=== PATIENT | female | born 1960 | race Caucasian/White ===

== ENCOUNTER 2024-01-04 14:04 | Emergency (ER) | payer OTHER, SELFPAY ==
[2024-01-04] VITALS (21 sets, daily range): BP systolic 137–177; BP diastolic 58–84; PULSE 57–90; RESP 10–20; TEMP 36.2; O2SAT 99–100
--- NOTE | ~2024-01-04 | CT_ITS ---
EXAMINATION: CT abdomen pelvis w con DATE: 01/04/2024 17:26 INDICATION: Abnormal liver function tests. TECHNIQUE: Computed tomography (CT) of the abdomen and pelvis was performed with 100 mL Omnipaque 350 intravenous contrast. Automated exposure control and iterative reconstruction technique were employe d. The dose-length product was 215.28 mGy-cm. COMPARISON: None. FINDINGS: The visualized portions of the lung bases demonstrate mild atelectasis. No pleural effusion . The heart size is normal. No pericardial effusion. The liver, gallbladder, spleen, pancreas, adrena l glands, and kidneys are normal. There is a calcified fibroid in the uterus. There are no dilated lo ops of bowel. There are no pathologically enlarged lymph nodes. There is no free intraperitoneal flui d. There is mild thoracic spondylosis and severe lumbar spondylosis. IMPRESSION: 1. No etiology for abnormal liver function tests. Reviewed, dictated and finalized at location E. THESIOLOGY MEDICAL DOCTOR
--- NOTE | ~2024-01-04 | CT_ITS ---
EXAMINATION: CT brain wo con DATE: 01/04/2024 15:05 INDICATION: Head injury. TECHNIQUE: Computed tomography (CT) of the head was performed without intravenous contrast. The mA wa s adjusted according to patient size. Iterative reconstruction technique was employed. The dose-lengt h product was 605.33 mGy-cm. COMPARISON: None FINDINGS: There is no acute ischemic infarct or acute intracranial hemorrhage. There is periventricul ar nodular brady matter heterotopia. There are scattered areas of low attenuation in the cerebral whit e matter, which is within normal limits for the patient's age. The ventricles are normal in size. The orbits are normal. The paranasal sinuses are clear. The mastoid air cells are normal. IMPRESSION: 1. Brady matter heterotopia. Reviewed, dictated and finalized at location E. TRONICS SUPERVISOR
[2024-01-04 14:25] LABS: Glucose Point of Care 120 mg/dl (65-105)
--- NOTE | 2024-01-04 14:51 | ED.HEATRA ---
HPI - Head Injury General Chief complaint: Head Injury Stated complaint: head injury Time Seen by Provider: 01/04/24 14:26 History of Present Illness HPI Narrative: Patient is a 63-year-old female who presents ER with headache and confusion. 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 She slipped and fell onto her buttock and has a bruise over low back. She then continued her fall and struck her head. She denies losing consciousness. She has had increased tiredness and nausea. She has been vomiting home. She went to an emergency room yesterday and did not receive a CT scan of her head, she only received fluids. Symptoms persist today so they came in for further evaluation. Patient is on no blood thinning agents. Related Data Allergies Allergy/AdvReac Type Severity Reaction Status Date / Time Penicillins Allergy Rash Verified 01/04/24 14:14 Sulfa (Sulfonamide Allergy Rash Verified 01/04/24 14:14 Antibiotics) Review of Systems Review of Systems: All systems reviewed & are unremarkable except as noted in HPI and below Constitutional: Constitutional: Denies chills, Reports fatigue and Denies fever(s) Eyes: Eyes: Denies change in vision Cardiovascular: Cardiovascular: Reports no additional cardiovascular complaints Respiratory: Respiratory: Reports no additional respiratory complaints Gastrointestinal: Gastrointestinal: Reports abdominal pain ( Suprapubic), Denies diarrhea, Reports nausea and Reports vomiting Musculoskeletal: Musculoskeletal: Reports no additional musculoskeletal complaints Integumentary/Breasts: Comments: bruising of blood back Neurologic: Denies syncope, Reports headache(s), Denies focal weakness and Denies numbness PMFSH Past Medical History Medical History (Updated 01/04/24 @ 18:02 by Slava Meraz MD) Healthy female adult Surgical History Surgical History (Updated 01/04/24 @ 17:06 by Slava Meraz MD) No history of previous surgery Exam Narrative: GENERAL: fatigued-appearing, well-nourished, and in no acute distress. HEAD: Normocephalic, atraumatic. EYES: PERRL and EOMI. ENT: Mucous membranes moist. NECK: Supple. CHEST: Clear to auscultation. No respiratory distress. HEART: Regular rate and rhythm. Normal peripheral pulses. ABDOMEN: Soft, mild prepubic discomfort without guarding, nondistended, normal active bowel sounds. Back: No midline tenderness the T/L-spine. No reproducible paraspinal muscle tenderness. EXTREMITIES: Normal range of motion. No edema. SKIN: Warm, dry, no rash. bruising over low back that is starting to yellow. NEURO: Alert and oriented x3. Course Course Emergency Course: patient resting comfortably. She is eating drinking for the 1st time in several days. Nausea improved with Zofran. She has been hydrated. lab results, no acute injury on head CT. Patient does have UTI which could be compounding some her symptoms. Transaminases elevated. Normal CT abd/pel. Vital Signs Vital signs: Vital Signs Temperature 97.2 F L 01/04/24 14:08 Pulse Rate 78 01/04/24 14:08 Respiratory Rate 20 01/04/24 14:08 Blood Pressure 137/58 L 01/04/24 14:08 Pulse Oximetry 99 01/04/24 14:08 Oxygen Delivery Room Air 01/04/24 14:08 Temperature 97.2 F L 01/04/24 14:08 Pulse Rate 78 01/04/24 17:01 Respiratory Rate 15 01/04/24 17:01 Blood Pressure 165/84 H 01/04/24 17:01 Pulse Oximetry 100 01/04/24 16:46 Oxygen Delivery Room Air 01/04/24 14:08 MDM - Head Injury Lab Data 01/04/24 15:12 01/04/24 15:12 Labs: Lab Results 01/04/24 01/04/24 01/04/24 Range/Units 14:21 15:12 15:23 WBC 5.9 (4.5-10.0) K/mm3 RBC 3.70 L (4.2-5.4) M/mm3 Hgb 11.8 L (12.0-15.0) g/dL Hct 34.1 L (37.0-47.0) % MCV 92.2 (80-100) fl MCH 31.9 (26-34) pg MCHC 34.6 (32-36) g/dl RDW 13.4 (11.5-14.5) % Plt Count 286 (150-375) k/
[2024-01-04 15:23] LABS: Basophils Absolute Auto 0.1 K/mm3 (0.0-0.1); Basophils Percent Auto 1.4 % (0.2-1.2); Eosinophils Absolute Auto 0.3 K/mm3 (0-0.3); Eosinophils Percent Auto 4.4 % (0-4.4); Hematocrit 34.1 % (37.0-47.0); Hemoglobin 11.8 g/dL (12.0-15.0); Immature Granulocyte Absolute 0.01 K/mm3 (0.00-0.031); Immature Granulocyte Percent A 0.2 % (0-0.5); Lymphocytes Absolute Auto 1.62 K/mm3 (0.9-3.2); Lymphocytes Percent Auto 27.6 % (18.3-44.2); Mean Corpuscular HGB Conc 34.6 g/dl (32-36); Mean Corpuscular Hemoglobin 31.9 pg (26-34); Mean Corpuscular Volume 92.2 fl (80-100); Mean Platelet Volume 9.3 fl (7.4-10.4); Monocytes Absolute Auto 0.5 K/mm3 (0.1-0.6); Monocytes Percent Auto 8.3 % (2.6-8.5); Neutrophils Absolute Auto 3.4 K/mm3 (1.3-6.7); Neutrophils Percent Auto 58.1 % (45.5-73.1); Platelet Count Result 286 k/mm3 (150-375); Red Cell Distribution Width 13.4 % (11.5-14.5); White Blood Count 5.9 K/mm3 (4.5-10.0)
[2024-01-04] MEDS: ONDANSETRON INJ 4 MG/2 ML VIAL IV PUSH (15:30)
[2024-01-04 15:45] LABS: Alanine Aminotransferase 276 U/L (6-35); Albumin Level 4.1 g/dL (3.5-5.1); Alkaline Phosphatase 72 U/L (38-126); Anion Gap 9 mmol/L (8-16); Aspartate Amino Transferase 258 U/L (14-36); Bilirubin,Total 0.5 mg/dL (0.2-1.3); Blood Urea Nitrogen 6 mg/dL (7-17); Calcium 8.6 mg/dL (8.4-10.2); Carbon Dioxide 25 mmol/L (22-30); Chloride 104 mmol/L (98-107); Estimated CRCL calculation 95 ml/min; Estimated Glomerular Filt Rate > 60; Glucose 112 mg/dL (65-110); Sodium 138 mmol/L (137-145)
[2024-01-04 15:59] LABS: Appearance Urine Turbid (Clear); Bacteria Urine 3+ /hpf; Bilirubin Urine Negative (Negative); Blood Urine Negative (Negative); Color Urine Yellow (Yellow); Glucose Urine UA Negative (Negative); Ketones Urine 1+ mg/dL (Negative); Leukocyte Esterase Ur 1+ LEU/UL (Negative); Need Manual Microscopic Reviewed; Nitrate Urine Negative (Negative); Protein Urine Trace mg/dL (Negative); Squamous Epithelial Cell Urine Many /hpf (Few); WBC Urine 21-50 /hpf; pH Urine 7.5 (5.0-9.0)
[2024-01-04 16:02] LABS: Add Urine Microscopic? YES
== END 2024-01-04 18:28 | disposition home or self-care (01) ==
PROVIDERS: Emergency Provider Emergency Medicine; PCP Internal Medicine Gastroenterology
DX: S06.0X0A Concussion without loss of consciousness, initial encounter (principal); N39.0 Urinary tract infection, site not specified; R74.01 Elevation of levels of liver transaminase levels; W01.0XXA Fall on same level from slipping, tripping and stumbling without subsequent striking against object, initial encounter
CPT/HCPCS: 36415; 70450; 74177; 80053; 81001; 82948; 85025; 87086; 96374; 99284; J2405; Q9967

== ENCOUNTER 2024-11-15 09:09 | Emergency (ER) | payer OTHER, SELFPAY ==
--- NOTE | ~2024-11-15 | CT_ITS ---
EXAMINATION: CT abdomen pelvis w con DATE: 11/15/2024 13:04 INDICATION: Nausea and vomiting TECHNIQUE: Computed tomography (CT) of the abdomen and pelvis was performed with 100 mL Omnipaque-350 intravenous contrast. Automated exposure control and iterative reconstruction technique were employe d. The dose-length product was 205.96 mGy-cm. COMPARISON: 01/04/2024 FINDINGS: Discoid atelectasis in the bilateral lower lobes. Heart size is normal. No pericardial or pleural eff usion. Liver, gallbladder, spleen, pancreas, bilateral adrenal glands and kidneys are normal. 3.4 sim ilar calcified uterine fibroid. No bowel obstruction. Suture line at the cecum likely for ileocolic a nastomosis. Matter is normal. No free intraperitoneal gas or fluid. No pathologically enlarged abdomi nal or pelvic lymphadenopathy. Mild upper lumbar levocurvature with moderate to severe lumbar spondyl osis. IMPRESSION: 1. No acute intra-abdominal/pelvic process. Reviewed, dictated and finalized at location B. ION BUYER
--- NOTE | ~2024-11-15 | CT_ITS ---
EXAMINATION: CT brain wo con DATE: 11/15/2024 13:04 INDICATION: Headache. TECHNIQUE: Computed tomography (CT) of the head was performed without intravenous contrast. The mA wa s adjusted according to patient size. Iterative reconstruction technique was employed. The dose-lengt h product was 605.33 mGy-cm. COMPARISON: Head CT 01/04/2024 FINDINGS: There is no acute ischemic infarct or intracranial hemorrhage. There is periventricular nod ular brady matter heterotopia. The ventricles are normal in size. The paranasal sinuses are clear. The orbits are normal. The mastoid air cells are normal. IMPRESSION: 1. Brady matter heterotopia. Reviewed, dictated and finalized at location A. PUSHER
[2024-11-15 09:13] VITALS: BP 148/67; PULSE 91; RESP 16; TEMP 36.6; O2SAT 98
[2024-11-15 11:41] VITALS: BP 168/74; PULSE 74; RESP 15; O2SAT 100
[2024-11-15 11:44] LABS: Basophils Percent Auto 0.7 % (0.2-1.2); Eosinophils Percent Auto 0.2 % (0-4.4); Hematocrit 36.5 % (37.0-47.0); Hemoglobin 13.1 g/dL (12.0-15.0); Immature Granulocyte Absolute 0.03 K/mm3 (0.00-0.031); Immature Granulocyte Percent A 0.5 % (0-0.5); Lymphocytes Absolute Auto 1.89 K/mm3 (0.9-3.2); Lymphocytes Percent Auto 30.8 % (18.3-44.2); Mean Corpuscular HGB Conc 35.9 g/dl (32-36); Mean Corpuscular Hemoglobin 32.6 pg (26-34); Mean Corpuscular Volume 90.8 fl (80-100); Mean Platelet Volume 9.5 fl (7.4-10.4); Monocytes Absolute Auto 0.4 K/mm3 (0.1-0.6); Monocytes Percent Auto 6.4 % (2.6-8.5); Neutrophils Absolute Auto 3.8 K/mm3 (1.3-6.7); Neutrophils Percent Auto 61.4 % (45.5-73.1); Platelet Count Result 234 k/mm3 (150-375); Red Blood Count 4.02 M/mm3 (4.2-5.4); Red Cell Distribution Width 13.5 % (11.5-14.5); White Blood Count 6.1 K/mm3 (4.5-10.0)
[2024-11-15 11:59] LABS: Alanine Aminotransferase 46 U/L (6-35); Albumin Level 4.4 g/dL (3.5-5.1); Alkaline Phosphatase 68 U/L (38-126); Anion Gap 4 mmol/L (4-12); Aspartate Amino Transferase 54 U/L (14-36); Bilirubin,Total 0.5 mg/dL (0.2-1.3); Blood Urea Nitrogen 10 mg/dL (7-17); Calcium 9.1 mg/dL (8.4-10.2); Carbon Dioxide 27 mmol/L (22-30); Chloride 103 mmol/L (98-107); Estimated CRCL calculation 94 ml/min; Estimated Glomerular Filt Rate > 60; Glucose 116 mg/dL (65-110); Lipase 161 U/L (23-300); Potassium 3.1 mmol/L (3.4-5.0); Sodium 134 mmol/L (137-145)
[2024-11-15 12:15] LABS: Add Urine Microscopic? YES; Appearance Urine Cloudy (Clear); Bacteria Urine None Seen /hpf; Bilirubin Urine Negative (Negative); Blood Urine Negative (Negative); Color Urine Yellow (Yellow); Glucose Urine UA Negative (Negative); Ketones Urine Trace mg/dL (Negative); Leukocyte Esterase Ur Negative LEU/UL (Negative); Need Manual Microscopic Reviewed; Nitrate Urine Negative (Negative); Non Pathogenic Casts 0-2; Protein Urine 1+ mg/dL (Negative); Specific Grav Ur 1.016 (1.001-1.035); Squamous Epithelial Cell Urine None Seen /hpf (Few); WBC Urine 0-5 /hpf (0-3); pH Urine 6.5 (5.0-9.0)
--- NOTE | 2024-11-15 12:49 | ED.ABDPAIN ---
HPI - Abdominal Pain General Chief Complaint: Abdominal Pain Stated Complaint: ROSARIO, abd pain, mult complaints Time Seen by Provider: 11/15/24 12:01 History of Present Illness HPI narrative: 64-year-old female presenting to the emergency department myriad complaints including vague headache, malaise, myalgias, nausea, vomiting, not tolerating p.o. intake for last week. Patient is accompanied by her who provides the majority of collateral formation. Patient is awake alert answers questions although she was uncooperative with triage staff and did not answer questions previously. Patient herself states that she has been feeling weak, myalgias, nauseous and having difficulty eating anything since November 07. Denies any fevers, chills, diarrhea. Patient herself is concerned that she has cancer but is not able to articulate what kind or why she thinks this. Patient has no history of cancer, nonsmoker, no history of breast cancer in the family. Patient's states that they went to [facility] about 4 days prior and she was diagnosed with urinary tract infection and urinary retention. A catheter was placed and she was given ciprofloxacin. they are requesting the catheter be removed as they were not sure with do with it after they were discharged. Related Data Allergies Allergy/AdvReac Type Severity Reaction Status Date / Time Penicillins Allergy Rash Verified 01/04/24 14:14 Sulfa (Sulfonamide Allergy Rash Verified 01/04/24 14:14 Antibiotics) Review of Systems Review of Systems: As reviewed above in HPI [facility] Past Medical History Medical History Healthy female adult Surgical History Surgical History No history of previous surgery Exam Narrative: GENERAL: [Well-appearing, well-nourished, and in no acute distress.] HEAD: [Normocephalic, atraumatic.] pink hair EYES: [PERRLA and EOMI.] ENT: Nares clear, no rhinorrhea or epistaxis. Mucous membranes dry. NECK: Supple. CHEST: [Clear to auscultation. No respiratory distress.] HEART: [Regular rate and rhythm]. No murmur heard. [Normal peripheral pulses.] ABDOMEN: [Soft, nondistended], [nontender], [No rigidity or guarding]. Marinelli catheter and collection system attached the right leg EXTREMITIES: Normal range of motion. [No edema.] SKIN: Warm, dry, no rash. NEURO: [No focal deficits]. Alert and oriented [x3.] PSYCH: sad mood and affect Course Vital Signs Vital signs: Vital Signs Temperature 36.6 C 11/15/24 09:13 Pulse Rate 91 11/15/24 09:13 Respiratory Rate 16 11/15/24 09:13 Blood Pressure 148/67 H 11/15/24 09:13 Pulse Oximetry 98 11/15/24 09:13 Temperature 36.6 C 11/15/24 09:13 Pulse Rate 69 11/15/24 15:58 Respiratory Rate 16 11/15/24 15:58 Blood Pressure 149/87 H 11/15/24 15:58 Pulse Oximetry 100 11/15/24 15:58 MDM - Abdominal Pain MDM Narrative Medical decision making narrative: 64-year-old female presenting with multiple complaints including not eating or drinking, nausea vomiting, headache, myalgias. Patient's states that she has also been confused and delirious intermittently. was treated for urinary tract infection about 4 days ago in an indwelling Marinelli catheter placed for urinary retention. Patient and family requesting this be removed today. Patient has no urinary complaints whatsoever. Patient does have some dry mucous membranes but otherwise not in any acute distress, not ill appearing, answering all questions appropriately. Normal mental status and normal neurological examination. She is slightly hypertensive but no tachycardia, fever, hypoxia. no sensitive or specific exam findings. patient got sick about 1 week ago with nausea and vomiting has been having difficulty tolerating p.o. intake since. Considerations for gastroenteritis, norovirus, flu-like illnesses, other intra-abdominal process also possible. Her urinary tract infection and supposed urinary retention without clear cause also does raise suspicion that something urological could be going on. workup was ordered including laboratory studies, urinalysis, CT of the abdomen CT head, she was given a fluid bolus for hydration. She is given Zofran for nausea vomiting. workup shows no leukocytosis or anemia, normal platelet level. Electrolytes show some mild hypokalemia although this is chronic for her previous levels. She was given oral hydration with potassium chloride supplementation year. Normal renal function, normal glucose, Hepatic function panel very mildly elevated above the upper limit of normal but normal bilirubin, down trending from her previous levels, negative lipase. Urinalysis with some ketones but no signs of infection. Negative COVID flu RSV. CT of the head and CT of the abdomen pelvis shows no acute process. Patient was re-evaluated and tolerating p.o. intake. She had normal reassuring vital signs. I discussed with the patient and the family members at bedside that we do not have a clear explanation for symptoms although she is well appearing, has no acute emergencies and can be safely discharged with PCP follow-up. They were comfortable with this plan of care and there were given return precautions. She was stable for discharge at this time. Medical Records Attestation: I reviewed the patient's medical records. Lab Data Attestation: I reviewed the patient's lab results. 11/15/24 11:37 11/15/24 11:37 Labs: Lab Results 11/15/24 11/15/24 Range/Units 11:37 13:11 WBC 6.1 (4.5-10.0) K/mm3 RBC 4.02 L (4.2-5.4) M/mm3 Hgb 13.1 (12.0-15.0) g/dL Hct 36.5 L (37.0-47.0) % MCV 90.8 (80-100) fl MCH 32.6 (26-34) pg MCHC 35.9 (32-36) g/dl RDW 13.5 (11.5-14.5) % Plt Count 234 (150-375) k/mm3 MPV 9.5 (7.4-10.4) fl Immature Gran % (Auto) 0.5 (0-0.5) % Neut % (Auto) 61.4 (45.5-73.1) % Lymph % (Auto) 30.8 (18.3-44.2) % Loup % (Auto) 6.4 (2.6-8.5) % Eos % (Auto) 0.2 (0-4.4) % Baso % (Auto) 0.7 (0.2-1.2) % Lymph # (Auto) 1.89 (0.9-3.2) K/mm3 Loup # (Auto) 0.4 (0.1-0.6) K/mm3 Eos # (Auto) 0.0 (0-0.3) K/mm3 Baso # (Auto) 0.0 (0.0-0.1) K/mm3 Abs Immat Gran (auto) 0.03 (0.00-0.031) K/mm3 Absolute Neuts (auto) 3.8 (1.3-6.7) K/mm3 Absolute Nucleated RBC 0.000 (0.0-0.012) K/mm3 Nucleated RBC % 0.0 (0.0-0.2) % Sodium 134 L (137-145) mmol/L Potassium 3.1 L (3.4-5.0) mmol/L Chloride 103 (98-107) mmol/L Carbon Dioxide 27 (22-30) mmol/L Anion Gap 4 (4-12) mmol/L BUN 10 (7-17) mg/dL Creatinine 0.40 L (0.7-1.0) mg/dL Estim Creat Clear Calc 94 ml/min Estimated GFR > 60 (59 - ) Glucose 116 H (65-110) mg/dL Calcium 9.1 (8.4-10.2) mg/dL Total Bilirubin 0.5 (0.2-1.3) mg/dL AST 54 H (14-36) U/L ALT 46 H (6-35) U/L Alkaline Phosphatase 68 (38-126) U/L Total Protein 7.0 (6.3-8.2) g/dL Albumin 4.4 (3.5-5.1) g/dL Lipase 161 (23-300) U/L Urine Color Yellow (Yellow) Urine Appearance Cloudy H (Clear) Urine pH 6.5 (5.0-9.0) Ur Specific Erlanger 1.016 (1.001-1.035) Urine Protein 1+ H (Negative) mg/dL Urine Glucose (UA) Negative (Negative) mg/dL Urine Ketones Trace H (Negative) mg/dL Ur Blood (Man) Negative (Negative) Urine Nitrate Negative (Negative) Urine Bilirubin Negative (Negative) Urine Urobilinogen 1.0 (<2.0) mg/dL Add Ur Microanalysis Reviewed Leukocyte Esterase Rfl Negative (Negative) BALAJI/UL Urine RBC 3-5 H (0-2) /hpf Urine WBC 0-5 (0-3) /hpf Ur Squamous Epith Cells None seen (Few) /hpf Urine Bacteria None seen /hpf Urine Casts 0-2 Influenza A (RT-PCR) Negative (Negative) Influenza B (RT-PCR) Negative (Negative) RSV (RT-PCR) Negative (Negative) SARS-CoV-2 RNA (RT-PCR) Negative (Negative) Imaging Data Attestation: I personally reviewed and interpreted this imaging study as follows: Radiologist's impression: ITS Impressions Abdomen/Pelvis CT 11/15/24 13:05 IMPRESSION: 1. No acute intra-abdominal/pelvic process. Head CT 11/15/24 13:06 IMPRESSION: 1. Brady matter heterotopia. Discharge Plan Discharge Clinical Impression: Malaise, Headache, Vomiting, Acute viral syndrome Patient Disposition: Home, Self-Care Condition: Stable Instructions: Antibiotic Form, Acute Nausea and Vomiting (DC), Viral Syndrome (ED) Additional Instructions: your workup and CT scans were very reassuring. No acute emergencies. Please continue taking your antibiotics until completion for your recent urinary tract infection otherwise there is no current signs of an active infection and you can be safely discharged and have your primary care provider follow-up with you in the next several days to weeks. return with any new or worsening concerns at any time. Patient Language: [place] Prescriptions: No Action cefuroxime axetil 500 mg tablet 500 mg PO BID Qty: 14 0RF ondansetron 4 mg tablet,disintegrating 4 mg PO Q6H PRN (Reason: nausea and vomiting) Qty: 10 0RF Follow-up/Referrals: Bryce,Allison Ferguson MD [Primary Care Provider] - Time of Disposition: 15:48
--- NOTE | 2024-11-15 12:53 | PC.NURSE ---
pt mckenzie catheter removed at this time per EDP
[2024-11-15] MEDS: LACTATED RINGERS 1,000 ML 999 ML IV CONT (12:56)
[2024-11-15 13:36] VITALS: BP 150/86; PULSE 86; RESP 14; O2SAT 98
[2024-11-15 14:05] LABS: Influenza A QL RT-PCR Negative (Negative); Influenza B QL RT-PCR Negative (Negative); RSV RNA, RT-PCR Negative (Negative); SARS-CoV-2 RNA PCR Negative (Negative)
[2024-11-15 15:58] VITALS: BP 149/87; PULSE 69; RESP 16; O2SAT 100
[2024-11-15] MEDS: POTASSIUM CHLORIDE 20 MEQ PACKET (FOR LIQUID) 40 MEQ PO (16:00)
--- OUTSIDE RECORDS SUMMARY | 2024-11-22 22:22 | XMS_ITS | Encounter Summary ---
Author Name [facility] [place] [facility] Address [address] [place] [address] Care Team Providers Care Supervisor Shuttle Preparation Name Role Phone JACKIE HAWKINS Primary Care Provider Unavailabl e Insurance Providers: All historical and current Section Date Range: From patient's date of to the date document was created. This section includes the names of all active insurance providers for the patient. Insurance Provider Type of Coverage Plan Name Start of Policy Coverage End of Policy Coverage Group Number Member ID Insurance Provider's Telephone Number Policy Noble's Name Patient's Relationship to Policy Noble [facility] Mar 12, 2010 Jun 18, 2027 [facility] [id number] [phone] ANNE JIMENEZ PATIENT [facility] [employer] [facility] Mar 12, 2010 Jun 18, 2027 [facility] [id number] ANNE JIMENEZ PATIENT Selected Encounter This section includes the information on record at [place] for the Encounter. Date/Time Encounter Type Encounter Description Reason Provider Source Jan 22, 2024 11:30 AM Outpatient Encounter TELEPHONE PRIMARY CARE KRZYSZTOF LE Encounter Template Text not used by [place] Plan of Treatment: Future Appointments (+ 6 months) and Future Tests (+/- 45 days) The Plan of Treatment section includes future care activities for the patient from all [facility] treatment[facility]ilities. This section includes future appointments and future orders which are active, pending or scheduled. Future Appointments This section includes appointments that were scheduled to occur 6 months from the date of the Encounter, up to a maximum of 20 appointments. The data comes from all [place] treatment facilities. Appointment Date/Time Appointment Type Appointme nt Facility Name Jan 23, 2024 10:30 AM AMBULATORY - MEDICINE [facility] Feb 12, 2024 08:30 AM AMBULATORY - PSYCHIATRY [facility] Mar 09, 2024 11:30 AM AMBULATORY - MEDICINE [facility] Apr 18, 2024 10:00 AM AMBULATORY - NONE [facility] May 06, 2024 08:30 AM AMBULATORY - PSYCHIATRY [facility] Jun 05, 2024 10:30 AM AMBULATORY - MEDICINE [facility] Jul 08, 2024 09:45 AM AMBULATORY - REHAB MEDICIN E [facility] Jul 08, 2024 10:00 AM AMBULATORY - SURGERY [facility] Social History: Smoking Status (Most current) and Tobacco Use (All prior to encounter date) This section includes the most current, and the historical, smoking and tobacco- related health factors from the [place] facility where the Encounter took place. Current Smoking Status This section includes the most current smoking, or tobacco-related health factor, from the [place] facility where the Encounter took place. Date/Time Current Smoking Status Comment Facil ity Jul 26, 2023 10:00 AM VA-TOBACCO USE [place] 30 MIN OF WAKEUP [facility] Tobacco Use History This section includes a history of the smoking, or tobacco-related health factors, that were collected on or before the date of the Encounter. The data comes from the [place] facility where the Encounter took place. 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 OPERATOR CONTROL ROOM OPERATOR NO [facility] Jul 26, 2023 10:00 AM VA-TOBACCO USE MED NO [facility] Jul 26, 2023 10:00 AM VA-TOBACCO USE [place] 30 MIN OF WAKEUP [facility] Jul 26, 2023 10:00 AM VA-TOBACCO USER EVERY DAY [facility] Jul 21, 2022 11:00 AM VA-TOBACCO USE 30 YEARS OR MORE [facility] Jul 21, 2022 11:00 AM VA-TOBACCO USE ADVICE [facility] Jul 21, 2022 11:00 AM VA-TOBACCO USE PLANT OPERATOR CONTROL ROOM OPERATOR NO [facility] Jul 21, 2022 11:00 AM VA-TOBACCO USE MED NOTIFY PROVIDER [facility] Jul 21, 2022 11:00 AM VA-TOBACCO USE MED YES [facility] Jul 21, 2022 11:00 AM VA-TOBACCO USE WI 30 MIN OF WAKEUP [facility] Jul 21, 2022 11:00 AM VA-TOBACCO USER EVERY DAY [facility] Jan 13, 2020 10:39 AM VA-TOBACCO USE 30 YEARS OR MORE [facility] Jan 13, 2020 10:39 AM VA-TOBACCO USE ADVICE [facility] Jan 13, 2020 10:39 AM VA-TOBACCO USE PLANT OPERATOR CONTROL ROOM OPERATOR NO [facility] Jan 13, 2020 10:39 AM VA-TOBACCO USE MED YES [facility] Jan 13, 2020 10:39 AM VA-TOBACCO USE WI 30 MIN OF WAKEUP [facility] Jan 13, 2020 10:39 AM VA-TOBACCO USER EVERY DAY [facility] Feb 05, 2019 10:32 AM TOBACCO OFFERED PT MEDS (PROVIDER) [facility] Dec 18, 2018 11:00 AM TOBACCO MEDS OFFER ED BUT DECLINED [facility] Dec 18, 2018 11:00 AM VA-TOBACCO USE > 1 5 LESS THAN 30 YEARS [facility] Dec 18, 2018 11:00 AM VA-TOBACCO USE ADVICE [facility] Dec 18, 2018 11:00 AM VA-TOBACCO USE PLANT OPERATOR CONTROL ROOM OPERATOR NO [facility] Dec 18, 2018 11:00 AM VA-TOBACCO USE MED NOTIFY PROVIDER [facility] Dec 18, 2018 11:00 AM VA-TOBACCO USE [place] 30 MIN OF WAKEUP [facility] Dec 18, 2018 11:00 AM VA-TOBACCO USER EVERY DAY [facility] Encounter Notes: All associated encounter notes This section contains the clinical notes associated to the Encounter. Date/Time Encounter Note(s) Provider Source Jan 22, 2024 11:31 AM NURSING NOTE: LOCAL TITLE: V15 PACT TELEPHONE CONTACT NOTE ST STANDARD TITLE: NURSING NOTE DATE OF NOTE: JAN 22, 2024@11:31 ENTRY DATE: JAN 22, 2024@11:32:15 AUTHOR: KRZYSZTOF LE EXP COSIGNER: URGENCY: STATUS: COMPLETED Patient/Other contacted: Patient Patient Identifiers : Full Name Telephone Number Appointment Reminder: Outbound call to patient to remind of upcoming: Provider in-person with DR HAWKINS Appointment is scheduled for: Jan@10:30 Appointment type: In-person, instructed to: Write down any questions you may have to discuss with your provider at your appointment. Bring any forms or non-VA records if needed. Arrive 15 mins early to check-in allowing time for traffic and parking. Take your medicine as you normally would that morning, and bring all your medicine with you to the appointment: this includes any purchased over the counter that you are using. Clinical reminders: No applicable nurse clinical reminders due at the time of this encounter. Encouraged to contact PC Team with questions/concerns or if need to reschedule/cancel appointment. Provided/reviewed the nurse advice line (ext [phone]) for medical needs after hours. Contact understanding verified by teach back: Yes Total time spent on phone: 5 MINUTES /anastacio/ KRZYSZTOF LE Licensed Practical Nurse Signed: 01/22/2024 11:34 KRZYSZTOF LE [facility]
--- OUTSIDE RECORDS SUMMARY | 2024-11-22 22:22 | XMS_ITS ---
Author Name [facility] [place] Organization [place] Address [address] [place] [address] Care Team Providers Care Senior Quality Technician Name Role Phone ALEX JACKIE Primary Care Provider Unavailabl e Insurance Providers: [...] Noble's Name Patient's Relationship to Policy Noble [facility] Mar 12, 2010 Jun 18, 2027 [facility] [id number] [phone] ANNE JIMENEZ PATIENT [facility] Mar 12, 2010 Jun 18, 2027 [facility] [id number] [phone] ANNE JIMENEZ PATIENT Selected Encounter This section includes the information on record at [place] for the Encounter. Date/Time Encounter Type Encounter Description Reason Pro vider Source Feb 05, 2024 01:53 PM Outpatient Encounter ADMIN PAT ACTIVTIES (ARNELNONCT) IHE Encounter Template Text not used by [place] Plan of Treatment: Future Appointments (+ 6 [...] 20 appointments. The data comes from all [place] treatment facilities. Appointment Date/Time Appointment Type Appointme nt Facility Name Feb 12, 2024 08:30 AM AMBULATORY - PSYCHIATRY [facility] Mar 09, 2024 11:30 AM AMBULATORY - MEDICINE [facility] Apr 18, 2024 10:00 AM [facility] May 06, 2024 08:30 AM AMBULATORY - PSYCHIATRY [facility] Jun 05, 2024 10:30 AM AMBULATORY - MEDICINE [facility] Jul 08, 2024 09:45 AM AMBULATORY - REHAB MEDICIN E [facility] Jul 08, 2024 10:00 AM [facility] Jul 25, 2024 10:30 AM AMBULATORY - MEDICINE [facility] Social History: Smoking Status (Most current) and Tobacco Use (All prior to encounter date) This section includes the most current, and the historical, smoking and tobacco- related health factors from the [place] facility where the Encounter took place. Current Smoking Status This section includes the most current smoking, or tobacco-related health factor, from the [place] facility where the Encounter took place. Date/Time Current Smoking Status Comment Facil ity Jul 26, 2023 10:00 AM VA-TOBACCO USE [place] 30 MIN OF WAKEUP [facility] Tobacco Use History This section includes a history of the smoking, or tobacco-related health factors, that were collected on or before the date of the Encounter. The data comes from the [place] facility where the Encounter took place. Date/Time Smoking Status/Tobacco Use Comment F acility Jul 26, 2023 10:00 AM VA-TOBACCO USE ADVICE [facility] Jul 26, 2023 10:00 AM VA-TOBACCO USE WASTE REMOVALIST NO [facility] Jul 26, 2023 10:00 AM VA-TOBACCO USE MED NO [facility] Jul 26, 2023 10:00 AM VA-TOBACCO USE WI 30 MIN OF WAKEUP [facility] Jul 26, 2023 10:00 AM VA-TOBACCO USER EVERY DAY [facility] Jul 21, 2022 11:00 AM VA-TOBACCO USE 30 YEARS OR MORE [facility] Jul 21, 2022 11:00 AM VA-TOBACCO USE ADVICE [facility] Jul 21, 2022 11:00 AM VA-TOBACCO USE WASTE REMOVALIST NO [facility] Jul 21, 2022 11:00 AM VA-TOBACCO USE MED NOTIFY PROVIDER [facility] Jul 21, 2022 11:00 AM VA-TOBACCO USE MED YES [facility] Jul 21, 2022 11:00 AM VA-TOBACCO USE WI 30 MIN OF WAKEUP [facility] Jul 21, 2022 11:00 AM VA-TOBACCO USER EVERY DAY [facility] Jan 13, 2020 10:39 AM VA-TOBACCO USE 30 YEARS OR MORE [facility] Jan 13, 2020 10:39 AM VA-TOBACCO USE ADVICE [facility] Jan 13, 2020 10:39 AM VA-TOBACCO USE WASTE REMOVALIST NO [facility] Jan 13, 2020 10:39 AM VA-TOBACCO USE MED YES [facility] Jan 13, 2020 10:39 AM VA-TOBACCO USE WI 30 MIN OF WAKEUP [facility] Jan 13, 2020 10:39 AM VA-TOBACCO USER EVERY DAY [facility] Feb 05, 2019 10:32 AM TOBACCO OFFERED PT MEDS (PROVIDER) [facility] Dec 18, 2018 11:00 AM TOBACCO MEDS OFFER ED BUT DECLINED [facility] Dec 18, 2018 11:00 AM VA-TOBACCO USE > 1 5 LESS THAN 30 YEARS [facility] Dec 18, 2018 11:00 AM VA-TOBACCO USE ADVICE [facility] Dec 18, 2018 11:00 AM VA-TOBACCO USE WASTE REMOVALIST NO [facility] Dec 18, 2018 11:00 AM VA-TOBACCO USE MED NOTIFY PROVIDER [facility] Dec 18, 2018 11:00 AM VA-TOBACCO USE [place] 30 MIN OF WAKEUP [facility] Dec 18, 2018 11:00 AM VA-TOBACCO USER EVERY DAY [facility] Encounter Notes: All associated encounter notes This section contains the clinical notes associated to the Encounter. Date/Time Encounter Note(s) Provider Source Feb 05, 2024 01:53 PM ADMINISTRATIVE NOT E: LOCAL TITLE: CONTACT NOTE ST[facility] STANDARD TITLE: ADMINISTRATIVE NOTE DATE OF NOTE: FEB 05, 2024@13:53 ENTRY DATE: FEB 05, 2024@13:54:10 AUTHOR: AURA SHARPE EXP COSIGNER: URGENCY: STATUS: COMPLETED CONTACT NOTE ST[facility] Has ADDENDA Veterans name and last 4 were used to verify identity Verified Veterans telephone #/Updated telephone number in the system REASON FOR CALL: Medications: (please add RNCM/Provider as an additional signer to the note) Medication question: Provider: Alex Question: pricilla would like a phone call regarind simvastatin /anastacio/ AURA FRANCO BL[employer] RAKER Signed: 02/05/2024 13:56 Receipt Acknowledged By: 02/06/2024 10:39 /anastacio/ ADITI GONSALVES REGISTERED NURSE 02/06/2024 ADDENDUM STATUS: COMPLETED I spoke with pt and she was f/u on her 01/2024 visit related to ordering a possible simvastatin or rosuvastain' based on her Jul 2023 igms=[id number] Pt welcomes and anti-chol med the physician deemed needed. Please mail /anastacio/ ADITI GONSALVES REGISTERED NURSE Signed: 02/06/2024 10:39 Receipt Acknowledged By: * AWAITING SIGNATURE * SALLY COLORADO GEVONNA S [facility]
--- OUTSIDE RECORDS SUMMARY | 2024-11-22 22:22 | XMS_ITS | Encounter Summary ---
Author Name [facility] [place] Organization [facility] [place] Address [address] [place] [address] Care Team Providers Care Assistant Operator Name Role Phone ROSS JACKIE Primary Care Provider Unavailabl e Insurance [...] Noble's Name Patient's Relationship to Policy Noble [facility] Mar 12, 2010 Jun 18, 2027 [facility] [id number] [phone] ANNE JIMENEZ PATIENT [facility] Mar 12, 2010 Jun 18, 2027 [facility] [id number] [phone] ANNE JIMENEZ PATIENT Selected Encounter This section includes the information on record at [place] for the Encounter. Date/Time Encounter Type Encounter Description Reason Provider Source Nov 20, 2023 08:30 AM OFFICE O/P EST MOD 30 [facility] - IND ICD-10-CM G47.00 Insomnia, unspecified PEGGY NUNN IHBing Encounter Template Text not used by [place] Assessments - Encounter Diagnoses This section includes the primary and secondary diagnoses documented for the Encounter. Date/Time Primary/Secondary Diagnosis Diagnosis Name Provider Source Nov 20, 2023 06:25 PM PRIMARY Insomnia, unspecified STEPHANIE NUNNBing Crouch [facility] Plan of Treatment: Future Appointments (+ 6 months) and Future Tests (+/- 45 days) The Plan of Treatment section includes future care activities for the patient [facility] [place] [facility] This section includes future appointments and future orders which are active, pending or scheduled. Future Appointments This section includes appointments that were scheduled to occur 6 months from the date of the Encounter, up to a maximum of 20 appointments. The data comes from all [place] treatment facilities. Appointment Date/Time Appointment Type Appointme nt Facility Name Jan 23, 2024 10:30 AM AMBULATORY - MEDICINE [facility] Feb 12, 2024 08:30 AM AMBULATORY - PSYCHIATRY [facility] Mar 09, 2024 11:30 AM AMBULATORY - MEDICINE [facility] Apr 18, 2024 10:00 AM AMBULATORY - NONE [facility] May 06, 2024 08:30 AM AMBULATORY - PSYCHIATRY [facility] Social History: Smoking Status (Most current) and Tobacco Use (All prior to encounter date) This section includes the most current, and the historical, smoking and tobacco- related health factors from the [place] facility where the Encounter took place. Current Smoking Status This section includes the most current smoking, or tobacco-related health factor, from the [place] facility where the Encounter took place. Date/Time Current Smoking Status Comment Alexandra ity Jul 26, 2023 10:00 AM [place]-TOBACCO USER EVERY DAY [facility] Tobacco Use History This section includes a history of the smoking, or tobacco-related health factors, that were collected on or before the date of the Encounter. The data comes from the [place] facility where the Encounter took place. Date/Time Smoking Status/Tobacco Use Comment F acility Jul 26, 2023 10:00 AM [place]-TOBACCO USE ADVICE [facility] Jul 26, 2023 10:00 AM VA-TOBACCO USE FRENCH DRAWER NO [facility] Jul 26, 2023 10:00 AM VA-TOBACCO USE MED NO [facility] Jul 26, 2023 10:00 AM VA-TOBACCO USE WI 30 MIN OF WAKEUP [facility] Jul 26, 2023 10:00 AM VA-TOBACCO USER EVERY DAY [facility] Jul 21, 2022 11:00 AM VA-TOBACCO USE 30 YEARS OR MORE [facility] Jul 21, 2022 11:00 AM VA-TOBACCO USE ADVICE [facility] Jul 21, 2022 11:00 AM VA-TOBACCO USE FRENCH DRAWER NO [facility] Jul 21, 2022 11:00 AM VA-TOBACCO USE MED NOTIFY PROVIDER [facility] Jul 21, 2022 11:00 AM VA-TOBACCO USE MED YES [facility] Jul 21, 2022 11:00 AM VA-TOBACCO USE WI 30 MIN OF WAKEUP [facility] Jul 21, 2022 11:00 AM VA-TOBACCO USER EVERY DAY [facility] Jan 13, 2020 10:39 AM VA-TOBACCO USE 30 YEARS OR MORE [facility] Jan 13, 2020 10:39 AM VA-TOBACCO USE ADVICE [facility] Jan 13, 2020 10:39 AM VA-TOBACCO USE FRENCH DRAWER NO [facility] Jan 13, 2020 10:39 AM VA-TOBACCO USE MED YES [facility] Jan 13, 2020 10:39 AM VA-TOBACCO USE WI 30 MIN OF WAKEUP [facility] Jan 13, 2020 10:39 AM VA-TOBACCO USER EVERY DAY [facility] Feb 05, 2019 10:32 AM TOBACCO OFFERED PT MEDS (PROVIDER) [facility] Dec 18, 2018 11:00 AM TOBACCO MEDS OFFER ED BUT DECLINED [facility] Dec 18, 2018 11:00 AM VA-TOBACCO USE > 1 5 LESS THAN 30 YEARS [facility] Dec 18, 2018 11:00 AM VA-TOBACCO USE ADVICE [facility] Dec 18, 2018 11:00 AM VA-TOBACCO USE FRENCH DRAWER NO [facility] Dec 18, 2018 11:00 AM VA-TOBACCO USE MED NOTIFY PROVIDER [facility] Dec 18, 2018 11:00 AM VA-TOBACCO USE [place] 30 MIN OF WAKEUP [facility] Dec 18, 2018 11:00 AM VA-TOBACCO USER EVERY DAY [facility] Encounter Notes: All associated encounter notes This section contains the clinical notes associated to the Encounter. Date/Time Encounter Note(s) Provider Source Nov 20, 2023 07:08 AM PSYCHIATRY NOTE: LOCAL TITLE: PSYCHIATRY ST STANDARD TITLE: PSYCHIATRY NOTE DATE OF NOTE: NOV 20, 2023@07:08 ENTRY DATE: NOV 20, 2023@07:08:12 AUTHOR: FLOR NUNN COSIGNER: URGENCY: STATUS: COMPLETED PSYCHIATRY ST Has ADDENDA PSYCHIATRIC FOLLOW-UP NOTE [facility] Name: ADRI JIMENEZ Age: 63 Gender: FEMALE Visit Date: NOV 20, 2023 Time: Approximately 830 THIS WAS A [facility] APPOINTMENT and the below were completed prior to our exam: * Consent*: Obtained/confirmed verbal consent for telehealth * Address: Confirmed the location and address of the patient to ensure they are in a safe place and for use in case of an emergency. * Phone Numbers:* Confirmed patient's current phone number - for use if disconnected. Emergency contact's phone number was confirmed. * Surveyed the environment and identified all participants * Locked the virtual conference room once all participants have joined. INTERVAL HISTORY: Dx: 1. Insomnia - found hydroxyzine somewhat helpful, only takes when needed. goes through periods where sleep is more difficult for several days. notes difficulty with sleep maintenance. 2. ADHD per hx 3. anxiety d/o per hx - notes occasional racing thoughts when waking up. exercises regularly 4. recent fall - slipped on wet stairs and hit eye/nose, not feeling sedated at the time. no other recent falls Reports hx of some occasional sad mood during winter months Mood: fairly good , notes occasional periods of low mood but getting outside helps SI: denies SI HI: denies HI Sleep: 6.5 hrs when sleeping well Appetite: trying to lose weight after gaining some weight over the holidays Med compliant: takes as needed Side effects: no side effects PSYCHIATRIC, MEDICAL, FAMILY, SOCIAL HISTORY: ==== see note 09/04/23 for additional hx Medical Hx: chronic knee pain History of TBI: no, does have hx of concussion Seizures: no Thyroid Disease: no Liver disease: no Kidney disease: no Narrow-angle Glaucoma: no Chronic Pain: + chronic pain OUTPATIENT MEDICATIONS: Active Outpatient Medications (including Supplies): No Medications Found No medications found. ACTIVE OUTPATIENT INJECTIONS AND INPATIENT MEDICATIONS No medications found. PSYCHIATRIC SPECIALTY EXAMINATION: ========= VITALS Pulse: 79 (08/28/2023 09:56) Temperature: 97.5 F [36.4 C] (08/28/2023 09:56) Blood Pressure: 120/63 (08/28/2023 09:56) Pain: 0 (08/28/2023 09:56) Weight: 131.9 lb [59.83 kg] (08/28/2023 09:56) Mental Status Exam: *Appearance: appears approximately stated age, bruising around eye *Behavior: cooperative and engaged *Gait: not assessed *Speech: normal rate, volume, and prosody. Normal latency. *Language: no deficits noted *Eye contact: Appropriate *Movements: no abnormal movements appreciated *Mood: fairly good *Affect: full range *Associations: intact *Thought Process: linear, logical *Thought Content: Denies SI/HI. does not endorse AVH. No evidence of delusional thinking. *Insight: Fair *Judgment: Fair *Cognition: Orientation: oriented to situation Memory: no deficits noted Attention: no deficits noted Fund of knowledge: no deficits noted PERTINENT LAB FINDINGS: CBC: WBC 7.4 10*3/uL 08/03/2023 10:10 RBC 4.01 10*6/uL 08/03/2023 10:10 HGB 12.7 g/dL 08/03/2023 10:10 HCT 38.6 % 08/03/2023 10:10 MCV 96.3 fL 08/03/2023 10:10 MCH 31.7 pg 08/03/2023 10:10 MCHC 32.9 L g/dL 08/03/2023 10:10 RDW 13.0 % 08/03/2023 10:10 PLT 284 10*3/uL 08/03/2023 10:10 MPV 10.4 fL 08/03/2023 10:10 NEUTROPHILS 54.8 % 08/03/2023 10:10 LYMPHOCYTES 35.6 % 08/03/2023 10:10 MONOCYTES 7.0 % 08/03/2023 10:10 ATYPICAL LYMPHOCYTES 2.6 % 08/03/2023 10:10 CHEM 7: SODIUM 138 mEq/L 08/03/2023 10:10 POTASSIUM 4.1 mEq/L 08/03/2023 10:10 CHLORIDE 106 mEq/L 08/03/2023 10:10 UREA NITROGEN 9.5 mg/dL 08/03/2023 10:10 CREATININE 0.73 mg/dL 08/03/2023 10:10 CALCIUM 9.6 mg/dL 08/03/2023 10:10 CARBON DIOXIDE 24 mEq/L 08/03/2023 10:10 GLUCOSE 88 mg/dL 08/03/2023 10:10 EGFR (CKD-EPI 2020) 93.5 08/03/2023 10:10 HEPATIC PANEL: No data available SGPT: 19 U/L (08/03/23 10:10) SGOT:20 U/L (08/03/23 10:10) TRIGLYCERIDES:57 mg/dL (08/03/23 10:10) CHOLESTEROL: CHOLESTEROL 216 H mg/dL 08/03/2023 10:10 HEMOGLOBIN AL2:HGA1C 5.3 % 08/03/2023 10:10 TSH:TSH 0.725 uIU/mL 08/03/2023 10:10 ASSESSMENT: some improvement to sleep with hydroxyzine. mood remains fairly stable. Risk Assessment: Based on evaluation, not thought to be at imminent risk of self-harm, harm to others, or self-neglect warranting inpatient hospitalization. Will continue to follow in outpatient setting. Diagnoses (DSM 5 Criteria): Insomnia ADHD, anxiety d/o per hx e/f seasonal affective disorder PLAN: ===== Interventions: Medications: - will continue hydroxyzine 50mg qhs PRN for sleep - may take after mid-night awakening to get back to sleep - if not helpful, will consider reinitiation of low-dose seroquel for insomnia Benefits, alternatives, risks/potential side effects of medication regimen have been discussed w/ pt, who consents to treatment. FOLLOW-UP: Return to clinic in 3 months TIME: Approximately 15 mins /anastacio/ FLOR NUNN Staff Psychiatrist [facility] [id number] Signed: 11/20/2023 18:25 01/23/2024 ADDENDUM STATUS: COMPLETED Dr Nunn, Ms Meyer is seen in primary care today. She reports that hydroxyzine is not helping her sleep She will be following with you on 02/12/24 /anastacio/ JACKIE HAWKINS MD Signed: 01/23/2024 10:42 FLOR NUNN [facility]
--- OUTSIDE RECORDS SUMMARY | 2024-11-22 22:22 | XMS_ITS | Encounter Summary ---
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 Date/Time Encounter Type Encounter Description Reason Provider Source Feb 12, 2024 08:30 AM OFFICE O/P EST MOD 30 MIN [facility] - IND ICD-10-CM G47.00 Insomnia, unspecified PEGGY NUNN IHBing Encounter Template Text not used by [place] Assessments - Encounter Diagnoses This section includes the primary and secondary diagnoses documented for the Encounter. Date/Time Primary/Secondary Diagnosis Diagnosis Name Provider Source Feb 12, 2024 09:12 AM PRIMARY Insomnia, unspecified EDOUARDARTHURRORY Crouch [facility] Plan of Treatment: Future Appointments (+ 6 months) and Future Tests (+/- 45 days) The Plan of Treatment section includes future care activities for the patient from all [place] treatmentfamercy health. This section includes future appointments and future orders which are active, pending or scheduled. Future Appointments This section includes appointments that were scheduled to occur 6 months from the date of the Encounter, up to a maximum of 20 appointments. The data comes from all [place] treatment facilities. Appointment Date/Time Appointment Type Appointme nt Facility Name Mar 09, 2024 11:30 AM AMBULATORY - MEDICINE [facility] Apr 18, 2024 10:00 AM AMBULATORY - NONE [facility] May 06, 2024 08:30 AM AM[facility]ULATORY - PS[facility]CHIATRY [facility] Jun 05, 2024 10:30 AM AMBULATORY - MEDICINE [facility] Jul 08, 2024 09:45 AM AMBULATORY - REHAB MEDICIN E [facility] Jul 08, 2024 10:00 AM AMBULATORY - SURGERY [facility] Jul 25, 2024 10:30 AM AMBULATORY - MEDICINE [facility] Social History: Smoking Status (Most current) and Tobacco Use (All prior to encounter date) This section includes the most current, and the historical, smoking and tobacco- related health factors from the [place] facility where the Encounter took place. Current Smoking Status This section includes the most current smoking, or tobacco-related health factor, from the [place] facility where the Encounter took place. Date/Time Current Smoking Status Comment Facil ity Jul 26, 2023 10:00 AM [place]-TOBACCO USER EVERY DAY [facility] Tobacco Use History This section includes a history of the smoking, or tobacco-related health factors, that were collected on or before the date of the Encounter. The data comes from the [place] facility where the Encounter took place. Date/Time Smoking Status/Tobacco Use Comment F acility Jul 26, 2023 10:00 AM [place]-TOBACCO USE ADVICE [facility] Jul 26, 2023 10:00 AM VA-TOBACCO USE TRIMMER SAWYER NO [facility] Jul 26, 2023 10:00 AM VA-TOBACCO USE MED NO [facility] Jul 26, 2023 10:00 AM VA-TOBACCO USE WI 30 MIN OF WAKEUP [facility] Jul 26, 2023 10:00 AM VA-TOBACCO USER EVERY DAY [facility] Jul 21, 2022 11:00 AM VA-TOBACCO USE 30 YEARS OR MORE [facility] Jul 21, 2022 11:00 AM VA-TOBACCO USE ADVICE [facility] Jul 21, 2022 11:00 AM VA-TOBACCO USE TRIMMER SAWYER NO [facility] Jul 21, 2022 11:00 AM VA-TOBACCO USE MED NOTIFY PROVIDER [facility] Jul 21, 2022 11:00 AM VA-TOBACCO USE MED YES [facility] Jul 21, 2022 11:00 AM VA-TOBACCO USE WI 30 MIN OF WAKEUP [facility] Jul 21, 2022 11:00 AM VA-TOBACCO USER EVERY DAY [facility] Jan 13, 2020 10:39 AM VA-TOBACCO USE 30 YEARS OR MORE [facility] Jan 13, 2020 10:39 AM VA-TOBACCO USE ADVICE [facility] Jan 13, 2020 10:39 AM VA-TOBACCO USE TRIMMER SAWYER NO [facility] Jan 13, 2020 10:39 AM VA-TOBACCO USE MED YES [facility] Jan 13, 2020 10:39 AM VA-TOBACCO USE WI 30 MIN OF WAKEUP [facility] Jan 13, 2020 10:39 AM VA-TOBACCO USER EVERY DAY [facility] Feb 05, 2019 10:32 AM TOBACCO OFFERED PT MEDS (PROVIDER) [facility] Dec 18, 2018 11:00 AM TOBACCO MEDS OFFER ED BUT DECLINED [facility] Dec 18, 2018 11:00 AM VA-TOBACCO USE > 1 5 LESS THAN 30 YEARS [facility] Dec 18, 2018 11:00 AM VA-TOBACCO USE ADVICE [facility] Dec 18, 2018 11:00 AM VA-TOBACCO USE TRIMMER SAWYER NO [facility] Dec 18, 2018 11:00 AM VA-TOBACCO USE MED NOTIFY PROVIDER [facility] Dec 18, 2018 11:00 AM VA-TOBACCO USE WI 30 MIN OF WAKEUP [facility] Dec 18, 2018 11:00 AM VA-TOBACCO USER EVERY DAY [facility] Radiology Reports: +/- 30 days of the encounter Radiology Reports For cases when an order for radiology services may have been completed prior to the date of the Encounter, the report list includes the Radiology Reports that were completed up to 30 days before dateof the Encounter. For cases when an order for radiology services may have been completed after the date of the Encounter, the report list also includes the Radiology Reports that were completed up to30 days after date of the Encounter. The data comes from all [place] treatment facilities. Date/Time Radiology Report Provider Source Mar 09, 2024 10:39 AM US THYROID (NECK SOFT-TISSUE): ADRI JIMENEZ [id number] -[id number] F Exm Date: MAR 09, 2024@10:39 Req Phys: JACKIE HAWKINS Pat Loc: [facility]-PACT C9 PCP (Req'g Loc) Img Loc: [facility]-ULTRASOUND [facility] Service: [address] [address] (Case [id number] COMPLETE) US THYROID (NECK SOFT-TISSUE) (US Detailed) CPT:60399 Reason for Study: lymph node ? :Left behind angle of mandible Clinical History: Report Status: Verified Date Reported: MAR 11, 2024 Date Verified: MAR 11, 2024 Business Objects Report Developer E-[email or web address] CARMONA Report: CASE #: [id number] DATE:03/11/2024 7:56 AM CLINICAL HISTORY:lymph node ? :Left behind angle of mandible TECHNIQUE: US THYROID (NECK SOFT-TISSUE) COMPARISON: None currently available. TECHNIQUE: Real-time ultrasound examination of the soft tissues of the neck was obtained in transverse and longitudinal projections. Limited color Doppler exam was also performed. Prior thyroid ultrasound: N/A FINDINGS: There is a 1.4 x 1.3 x 1.3 cm solid, hypoechoic lesion within the superior/lateral aspect left neck that demonstrates internal vascularity. There is suggestion of adjacent glandular tissue on several of the images. Impression: A 1.4 x 1.3 x 1.3 cm hypoechoic mass is seen within the superior/lateral aspect of the left neck. It is uncertain if this is located within glandular tissue such as the parotid gland. Differential diagnosis includes salivary gland mass versus pathologic lymph node. CT neck with contrast is advised. Additionally, biopsy may be considered. Dictated by Kim Mcdonnell M.D. (Diagnostic Supervisor Final). I, Zhang Carmona, have reviewed the images and report and concur with these findings. Primary Interpreting Staff: ZHANG CARMONA MD (Business Objects Report Developer) Primary Interpreting Resident: Kim Mcdonnell MD, Resident Physician /ZHANG [facility] Encounter Notes: All associated encounter notes This section contains the clinical notes associated to the Encounter. Date/Time Encounter Note(s) Provider Source Feb 12, 2024 07:29 AM PSYCHIATRY NOTE: LOCAL TITLE: PSYCHIATRY ST STANDARD TITLE: PSYCHIATRY NOTE DATE OF NOTE: FEB 12, 2024@07:29 ENTRY DATE: FEB 12, 2024@07:29:32 AUTHOR: FLOR NUNN COSIGNER: URGENCY: STATUS: COMPLETED PSYCHIATRIC FOLLOW-UP NOTE [facility] Name: ADRI JIMENEZ Age: 63 Gender: FEMALE Visit Date: FEB 12, 2024 Time: Approximately 832 THIS WAS A [facility] APPOINTMENT and the below were completed prior [...] joined. INTERVAL HISTORY: Dx: 1. Insomnia - continues to have good streaks of sleep but once a month for a few days will have insomnia. 5-7 hours a night normally. 2. ADHD per hx 3. anxiety d/o per hx - denies significant anxiety presently 4. recent fall - 28 of december had a fall in context of UTI, hit tailbone, did not hit head. no other falls. UTI resolved with medication. 5. hx of cannabis use - pt notes she has cut back a lot , used some yesterday but first time in 2 weeks. no other drug use. no alcohol use since Mood: pretty good , getting to gym pretty regularly, enjoys going to the gym SI: denies HI: denies Appetite: good Med compliant: might take a few nights a month Side effects: denies PSYCHIATRIC, MEDICAL, FAMILY, SOCIAL HISTORY: ==== see note 09/04/23 for additional hx Medical Hx: chronic knee pain History of TBI: no, does have hx of concussion Seizures: no Thyroid Disease: no Liver disease: no Kidney disease: no Narrow-angle Glaucoma: no Chronic Pain: + chronic pain OUTPATIENT MEDICATIONS: Active Outpatient Medications (including Supplies): Active Outpatient Medications Status 1) HYDROXYZINE HCL 50MG TAB TAKE ONE TABLET BY MOUTH AT ACTIVE BEDTIME NEEDED FOR ANXIETY *MAY CAUSE DROWSINESS* No medications found. ACTIVE OUTPATIENT INJECTIONS AND INPATIENT MEDICATIONS No medications found. PSYCHIATRIC SPECIALTY EXAMINATION: ========= VITALS Pulse: 62 (01/23/2024 10:26) Temperature: 97.5 F [36.4 C] (01/23/2024 10:26) Blood Pressure: 130/76 (01/23/2024 10:26) Pain: 0 (01/23/2024 10:26) Weight: 120.1 lb [54.48 kg] (01/23/2024 10:26) Mental Status Exam: *Appearance: appears approximately stated age *Behavior: cooperative and engaged *Gait: not assessed *Speech: normal rate, volume, and prosody. Normal latency. *Language: no deficits noted *Eye contact: Appropriate *Movements: mild and infrequent raising eyebrows/unprompted change in facial expression; denies prior trial of antipsychotic before recent seroquel use in the past. no other abnormal movements appreciated *Mood: pretty good *Affect: full range *Associations: intact *Thought Process: linear, logical *Thought Content: Denies SI/HI. Does not endorse AVH. No evidence of delusional [...] 10:10 TSH:TSH 0.725 uIU/mL 08/03/2023 10:10 ASSESSMENT: ongoing difficulty with insomnia, no benefit from hydroxyzine. infrequent and very mild facial movements do not prompt concern for TD presently in absence of prior antipsychotic use. Risk Assessment: Based on evaluation, not thought to be at imminent risk of self-harm, harm to others, or self-neglect warranting inpatient hospitalization. Will continue to follow in outpatient setting. Diagnoses (DSM 5 Criteria): Insomnia ADHD, anxiety d/o per hx e/f depression w/ seasonal component PLAN: ===== Interventions: Psychiatric Medications: - discontinue hydroxyzine 50mg qhs PRN as not helpful - retrial quetiapine 25-50mg qhs PRN -given benefit from quetiapine in the past, infrequent use, and failed trials of alternative agents, will restart low dose PRN quetiapine for sleep. pt reports anxiety/stress can influence sleep at prior interview; PRN quetiapine may also provide benefit for anxiety. -encouraged pt to trial 25mg dose initially, may increase to 50mg if well-tolerated -Discussed benefits, alternatives, risks/potential side effects including but not limited to black box warning regarding increased risk of in the elderly and increased risk of SI; Risk of EPS and in particular tardive dyskinesia, including that TD may be permanent. -discussed fall risk; encouraged pt to notify provider if she experiences fall -AIMS: may perform at future appt particularly if pt taking more regularly, but overall minimal risk of TD/EPS given infrequent use -Metabolic labs: 07/2023 HA1C 5.3, LDL 162, total chol 216 -Benefits, alternatives, risks/potential side effects of medication regimen have been discussed w/ pt, who consents to treatment. FOLLOW-UP: Return to clinic in 3 months TIME: Approximately 20 mins /es/ FLOR NUNN Staff Psychiatrist [facility] [id number] Signed: 02/12/2024 09:12 FLOR NUNN [facility]
--- OUTSIDE RECORDS SUMMARY | 2024-11-22 22:22 | XMS_ITS | Encounter Summary ---
Author Name [facility] [place] Organization [facility] [place] Address [address] [place] [address] Care Team Providers Care Energy Conservation Engineer Name Role Phone PATRICK JOHNSON Primary Care Provider Unavailabl e Insurance Providers: [...] P[place] Mar 12, 2010 Jun 18, 2027 [facility] [id number] [phone] ANNE HUNT PATIENT [facility] [facility] Mar 12, 2010 Jun 18, 2027 [facility] [id number] ANNE HUNT PATIENT Selected Encounter This section includes the information on record at [place] for the Encounter. Date/Time Encounter Type Encounter Description Reason Provider Source Jan 23, 2024 10:30 AM OFFICE O/P EST MOD 30 MIN PRIMARY CARE/MEDICINE ICD-10-CM R22.1 Localized swelling, mass and lump, neck PATRICK JOHNSON IHBing Encounter Template Text not used by [place] Assessments - Encounter Diagnoses This section includes the primary and secondary diagnoses documented for the Encounter. Date/Time Primary/Secondary Diagnosis Diagnosis Name Provider Source Jan 23, 2024 11:19 AM PRIMARY Localized swelling, mass and lump, neck ALESHAPATRICK TOM [facility] Jan 23, 2024 11:19 AM SECONDARY Encounter for immunization RINA PAREKH [facility] Jan 23, 2024 11:19 AM SECONDARY Insomnia, unspecified PATRICK JOHNSON [facility] Jan 23, 2024 11:19 AM SECONDARY Nicotine dependence, unspecified, uncomplicated [facility] Plan of Treatment: Future Appointments (+ 6 months) and Future Tests (+/- 45 days) The Plan of Treatment section includes future care activities for the patient from all [facility]. This section includes future appointments and future orders which are active, pending or scheduled. Future Appointments This section includes appointments that were scheduled to occur 6 months from the date of the Encounter, up to a maximum of 20 appointments. The data comes from all [facility]. Appointment Date/Time Appointment Type Appointme nt Facility Name Feb 12, 2024 08:30 AM AMBULATORY - PSYCHIATRY [facility] Mar 09, 2024 11:30 AM AMBULATORY - MEDICINE [facility] Apr 18, 2024 10:00 AM AMBULATORY - NONE [facility] May 06, 2024 08:30 AM AMBULATORY - PSYCHIATRY [facility] Jun 05, 2024 10:30 AM AMBULATORY - MEDICINE [facility] Jul 08, 2024 09:45 AM AMBULATORY - REHAB MEDICIN E [facility] Jul 08, 2024 10:00 AM AMBULATORY - SURGERY [facility] Jul 25, 2024 10:30 AM AMBULATORY - MEDICINE [facility] Vital Signs: All taken on the encounter date This section contains inpatient and outpatient Vital Signs collected on the date of the Encounter. Date/Time Temperature Pulse Blood Pressure Respiratory Rate SP02 Pain Height Weight Body Mass Index Source Jan 23, 2024 10:26 AM 130/76 [facility] Jan 23, 2024 10:26 AM 97.5 62 145/77 18 100 0 120.1 22 [facility] Immunizations: All administered on the encounter date This section contains immunizations associated to the Encounter. Immunization Series Date Issued Reaction Comments RSV, BIVALENT, PROTEIN SUBUN IT RSVPREF, DILUENT RECONSTITUTED, 0.5 ML, PF Jan 23, 2024 Social History: Smoking Status (Most current) and Tobacco Use (All prior to encounter date) This section includes the most current, and the historical, smoking and tobacco- related health factors from the [place] facility where the Encounter took place. Current Smoking Status This section includes the most current smoking, or tobacco-related health factor, from the [place] facility where the Encounter took place. Date/Time Current Smoking Status Comment Facil ity Jul 26, 2023 10:00 AM VA-TOBACCO USER EVERY DAY [facility] Tobacco Use History This section includes a history of the smoking, or tobacco-related health factors, that were collected on or before the date of the Encounter. The data comes from the [place] facility where the Encounter took place. Date/Time Smoking Status/Tobacco Use Comment F acility Jul 26, 2023 10:00 AM VA-TOBACCO USE ADVICE [facility] Jul 26, 2023 10:00 AM VA-TOBACCO USE BARREL POLISHER NO [facility] Jul 26, 2023 10:00 AM VA-TOBACCO USE MED NO [facility] Jul 26, 2023 10:00 AM VA-TOBACCO USE [place] [address] [facility] Jul 26, 2023 10:00 AM VA-TOBACCO USER EVERY DAY [facility] Jul 21, 2022 11:00 AM VA-TOBACCO USE [address] [facility] Jul 21, 2022 11:00 AM VA-TOBACCO USE ADVICE [facility] Jul 21, 2022 11:00 AM VA-TOBACCO USE BARREL POLISHER NO [facility] Jul 21, 2022 11:00 AM VA-TOBACCO USE MED NOTIFY PROVIDER [facility] Jul 21, 2022 11:00 AM VA-TOBACCO USE MED YES [facility] Jul 21, 2022 11:00 AM VA-TOBACCO USE [place] [address] [facility] Jul 21, 2022 11:00 AM VA-TOBACCO USER EVERY DAY [facility] Jan 13, 2020 10:39 AM VA-TOBACCO USE [address] [facility] Jan 13, 2020 10:39 AM VA-TOBACCO USE ADVICE [facility] Jan 13, 2020 10:39 AM VA-TOBACCO USE BARREL POLISHER NO [facility] Jan 13, 2020 10:39 AM VA-TOBACCO USE MED YES [facility] Jan 13, 2020 10:39 AM VA-TOBACCO [place] [address] [facility] Jan 13, 2020 10:39 AM VA-TOBACCO USER EVERY DAY [facility] Feb 05, 2019 10:32 AM TOBACCO OFFERED PT MEDS (PROVIDER) [facility] Dec 18, 2018 11:00 AM TOBACCO MEDS OFFER ED BUT DECLINED [facility] Dec 18, 2018 11:00 AM VA-TOBACCO USE > 1 [address]ESS THAN [address] [facility] Dec 18, 2018 11:00 AM VA-TOBACCO USE ADVICE [facility] Dec 18, 2018 11:00 AM VA-TOBACCO USE BARREL POLISHER NO [facility] Dec 18, 2018 11:00 AM VA-TOBACCO USE MED NOTIFY PROVIDER [facility] Dec 18, 2018 11:00 AM VA-TOBACCO USE [place] [address] [facility] Dec 18, 2018 11:00 AM VA-TOBACCO USER EVERY DAY [facility] Encounter Notes: All associated encounter notes This section contains the clinical notes associated to the Encounter. Date/Time Encounter Note(s) Provider Source Jun 11, 2024 08:16 AM ADDENDUM: LOCAL TITLE: Addendum STANDARD TITLE: ADDENDUM DATE OF NOTE: JUN 11, 2024@08:16:42 ENTRY DATE: JUN 11, 2024@08:16:43 AUTHOR: PATRICK JOHNSON COSIGNER: URGENCY: STATUS: COMPLETED The letter written to this patient on: DATE OF NOTE: JUN 11, 2024@08:11 ENTRY DATE: JUN 11, 2024@08:11:13 is kindly to be mailed to her by CERTIFIED MAIL CC: JAIME Norris /anastacio/ PATRICK JOHNSON MD Signed: 06/11/2024 08:17 Receipt Acknowledged By: 06/11/2024 11:19 /anastacio/ AKILAH RIOS ADVANCED YARN CARRIER --- Original Document --- 01/23/24 PRIMARY CARE PROVIDER ESTABLISHED VISIT STL: this is a 59 old WHITE FEMALE Service Connected: NO, NOT A . PMH/PSH: Pneumonia wrist, knee pains (had tendonitis one side and CTS on the other wrist) She says L knee is reported to be bone on bone She reports having a concussion earlier in01/2022 appendectomy R TKR nurse note from today reviewed. C/C: -here for check up of her medical problems -is still not able to sleep, even with hydroxyzine -Lump L neck remains unchanged, has had for a long time SINCE PREVIOUS VISIT OF 07/26/2023: -per psychiatry 11/20/22: Insomnia,ADHD, anxiety d/o per hx e/f seasonal affective disorder. Contd hydroxyzine, considering quetiapine if symptoms persist -saw urologist 08/2023: Uterine Fibroid and Bilateral Hydroureteroneprhosis found on 12/2022 [facility] CT. However 08/24/23 CT demonstrating a 3 mm Right renal vacular calcification w/calcified uterine fibroid but failing to demonstrate any hydro. Advised return to clinic PRN -FIT negative on 07/26/23 [place]: as above ROS: comprehensive ROS negative except as stated above ALLERGIES: PCN: hives sulfas: unknown [place]: FHx: as of 02/05/19 (wa adopted and not sure of FHx) CAD: de HTN: de stroke: de DM: de malignancy: half B (lung) mother is alive and may have some dementia (mother, f =father, s =sister, b= Brother, gf=grandfather, gm=grand mother, u=uncle, d=daughter a=aunt, De=denied, U=unsure) SoHx: as of 02/05/19 tobacco: smoker since 21 yoa, about 3/4 ppd alcohol: about once a month, 4-5 drinks over 2 days in a month drugs: marijuana every other day (quarter oz a month) 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 01/23/24: lump palpable approximately 1 cm in max dimension ----> LABS [ x ] reviewed and pertinent labs noted in A/P A/P: patient last seen by this provider in full scheduled OV: 07/26/23 She gives the name of her non va PCP: Dr Harry Wu, works out of [employer] [facility] #) insomnia / anxiety and was taking an unknown dose of quetiapine about 3 days a month -per psychiatry 11/20/22: Insomnia,ADHD, anxiety d/o per hx e/f seasonal affective disorder. Contd hydroxyzine, considering quetiapine if symptoms persist. She reports that hydroxyzine is not helpful for sleep, is willing to wait for evaluation by psychiatrist scheduled for 02/12/24 ([facility] appt) #) Lipids: -LDL 162, 10-year risk ASCVD 8.1% % per labs 08/03/23 LDL increased from 103 to 162 from 01/2029 to 07/2023 Dscussed w patient and she is not interested in anti lipid meds at this time She says she has been eating healthy for past 2 weeks, will maintain that diet and recheck lipids at next visit and consider statins if necessary #) Previously palpated lump left neck, just anterior to upper limit of sternomastoid muscle, was inadvertently not examined today -CT soft tissues neck 09/04/19: -The skin marker indicating the patient's finding of concern directly overlies the inferior margin of the parotid gland. -Prominent cervical spondylarthritis. -Centrilobular pulmonary emphysema. -Referred to ENT 09/07/19 -> faled mandated scheduling effort. Will get US soft tissues neck and refer to ENT if necessary #) L knee pain: -she initially agreed to getting XR and referral to PT, later decided to hold off as pain not that bad . Did not have this complaint today #) R knee pain (S/P R TKR pain manageable, does not want an intervention NOt a concern today #) mild neck pain off and on, does not feel a need for any intervention at this time NOt a concern today # centrilobular emphysema seen on CT 09/04/19 #) nicotine dependence: ill effects discussed. She acknowledges understanding. She has been prescribed nicotine patches and gum in the past, She continues to smoke and is not ready to quit at this time #) Health maintenance: -Pap negative and HPV mRNA E6/E7: Not detected on the same date -FIT negative on 06/12/19 -she says had a colonoscopy in last few years, will get future f/u w non va provider and will f/u with non [facility] for follow up pap smears and mammogram she will send us reports of her pap co test which she says she got done last year. She says she will get mammogram done by a non va provider RTC: ~ 07/25/24 Plan of care has been discussed with including expected therapeutic benefits and potential side effects of prescribed medication and treatments. verbalizes understanding and is in agreement with the plan of care. Patient was instructed to keep all scheduled appointments and contact direct selling counselor for any additional problems. Some of this encounter was/ may have created using MYFXation system speech recognition software without human yeast tender. This documentation may or may not have been adjusted for typographical, grammatical or syntax imperfections /anastacio/ PATRICK JOHNSON MD Signed: 01/24/2024 15:31 05/04/2024 ADDENDUM STATUS: COMPLETED US thyroid neck 03/09/24: Impression: A 1.4 x 1.3 x 1.3 cm hypoechoic mass is seen within the superior/lateral aspect of the left neck. It is uncertain if this is located within glandular tissue such as the parotid gland. Differential diagnosis includes salivary gland mass versus pathologic lymph node. CT neck with contrast is advised. Additionally, biopsy may be considered. CT neck soft tissue neck 04/18/24: Questionable hypodensity in the inferior aspect of the left parotid gland as discussed above may represent a true lesion or a pseudolesion. Consultation with interventional radiology and ultrasound guided tissue sampling is recommended. Discussed above with the patient over the phone, she notes that the lump has not become any larger in past 3 years, but prefers referral toIR for possible biopsy rather that watchful waiting. /anastacio/ PATRICK JOHNSON MD Signed: 05/04/2024 16:10 PATRICK JOHNSON [facility] Jun 11, 2024 08:11 AM PHYSICIAN LETTERS: LOCAL TITLE: PHYSICIAN LETTERS STANDARD TITLE: PHYSICIAN LETTERS DATE OF NOTE: JUN 11, 2024@08:11 ENTRY DATE: JUN 11, 2024@08:11:13 AUTHOR: PATRICK JOHNSON EXP COSIGNER: URGENCY: STATUS: COMPLETED [facility] [address] [place] [address] SUMMER HUNT [address] [place], [place] [address] Dear Summer Hunt: THIS LETTER IS SENT BY CERTIFIED MAIL. I attempted to contact you by phone this morning, but kept reaching your voice mail. 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 I have referred you to the ENT clinic for further evaluation, discussion and management. Hopefully, the ENT clinic will contact you for an appointment. Should the ENT clinic not be able to contect you, and if they leave a message on your voice mail, then please do return their call to schedule an appointment with their clinic. Please contact our clinic at [phone] if you have any questions. Sincerely, PATRICK HUNT,PATRICK GARAY [facility] Apr 19, 2024 08:09 AM ADDENDUM: LOCAL TITLE: Addendum STANDARD TITLE: ADDENDUM DATE OF NOTE: APR 19, 2024@08:09:28 ENTRY DATE: APR 19, 2024@08:09:29 AUTHOR: MARGUERITE KIM EXP COSIGNER: URGENCY: STATUS: COMPLETED CT came back with some abnormalities. I will include Dr. Johnson on this note as he is now back in clinic. /anastacio/ MARGUERITE KIM MD PhD STAFF PHYSICIAN Signed: 04/19/2024 08:10 Receipt Acknowledged By: 05/04/2024 16:11 /anastacio/ PATRICK JOHNSON MD --- Original Document --- 03/11/24 ADMINISTRATIVE STL: Needs followup neck CT Spoke with by telephone at 10:00 AM on 03/13/24. Will proceed with CT neck. /anastacio/ MARGUERITE KIM MD PhD STAFF PHYSICIAN Signed: 03/13/2024 10:01 MARGUERITE KIM [facility] Mar 11, 2024 04:13 PM ADMINISTRATIVE NOTE: LOCAL TITLE: ADMINISTRATIVE STL STANDARD TITLE: ADMINISTRATIVE NOTE DATE OF NOTE: MAR 11, 2024@16:13 ENTRY DATE: MAR 11, 2024@16:13:20 AUTHOR: MARGUERITE KIM EXP COSIGNER: URGENCY: STATUS: COMPLETED ADMINISTRATIVE STL Has ADDENDA Needs followup neck CT Spoke with by telephone at 10:00 AM on 03/13/24. Will proceed with CT neck. /anastacio/ MARGUERITE KIM MD PhD STAFF PHYSICIAN Signed: 03/13/2024 10:01 04/19/2024 ADDENDUM STATUS: COMPLETED CT came back with some abnormalities. I will include Dr. Johnson on this note as he is now back in clinic. /anastacio/ MARGUERITE KIM MD PhD STAFF PHYSICIAN Signed: 04/19/2024 08:10 Receipt Acknowledged By: * AWAITING SIGNATURE * PATRICK JOHNSON ROGER B [facility] Jan 23, 2024 11:25 AM NURSING IMMUNIZATION NOTE: LOCAL TITLE: CLINIC ADMINISTERED IMMUNIZATION/MEDICATION(S) STANDARD TITLE: NURSING IMMUNIZATION NOTE DATE OF NOTE: JAN 23, 2024@11:25:49 ENTRY DATE: JAN 23, 2024@11:25:49 AUTHOR: CJ PAREKH EXP COSIGNER: URGENCY: STATUS: COMPLETED Administered: RSV, BIVALENT, PROTEIN SUBUNIT RSVPREF, DILUENT RECONSTITUTED, 0.5 ML, PF Date Administered: Jan 23, 2024 10:30 Asbestos Surveyor: [employer] Lot: [id number] Exp Date: Jan 10, 2025 Admin Route/Site: INTRAMUSCULAR/LEFT DELTOID Dosage: 0.5mL Vaccine Information Statement(s): RSV (RESPIRATORY SYNCYTIAL VIRUS) VACCINE VIS Aug 31, 2023 ([facility]) Order By: Patrick Johnson Administered By: Cj Parekh /marianna PAREKH Licensed Practical Nurse Signed: 01/23/2024 11:26 CJ PAREKH [facility] Jan 23, 2024 10:30 AM PRIMARY CARE NOTE: LOCAL TITLE: PRIMARY CARE PROVIDER ESTABLISHED VISIT [facility] STANDARD TITLE: PRIMARY CARE NOTE DATE OF NOTE: JAN 23, 2024@10:30 ENTRY DATE: JAN 18, 2024@06:54:48 AUTHOR: PATRICK JOHNSON EXP COSIGNER: URGENCY: STATUS: COMPLETED PRIMARY CARE PROVIDER ESTABLISHED VISIT ST Has ADDENDA this is a 59 old WHITE FEMALE Service Connected: NO, NOT A . PMH/PSH: Pneumonia wrist, knee pains (had tendonitis one side and CTS on the other wrist) She says L knee is reported to be bone on bone She reports having a concussion earlier in01/2022 appendectomy R TKR nurse note from today reviewed. C/C: -here for check up of her medical problems -is still not able to sleep, even with hydroxyzine -Lump L neck remains unchanged, has had for a long time SINCE PREVIOUS VISIT OF 07/26/2023: -per psychiatry 11/20/22: Insomnia,ADHD, anxiety d/o per hx e/f seasonal affective disorder. Contd hydroxyzine, considering quetiapine if symptoms persist -saw urologist 08/2023: Uterine Fibroid and Bilateral Hydroureteroneprhosis found on 12/[address]22 [facility] [address]. However 08/24/23 CT demonstrating a 3 mm Right renal vacular calcification w/calcified uterine fibroid but failing to demonstrate any hydro. Advised return to clinic PRN -FIT negative on 07/26/23 [place]: as above ROS: comprehensive ROS negative except as stated above ALLERGIES: PCN: hives sulfas: unknown [place]: FHx: as of 02/05/19 (wa adopted and not sure of FHx) CAD: de HTN: de stroke: de DM: de malignancy: half B (lung) mother is alive and may have some dementia (mother, f =father, s =sister, b= Brother, gf=grandfather, gm=grand mother, u=uncle, d=daughter a=aunt, De=denied, U=unsure) SoHx: as of 02/05/19 tobacco: smoker since 21 yoa, about 3/4 ppd alcohol: about once a month, 4-5 drinks over 2 days in a month drugs: marijuana every other day (quarter oz a month) 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 01/23/24: lump palpable approximately 1 cm in max dimension ----> LABS [ x ] reviewed and pertinent labs noted in A/P A/P: patient last seen by this provider in full scheduled OV: 07/26/23 She gives the name of her non va PCP: Dr Harry Wu, works out of [facility] #) insomnia / anxiety and was taking an unknown dose of quetiapine about 3 days a month -per psychiatry 11/20/22: Insomnia,ADHD, anxiety d/o per hx e/f seasonal affective disorder. Contd hydroxyzine, considering quetiapine if symptoms persist. She reports that hydroxyzine is not helpful for sleep, is willing to wait for evaluation by psychiatrist scheduled for 02/12/24 ([facility] appt) #) Lipids: -LDL 162, 10-year risk ASCVD 8.1% % per labs 08/03/23 LDL increased from 103 to 162 from 01/2029 to 07/2023 Dscussed w patient and she is not interested in anti lipid meds at this time She says she has been eating healthy for past 2 weeks, will maintain that diet and recheck lipids at next visit and consider statins if necessary #) Previously palpated lump left neck, just anterior to upper limit of sternomastoid muscle, was inadvertently not examined today -CT soft tissues neck 09/04/19: -The skin marker indicating the patient's finding of concern directly overlies the inferior margin of the parotid gland. -Prominent cervical spondylarthritis. -Centrilobular pulmonary emphysema. -Referred to ENT 09/07/19 -> faled mandated scheduling effort. Will get US soft tissues neck and refer to ENT if necessary #) L knee pain: -she initially agreed to getting XR and referral to PT, later decided to hold off as pain not that bad . Did not have this complaint today #) R knee pain (S/P R TKR pain manageable, does not want an intervention NOt a concern today #) mild neck pain off and on, does not feel a need for any intervention at this time NOt a concern today # centrilobular emphysema seen on CT 09/04/19 #) nicotine dependence: ill effects discussed. She acknowledges understanding. She has been prescribed nicotine patches and gum in the past, She continues to smoke and is not ready to quit at this time #) Health maintenance: -Pap negative and HPV mRNA E6/E7: Not detected on the same date -FIT negative on 06/12/19 -she says had a colonoscopy in last few years, will get future f/u w non va provider and will f/u with non va [facility] for follow up pap smears and mammogram she will send us reports of her pap co test which she says she got done last year. She says she will get mammogram done by a non va provider RTC: ~ 07/25/24 Plan of care has been discussed with including expected therapeutic benefits and potential side effects of prescribed medication and treatments. verbalizes understanding and is in agreement with the plan of care. Patient was instructed to keep all scheduled appointments and contact direct selling counselor for any additional problems. Some of this encounter was/ may have created using MYFXation system speech recognition software without human yeast tender. This documentation may or may not have been adjusted for typographical, grammatical or syntax imperfections /es/ PATRICK JOHNSON MD Signed: 01/24/2024 15:31 05/04/2024 ADDENDUM STATUS: COMPLETED US thyroid neck 03/09/24: Impression: A 1.4 x 1.3 x 1.3 cm hypoechoic mass is seen within the superior/lateral aspect of the left neck. It is uncertain if this is located within glandular tissue such as the parotid gland. Differential diagnosis includes salivary gland mass versus pathologic lymph node. CT neck with contrast is advised. Additionally, biopsy may be considered. CT neck soft tissue neck 04/18/24: Questionable hypodensity in the inferior aspect of the left parotid gland as discussed above may represent a true lesion or a pseudolesion. Consultation with interventional radiology and ultrasound guided tissue sampling is recommended. Discussed above with the patient over the phone, she notes that the lump has not become any larger in past 3 years, but prefers referral toIR for possible biopsy rather that watchful waiting. /marianna JOHNSON MD Signed: 05/04/2024 16:10 06/11/2024 ADDENDUM STATUS: COMPLETED The letter written to this patient on: DATE OF NOTE: JUN 11, 2024@08:11 ENTRY DATE: JUN 11, 2024@08:11:13 is kindly to be mailed to her by CERTIFIED MAIL CC: JAIME Norris /marianna JOHNSON MD Signed: 06/11/2024 08:17 Receipt Acknowledged By: 06/11/2024 11:19 /marianna RIOS ADVANCED YARN CARRIER 06/12/2024 ADDENDUM STATUS: COMPLETED this account underwriter was able to successfully contact the patient today. Discussed report of FNA biopsy of neck lump. Informed her of referral to ENT. She acknowledged understanding and agreed to the referral /marianna JOHNSON MD Signed: 06/12/2024 16:25 PATRICK JOHNSON [facility] Jan 23, 2024 10:28 AM NURSING NOTE: LOCAL TITLE: V15 PACT FACE TO FACE NOTE ST STANDARD TITLE: NURSING NOTE DATE OF NOTE: JAN 23, 2024@10:28 ENTRY DATE: JAN 23, 2024@10:28:23 AUTHOR: CJ PAREKH EXP COSIGNER: URGENCY: STATUS: COMPLETED Provider Visit: Patient Identifiers : Full Name Reason for visit: Established Follow-Up Mode of Arrival: Ambulatory Allergy Review: PENICILLIN, SULFA DRUGS Allergy list reviewed and remains current. Recent Vital Signs: Temperature: 97.5 F [36.4 C] (01/23/2024 10:26) Pulse: 62 (01/23/2024 10:26) Respiration: 18 (01/23/2024 10:26) B/P: 130/76 (01/23/2024 10:26) Pain: 0 (01/23/2024 10:26) Wt: 120.1 lb [54.48 kg] (01/23/2024 10:26) Ht: 62 in [157.5 cm] (08/28/2023 09:56) BMI: 22.0 POX: 100% (01/23/2024 10:26) Would you like to discuss any personal problem, family problem, alcohol use, drug use, or a mental or emotional illness? No Contact provided Primary Care phone number and encouraged to call if any questions or concerns. Review that after hours nurse line [phone] and emergency room are available 05/06 for patient use. Contact verbalized good understanding. /[email or web address]/ CJ PAREKH Licensed Practical Nurse Signed: 01/23/2024 10:29 CJ PAREKH [facility]
--- OUTSIDE RECORDS SUMMARY | 2024-11-22 22:22 | XMS_ITS | Continuity of Care Document ---
Author Name [facility] Organization [facility] Care Team Providers Care Lion Hunter Name Role Phone [facility] Unavailable Unavailable Problems Combined list of problems from Department of Defense and [facility] Affairs facilities. It does not include entries that were removed or entered in error. Problem Status Onset Date Problem Type Date of Resolution Comments Source Abnormal weight loss Active Condition [facility] Cervicalgia Active Condition [facility] Gynecological examination normal Active Condition [facility] Insomnia Active Condition [facility] Knee pain (SNOMED CT [id number]) Active Condition [facility] Lump on neck Active Condition [facility] Nicotine dependence Active Condition [facility] Diagnosis: ICD-10-CM R11.2 Nausea with vomiting, unspecified Active Diagnosis [facility] Diagnosis: ICD-10-CM B96.81 Helicobacter pylori as the cause of diseases classd elswhr Active Diagnosis [facility] Admit Reason: FAILURE TO THRIVE Active Diagnosis 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 [facility] Diagnosis: ICD-10-CM R49.0 Dysphonia Active Diagnosis [facility] Diagnosis: ICD-10-CM R89.9 Unsp abnormal finding in specimens from oth org/tiss Active Diagnosis [facility] Diagnosis: ICD-10-CM R22.1 Localized swelling, mass and lump, neck Active Diagnosis [facility] Diagnosis: ICD-10-CM G47.00 Insomnia, unspecified Active Diagnosis [facility] Diagnosis: ICD-10-CM I70.1 Atherosclerosis of renal artery Active Diagnosis [facility] Diagnosis: ICD-10-CM F43.23 Adjustment disorder with mixed anxiety and depressed mood Active Diagnosis [facility] Medications Combined list of outpatient medications from Department of Defense and Veterans Affairs facilities.Medications provided include 1) outpatient medications from the last 15 months, and 2) patient-reported medications. Medication Details Route Status Patient Instructions Prescription Expires Prescription Number Last Dispense Date Ordering Provider Order Date Order Qty Source HYDROXYZINE HCL 25MG TAB TAKE ONE TABLET BY MOUTH AT BEDTIME NEEDED FOR 3 DAYS, THEN TAKE TWO TABLETS AT BEDTIME NEEDED FOR 27 DAYS FOR ANXIETY *MAY CAUSE DROWSINE SS* ORAL 11/08/2023 [id number] 3 Onur NUNN 2022 57 [facility] HYDROXYZINE HCL 50MG TAB TAKE ONE TABLET BY MOUTH AT BEDTIME NEEDED FOR ANXIETY *MAY CAUSE DROWSINE SS* ORAL DISCONT INUED BY PROVIDE R 11/20/2024 [id number] 4 Onur NUNN 2023 30 [facility] MIRTAZAPINE 15MG TAB TAKE ONE-HALF TABLET BY MOUTH AT BEDTIME NEEDED FOR SLEEP ORAL DISCONT INUED 09/04/2024 [id number] 3 Onur NUNN 2022 15 [facility] QUETIAPINE FUMARATE 50MG TAB TAKE ONE-HALF TO ONE TABLET BY MOUTH AT BEDTIME NEEDED FOR SLEEP ORAL ACTIVE 02/12/2025 [id number] 4 nOur NUNN 2023 30 [facility] Allergies, Adverse Reactions, Alerts Combined list of allergies from Department of [facility] and Veterans Affairs facilities. It does not include entries that were removed or entered in error. Substance Category Reaction Severity Reaction type Status Date Reported Comments Source PENICILLIN Propensity to adverse reactions to drug (finding) active 9 [facility] SULFA DRUGS Propensity to adverse reactions to drug (finding) active 9 [facility] Immunizations Combined list of available immunizations from the Department of [facility] and Veterans Affairs facilities. Immunization Series Date Given Administered By Site Reaction Lot Number CVX Code Drug Hot Roll Laminator Status Comments Source COVID-19 ([employer]), MRNA, LNP-S, PF, HIEN-SUCROSE, 30 MCG/0.3 ML (AGES 12+ YEARS) 2023 JJ OLIVO RIGHT DELTO ID [id number] 309 complet [facility] INFLUENZA, SPLIT VIRUS, TRIVALENT, PF 2023 JITENDRA LE RIGHT DELTO ID [id number] 140 complet [facility] RSV, BIVALENT, PROTEIN SUBUNIT RSVPREF, DILUENT RECONSTITUTED , 0.5 ML, PF 2023 JITENDRA LE LEFT DELTO ID [id number] 305 complet [facility] COVID-19 ([employer]), MRNA, LNP-S, PF, HIEN-SUCROSE, 30 MCG/0.3 ML (AGES 12+ YEARS) 1 2022 JITENDRA LE LEFT DELTO ID [id number] 309 complet [facility] INFLUENZA, INJECTABLE, QUADRIVALENT, PRESERVATIVE FREE 2022 CURTIS EDDY RIGHT DELTO ID [id number] 150 complet [facility] N PNEUMOCOCCAL CONJUGATE PCV20, POLYSACCHARID E [id number] CONJUGATE, ADJUVANT, PF 2022 JITENDRA LE LEFT DELTO ID [id number] 216 complet [facility] INFLUENZA, INJECTABLE, QUADRIVALENT, PRESERVATIVE FREE 2021 150 complet [facility] INFLUENZA, INJECTABLE, QUADRIVALENT, PRESERVATIVE FREE 2020 150 complet ed [facility] INFLUENZA, INJECTABLE, QUADRIVALENT, PRESERVATIVE FREE 2019 150 complet ed [facility] TDAP 2018 115 complet ed Right Deltoid [facility] ZOSTER RECOMBINANT 1 2018 187 complet ed [facility] Results Combined list of recent chemistry, hematology and other laboratory results from Department of Defense and Veterans Affairs, ranging from 15 months to all on record, depending upon the facility. Order Name Results Value Reference Range Date Interpretation Specimen Comments Source MAGNESIUM MAGNESIUM [MASS/VOLU ME] IN SERUM OR PLASMA 1.9 mg/dL 1.6 - 2.6 11/22 Specimen Type: PLASMA Comment: No hemolysis noted. Ordering Provider: Leonardo RUBALCAVA Report Released Date/Time: Nov 22, 2024 04:59 PM Reporting Lab: [address] [address] Performing Lab: [address] [address] [facility] BASIC METABOLIC PANEL CREATININE [MASS/VOLU ME] IN SERUM OR PLASMA 0.32 mg/dL 0.6 - 1.1 11/22 L Specimen Type: PLASMA Comment: No hemolysis noted. Ordering Provider: Leonardo RUBALCAVA Report Released Date/Time: Nov 22, 2024 04:59 PM Reporting Lab: [facility] [address] [place] [phone] Performing Lab: [facility] [address] [place] [phone] [facility] BASIC METABOLIC PANEL UREA NITROGEN [MASS/VOLU ME] IN SERUM OR PLASMA 4.7 mg/dL 9.0 - 25.0 11/22 L Specimen Type: PLASMA Comment: No hemolysis noted. Ordering Provider: Leonardo RUBALCAVA Report Released Date/Time: Nov 22, 2024 04:59 PM Reporting Lab: [address] [address] Performing Lab: [facility] [address] [facility] [address] [facility] BASIC METABOLIC PANEL GLUCOSE [MASS/VOLU ME] IN SERUM OR PLASMA 110 mg/dL 72 - 99 11/22 H Specimen Type: PLASMA Comment: No hemolysis noted. Ordering Provider: Leonardo RUBALCAVA Report Released Date/Time: Nov 22, 2024 04:59 PM Reporting Lab: [address] [address] Performing Lab: [address] [address] [facility] BASIC METABOLIC PANEL SODIUM [MOLES/VOL UME] IN SERUM OR PLASMA 134 meq/L 136 - 145 11/22 L Specimen Type: PLASMA Comment: No hemolysis noted. Ordering Provider: Leonardo RUBALCAVA Report Released Date/Time: Nov 22, 2024 04:59 PM Reporting Lab: [facility] [address] [facility] [address] Performing Lab: [address] [address] [facility] BASIC METABOLIC PANEL POTASSIUM [MOLES/VOL UME] IN SERUM OR PLASMA 3.8 meq/L 3.5 - 5 11/22 Specimen Type: PLASMA Comment: No hemolysis noted. Ordering Provider: Leonardo RUBALCAVA Report Released Date/Time: Nov 22, 2024 04:59 PM Reporting Lab: [facility] [address] [place] [phone] Performing Lab: [address] [address] [facility] BASIC METABOLIC PANEL CHLORIDE [MOLES/VOL UME] IN SERUM OR PLASMA 103 meq/L 98 - 107 11/22 Specimen Type: PLASMA Comment: No hemolysis noted. Ordering Provider: Leonardo RUBALCAVA Report Released Date/Time: Nov 22, 2024 04:59 PM Reporting Lab: [facility] [address] [facility] [address] Performing Lab: [place] [address] [facility] [address] [facility] BASIC METABOLIC PANEL CARBON DIOXIDE, TOTAL [MOLES/VOL UME] IN SERUM OR PLASMA 22 meq/L 22 - 31 11/22 Specimen Type: PLASMA Comment: No hemolysis noted. Ordering Provider: Leonardo RUBALCAVA Report Released Date/Time: Nov 22, 2024 04:59 PM Reporting Lab: [place] [address] [facility] [address] Performing Lab: [address] [address] [facility] BASIC METABOLIC PANEL CALCIUM [MASS/VOLU ME] IN SERUM OR PLASMA 8.7 mg/dL 8.4 - 10.4 11/22 Specimen Type: PLASMA Comment: No hemolysis noted. Ordering Provider: Leonardo RUBALCAVA Report Released Date/Time: Nov 22, 2024 04:59 PM Reporting Lab: [place] [address] [facility] [address] Performing Lab: [place] [address] [facility] [address] [facility] BASIC METABOLIC PANEL GLOMERULAR FILTRATION RATE/1.73 SQ M.PREDICTE D [VOLUME RATE/AREA] IN SERUM, PLASMA OR BLOOD BY CREATININE -BASED FORMULA (CKD-EPI 2020) 118.0 60 11/22 Specimen Type: PLASMA Comment: No hemolysis noted. Ordering Provider: Leonardo RUBALCAVA Report Released Date/Time: Nov 22, 2024 04:59 PM Reporting Lab: [address] [address] Performing Lab: [place] [address] [facility] [address] [facility] PT/INR NEW (STL-MA) PROTHROMBI N TIME (PT) 11.6 s 9.4 - 12.5 11/22 Specimen Type: PLASMA No comment entered. Ordering Provider: Leonardo RUBALCAVA Report Released Date/Time: Nov 22, 2024 11:54 AM Reporting Lab: [address] [address] Performing Lab: [facility] [address] [place] [phone] [facility] PT/INR NEW ([facility]) INR IN PLATELET POOR PLASMA BY COAGULATIO N ASSAY 1.0 {INR} 11/22 Specimen Type: PLASMA No comment entered. Ordering Provider: Leonardo RUBALCAVA Report Released Date/Time: Nov 22, 2024 11:54 AM Reporting Lab: [address] [address] Performing Lab: [address] [address] [facility] HEP B CORE AB TOTAL. (STL) HEPATITIS B VIRUS CORE AB [PRESENCE] IN SERUM OR PLASMA BY IMMUNOASSA Y Nonreact marcos 11/22 Specimen Type: SERUM No comment entered. Ordering Provider: Leonardo RUBALCAVA Report Released Date/Time: Nov 22, 2024 11:54 AM Reporting Lab: [address] [address] Performing Lab: [address] [address] [facility] HEP B CORE IgM AB. (L-MA-P BQUEST) HEPATITIS B VIRUS CORE IGM AB [PRESENCE] IN SERUM OR PLASMA BY IMMUNOASSA Y Nonreact marcos 11/22 Specimen Type: SERUM No comment entered. Ordering Provider: Leonardo RUBALCAVA Report Released Date/Time: Nov 22, 2024 11:54 AM Reporting Lab: [address] [address] Performing Lab: [address] [address] [facility] HEP HB S Ag (A[place]RI[place]) (STL) HEPATITIS B VIRUS SURFACE AG [PRESENCE] IN SERUM OR PLASMA BY IMMUNOASSA Y Nonreact marcos 11/22 Specimen Type: SERUM No comment entered. Ordering Provider: Leonardo RUBALCAVA Report Released Date/Time: Nov 22, 2024 11:54 AM Reporting Lab: [place] [address] [facility] [address] Performing Lab: [address] [address] [facility] HEPATITIS B SURFACE AB PNL HEPATITIS B VIRUS SURFACE AB [PRESENCE] IN SERUM BY IMMUNOASSA Y Nonreact ivem[IU] /mL 11/22 Specimen Type: SERUM No comment entered. Ordering Provider: Leonardo RUBALCAVA Report Released Date/Time: Nov 22, 2024 11:54 AM Reporting Lab: [address] [address] Performing Lab: [address] [address] [facility] HEP C Ab HCV Ab (STL) HEPATITIS C VIRUS AB [PRESENCE] IN SERUM Nonreact marcos 11/22 Specimen Type: SERUM No comment entered. Ordering Provider: Leonardo RUBALCAVA Report Released Date/Time: Nov 22, 2024 11:54 AM Reporting Lab: [address] [address] Performing Lab: [address] [address] [facility] HEPATITIS A IGG AB (STL) HEPATITIS A VIRUS IGG AB [PRESENCE] IN SERUM BY IMMUNOASSA Y REACTIVE 11/22 Specimen Type: SERUM No comment entered. Ordering Provider: Leonardo RUBALCAVA Report Released Date/Time: Nov 22, 2024 11:54 AM Reporting Lab: [place] [address] [facility] [address] Performing Lab: [address] [address] [facility] ROSARIO Ab(IgM) (STL) HEPATITIS A VIRUS IGM AB [PRESENCE] IN SERUM Nonreact marcos 11/22 Specimen Type: SERUM No comment entered. Ordering Provider: Leonardo RUBALCAVA Report Released Date/Time: Nov 22, 2024 11:54 AM Reporting Lab: [facility] [address] [facility] [address] Performing Lab: [facility] [address] [facility] [address] [facility] Vital Signs Combined list of inpatient and outpatient Vital Signs from Department of Defense and Veterans Affairs, ranging from 12 months to all on record, depending upon the facility. Vital Sign Value Date Comments Source SYSTOLIC BLOOD PRESSURE 144 11/22/2024 05:24:32 [facility] DIASTOLIC BLOOD PRESSURE 74 11/22/2024 05:24:32 [facility] PULSE OXIMETRY 95 11/22/2024 05:24:32 [facility] WEIGHT 120.15 11/22/2024 05:24:32 [facility] BMI 22kg/m2 11/22/2024 05:24:32 [facility] PAIN 8 11/22/2024 05:24:32 [facility] TEMPERATURE 98.2 11/22/2024 05:24:32 [facility] PULSE 72 11/22/2024 05:24:32 [facility] RESPIRATION 18 11/22/2024 05:24:32 [facility] SYSTOLIC BLOOD PRESSURE 133 11/21/2024 10:17:01 [facility] DIASTOLIC BLOOD PRESSURE 70 11/21/2024 10:17:01 [facility] PULSE OXIMETRY 100 11/21/2024 10:17:01 [facility] WEIGHT 115 11/21/2024 10:17:01 [facility] BMI 21kg/m2 11/21/2024 10:17:01 [facility] PAIN 5 11/21/2024 10:17:01 [facility] TEMPERATURE 98.2 11/21/2024 10:17:01 [facility] PULSE 84 11/21/2024 10:17:01 [facility] RESPIRATION 20 11/21/2024 10:17:01 [facility] SYSTOLIC BLOOD PRESSURE 123 09/13/2024 11:06:35 [facility] DIASTOLIC BLOOD PRESSURE 65 09/13/2024 11:06:35 [facility] PULSE OXIMETRY 98 09/13/2024 11:06:35 [facility] WEIGHT 127.1 09/13/2024 11:06:35 [facility] BMI 23kg/m2 09/13/2024 11:06:35 [facility] PAIN 0 09/13/2024 11:06:35 [facility] TEMPERATURE 97.4 09/13/2024 11:06:35 [facility] PULSE 66 09/13/2024 11:06:35 [facility] RESPIRATION 16 09/13/2024 11:06:35 [facility] SYSTOLIC BLOOD PRESSURE 132 07/25/2024 10:43:47 [facility] DIASTOLIC BLOOD PRESSURE 66 07/25/2024 10:43:47 [facility] PULSE OXIMETRY 99 07/25/2024 10:43:47 [facility] WEIGHT 124.5 07/25/2024 10:43:47 [facility] BMI 23kg/m2 07/25/2024 10:43:47 [facility] PAIN 0 07/25/2024 10:43:47 [facility] TEMPERATURE 97.5 07/25/2024 10:43:47 [facility] PULSE 54 07/25/2024 10:43:47 [facility] RESPIRATION 18 07/25/2024 10:43:47 [facility] SYSTOLIC BLOOD PRESSURE 114 07/08/2024 09:39:34 [facility] DIASTOLIC BLOOD PRESSURE 69 07/08/2024 09:39:34 [facility] PULSE OXIMETRY 98 07/08/2024 09:39:34 [facility] PAIN 0 07/08/2024 09:39:34 [facility] TEMPERATURE 97.3 07/08/2024 09:39:34 [facility] PULSE 63 07/08/2024 09:39:34 [facility] RESPIRATION 16 07/08/2024 09:39:34 [facility] Encounters Combined list of: 1) Encounters from Department of [facility] Affairs facilities going back up to thelast 18 months. 2) Encounters from the Department of Defense facilities going back up to 280 months. Location Location Details Encounter Type Encounter Number Reason For Visit Attending Provider ADM Date DC Date Status Disposition Source [facility] Outpatient Encounter [id number] 07/26 [facility] OFFICE O/P EST MOD 30-39 MIN [id number] Diagnos is: ICD-10- CM G47.00 Insomni a, unspeci fied
SADANAJEMAL IV 07/26 [facility] N [facility] PSYTX W PT 30 MINUTES [id number] Diagnos is: ICD-10- CM G47.00 Insomni a, unspeci fied
GARCIA NASH C 07/26 [facility] OFF[facility] O/P EST MOD 30-39 MIN [id number] Diagnos is: ICD-10- CM F43.23 Adjustm ent disorde r with mixed anxiety and depress ed mood
HALIMA TORRES S 07/26 [facility] HC PRO PHONE CALL 5-10 MIN [id number] Diagnos is: ICD-10- CM G47.00 Insomni a, unspeci fied
EDI GONSALVES E 07/[address] [facility] Outpatient Encounter [id number] 08/[address] [facility] Outpatient Encounter [id number] JEMAL HAWKINS IV 08/[address] [facility] PSYTX W PT 30 MINUTES [id number] Diagnos is: ICD-10- CM G47.00 Insomni a, unspeci fied
GARCIA NASH C 08/07 [facility] Outpatient Encounter [id number] 08/08 [facility] Outpatient Encounter [id number] 08/09 [facility] [place]UNIZAT[place] ADMIN [id number] Diagnos is: ICD-10- CM Z23 Encount er for immuniz ation<b r/> JIM EDDY 08/10 [facility] ADMN SARSCOV2 VACC 1 DOSE [id number] Diagnos is: ICD-10- CM Z23 Encount er for immuniz ation<b r/> REYNichole EUGENE 08/22 [facility] OFF/OP CNSLTJ NEW/EST MOD 40 [id number] Diagnos is: ICD-10- CM I70.1 Atheros clerosi s of renal artery< br/> HUEY,R ALPH J 08/28 [facility] Outpatient Encounter [id number] 09/01 [facility] PSYCH DIAG EVAL W/MED SRVCS [id number] Diagnos is: ICD-10- CM G47.00 Insomni a, unspeci fied
TEJA NUNN 09/04 [facility] OFFICE O/P EST LOW 20-29 MIN [id number] Diagnos is: ICD-10- CM G47.00 Insomni a, unspeci fied
TEJA NUNN 10/09 [facility] OFFICE O/P EST MOD 30 MIN [id number] Diagnos is: ICD-10- CM G47.00 Insomni a, unspeci fied
TEJA NUNN 11/20 [facility] Outpatient Encounter [id number] Nichole LE 01/21 [facility] OFFICE O/P EST MOD 30 MIN [id number] Diagnos is: ICD-10- CM R22.1 Localiz ed swellin g, mass and lump, neck
SADANA,JEMAL IV 01/22 [facility] Outpatient Encounter [id number] 02/04 [facility] OFFICE O/P EST MOD 30 MIN [id number] Diagnos is: ICD-10- CM G47.00 Insomni a, unspeci fied
TEJA NUNN 02/11 [facility] Outpatient Encounter [id number] 02/12 [facility] Outpatient Encounter [id number] 03/13 [facility] Outpatient Encounter [id number] TEJA NUNN 05/06 [facility] Outpatient Encounter [id number] 05/06 [facility] Outpatient Encounter [id number] Diagnos is: ICD-10- CM R22.1 Localiz ed swellin g, mass and lump, neck
SERBAN,RAD U 05/06 [facility] Outpatient Encounter [id number] 05/07 [facility] HC PRO PHONE CALL 5-10 MIN [id number] Diagnos is: ICD-10- CM R89.9 Unsp abnorma l finding in specime ns from oth org/tis s
Phyllis MADERA NTASHLI Apodaca 06/03 [facility] Outpatient Encounter [id number] 06/05 [facility] Outpatient Encounter [id number] FANI PINEDO C 06/06 [facility] Outpatient Encounter [id number] 06/12 [facility] Outpatient Encounter [id number] 06/14 [facility] [place] [id number] Diagnos is: ICD-10- CM R49.0 Dysphon ia
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 Outpatient Encounter [id number] 07/25 [facility] Outpatient Encounter [id number] 07/25 [facility] O/P EST MOD 30 MIN 33480-6.65 [id number] 6 Diagnos is: ICD-10- CM F17.200 Nicotin e depende nce, unspeci fied, uncompl icated< br/> SADJEMAL TOM IV 07/25 [facility] Outpatient Encounter [id number] 07/25 [facility] Outpatient Encounter [id number] 4 07/30 [facility] ADMN SARSCOV2 VACC 1 DOSE [id number] 3 Diagnos is: ICD-10- CM Z23 Encount er for immuniz ation<b r/> DELIA OLIVO RA 08/29 [facility] O/P EST MOD 30 MIN 12020-1.65 [id number] 1 Diagnos is: ICD-10- CM Z12.4 Encount er for screeni ng for maligna nt neoplas m of cervix< br/> DAYAN DREW 09/13 [facility] Outpatient Encounter [id number] NESSA FRANK 09/20 [facility] Outpatient Encounter [id number] 10/07 [facility] O/P EST MOD 30 MIN 31087-3.65 [id number] 2 Diagnos is: ICD-10- CM R63.4 Abnorma l weight loss
JEMAL HAWKINS IV 11/21 [facility] Inpatient Encounter [id number] 2 GIULIANA PATRICIA Bing 11/21 [facility] EMERGENCY DEPT VISIT [facility] [id number] [id number] 0 Diagnos is: ICD-10- CM R63.4 Abnorma l weight loss
DAVIAN FERMIN ED 11/21 [facility] Inpatient Encounter [id number] [id number] 2 Admit Reason: FAILURE TO THRIVE< br/> ONEA,MED 11/21 [facility] Inpatient Encounter [id number] CINDY HELMS 11/21 [facility] Inpatient Encounter [id number] MEHUL ARIAS 11/21 [facility] Inpatient Encounter [id number] O'JULIO CÉSAR GODINEZ BEATRICE R 11/21 [facility] Inpatient Encounter [id number] O'GRETCHENTEN BEATRICE R 11/21 [facility] Inpatient Encounter [id number] O'GRETCHENTEN BEATRICE R 11/21 [facility] Inpatient Encounter [id number] O'GRETCHENJULIO CÉSAR WOOD BEATRICE R 11/22 [facility] Inpatient Encounter [id number] MEHUL ARIAS 11/22 [facility] Inpatient Encounter [id number] JULIO CÉSAR MADSEN 11/22 [facility] Inpatient Encounter [id number] MEHUL ARIAS 11/22 [facility] 1ST HOSP IP/OBS HIGH 75 [id number] Diagnos is: ICD-10- CM B96.81 Helicob acter pylori as the cause of disease s classd elswhr< br/> TRISTON NEWBERRY 11/22 [facility] Inpatient Encounter [id number] LM GOLDBERG 11/[address] [facility] Inpatient Encounter [id number] RIVERA SANCHEZ 11/22 [facility] Inpatient Encounter [id number] RIVERA SNACHEZ 11/22 [facility] IP/OBS CNSLTJ NEW/EST MOD 60 [id number] Diagnos is: ICD-10- CM R11.2 Nausea with vomitin g, unspeci fied
TRISTON RUIZ E 11/22 [facility] Inpatient Encounter [id number] 3 JESUJULIO CÉSAR WOOD BEATRICE Mihaela 11/22 [facility] Social History Combined list of available smoking, tobacco, and other social history from Department of Defense and Veterans Affairs facilities. Social History Type Response Date Comment Sourc e Tobacco smoking status NHIS ORYX ADMIT TOBACCO SCREEN YES 11/21/2024 [facility] History of tobacco use ORYX DAILY TOBACC O ANIMAL CARE GIVER RECEIVED 11/21/2024 [facility] History of tobacco use FL-TOBACCO USE WI 30 MIN OF WAKEUP 07/25/2024 [facility] History of tobacco use VA-TOBACCO USER E VERY DAY 07/26/2023 [facility] History of tobacco use VA-TOBACCO USER E VERY DAY 07/21/2022 [facility] History of tobacco use VA-TOBACCO USE CO UNSEL NO 01/13/2020 [facility] History of tobacco use TOBACCO OFFERED P T MEDS (PROVIDER) 02/05/2019 [facility] History of tobacco use VA-TOBACCO USER E VERY DAY 12/18/2018 [facility] Plan of Care List of future care activities from Department [facility] facilities. Additional future care activities may be listed in the Assessment and Plan section. Date/Time Care Activity Care Activity Detail Facili ty 11/21/2024 Procedure Order CP EKG STL CP EK G - STL Proc Office Correspondent's Choice [facility] 11/21/2024 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 MRSA SURVL NARES DNA NARES [facility] 11/21/2024 Consult Order Physical Therapy PT INPT DEEPTI Cons Bedside [facility] 11/22/2024 Procedure Order CP EKG STL CP EK G - STL Proc Bedside [facility] 11/22/2024 Laboratory - Microbi ology Order CRYPTOSPORIDIUM (STL) STOOL FECES [facility] 11/22/2024 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 GI-CALPROTECTIN, STOOL STOOL FECES [facility] 11/22/2024 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 GIARDIA LAMBLIA ANTIGEN STOOL FECES [facility] 11/22/2024 Laboratory - Microbi ology Order C&S STOOL STOOL FECES [facility] 11/22/2024 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 ACETAMINOPHEN (STL-MA ) GOLD/RED SST SERUM [facility] 11/22/2024 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 SALICYLATE (STL) GREEN LI/HEP BLD/PLAS PLASMA [facility] 11/22/2024 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 CARNITINE GOLD/RED SST SERUM [facility] 11/22/2024 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 VITAMIN B1 LAV-LIGHT PROTECT BLOOD [facility] 11/22/2024 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 ZINC BLOOD [facility] 11/22/2024 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 TTG-IGG (STL-MA) RED/NO-GEL SERUM [facility] 11/22/2024 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 PHOSPHOROUS GREEN LI/HEP BLD/PLAS PLASMA [facility] 11/23/2024 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 CBC BLOOD [facility] 11/23/2024 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 COMPREHENSIVE METABOLIC PANEL GREEN LI/HEP BLD/PLAS PLASMA [facility] 11/23/2024 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
--- OUTSIDE RECORDS SUMMARY | 2024-11-22 22:22 | XMS_ITS | Encounter Summary ---
Author Name [facility] [place] Organization [facility] [place] Address [address] [place] [address] Care Team Providers Care State Game Warden Name Role Phone JACKIE HAWKINS Primary Care [...] Noble's Name Patient's Relationship to Policy Noble [facility] Mar 12, 2010 Jun 18, 2027 [facility] [id number] [phone] ANNE HUNT PATIENT [facility] Mar 12, 2010 Jun 18, 2027 [facility] [phone] ANNE HUNT PATIENT Selected Encounter This section includes the information on record at [place] for the Encounter. Date/Time Encounter Type Encounter Description Reason Pro vider Source Feb 13, 2024 10:45 AM Out[facility] En[facility] Template Text not used by [place] Plan of Treatment: Future Appointments (+ 6 [...] 20 appointments. The data comes from all [place] treatment facilities. Appointment Date/Time Appointment Type Appointme nt Facility Name Mar 09, 2024 11:30 AM AMBULATORY - MEDICINE [facility] Apr 18, 2024 10:00 AM AMBULATORY - NONE . [facility] May 06, 2024 08:30 AM AMBULATORY - PSYCHIATRY [facility] Jun 05, 2024 10:30 AM AMBULATORY - MEDICINE [facility] Jul 08, 2024 09:45 AM AMBULATORY - REHAB MEDICIN E [facility] Jul 08, 2024 10:00 AM AMBULATORY - SURGERY [facility] Nichole REDDY [facility] Jul 25, 2024 10:30 AM AMBULATORY - MEDICINE [facility] Social History: Smoking Status (Most current) and Tobacco Use (All prior to encounter date) This section includes the most current, and the historical, smoking and tobacco- related health factors from the [place] facility where the Encounter took place. Current Smoking Status This section includes the most current smoking, or tobacco-related health factor, from the [place] facility where the Encounter took place. Date/Time Current Smoking Status Comment Alexandra ity Jul 26, 2023 10:00 AM VA-TOBACCO USER EVERY DAY [facility] Tobacco Use History This section includes a history of the smoking, or tobacco-related health factors, that were collected on or before the date of the Encounter. The data comes from the [place] facility where the Encounter took place. 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 [facility] Jul 26, 2023 10:00 AM VA-TOBACCO USE MED NO [facility] Jul 26, 2023 10:00 AM VA-TOBACCO USE WI 30 MIN OF WAKEUP [facility] Jul 26, 2023 10:00 AM VA-TOBACCO USER EVERY DAY [facility] Jul 21, 2022 11:00 AM VA-TOBACCO USE 30 YEARS OR MORE [facility] Jul 21, 2022 11:00 AM VA-TOBACCO USE ADVICE [facility] Jul 21, 2022 11:00 AM VA-TOBACCO 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 [facility] Jul 21, 2022 11:00 AM VA-TOBACCO USE MED NOTIFY PROVIDER [facility] Jul 21, 2022 11:00 AM VA-TOBACCO USE MED YES [facility] Jul 21, 2022 11:00 AM VA-TOBACCO USE WI 30 MIN OF WAKEUP [facility] Jul 21, 2022 11:00 AM VA-TOBACCO USER EVERY DAY [facility] Jan 13, 2020 10:39 AM VA-TOBACCO USE 30 YEARS OR MORE [facility] Jan 13, 2020 10:39 AM VA-TOBACCO USE ADVICE [facility] Jan 13, 2020 10:39 AM VA-TOBACCO USE 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 AUTHOR NO [facility] Jan 13, 2020 10:39 AM VA-TOBACCO USE MED YES [facility] Jan 13, 2020 10:39 AM VA-TOBACCO USE WI 30 MIN OF WAKEUP [facility] Jan 13, 2020 10:39 AM VA-TOBACCO USER EVERY DAY [facility] Feb 05, 2019 10:32 AM TOBACCO OFFERED PT MEDS (PROVIDER) [facility] Dec 18, 2018 11:00 AM TOBACCO MEDS OFFER ED BUT DECLINED [facility] Dec 18, 2018 11:00 AM VA-TOBACCO USE > 1 5 LESS THAN 30 YEARS [facility] Dec 18, 2018 11:00 AM VA-TOBACCO USE ADVICE [facility] Dec 18, 2018 11:00 AM VA-TOBACCO USE GAME AUTHOR NO [facility] Dec 18, 2018 11:00 AM VA-TOBACCO USE MED NOTIFY PROVIDER [facility] Dec 18, 2018 11:00 AM VA-TOBACCO USE WI 30 MIN OF WAKEUP [facility] Dec 18, 2018 11:00 AM VA-TOBACCO USER EVERY DAY [facility] Radiology Reports: +/- 30 days of [...] the Encounter. The data comes from all [place] treatment facilities. Date/Time Radiology Report Provider Source Mar 09, 2024 10:39 AM US THYROID (NECK SOFT-TISSUE): HUNT,SUMMER ABBY [id number] -[id number] F Exm Date: MAR 09, 2024@10:39 Req Phys: JACKIE HAWKINS Loc: [facility]-PACT C9 PCP (Req'g Loc) Img Loc: [facility]-ULTRASOUND [facility] Service: [address] [address] (Case [id number] COMPLETE) US THYROID (NECK SOFT-TISSUE) (US Detailed) CPT:74625 Reason for Study: lymph node ? :Left behind angle of mandible Clinical History: Report Status: Verified Date Reported: MAR 11, 2024 Date Verified: MAR 11, 2024 Nursing Program Coordinator E-Sig:/ES/ZHANG CARMONA Report: CASE #: [id number] DATE:03/11/2024 7:56 AM CLINICAL HISTORY:lymph node ? [...] considered. Dictated by Kim Mcdonnell M.D. (Diagnostic Aed Trainer). I, Zhang Carmoan, have reviewed the images and report and concur with these findings. Primary Interpreting Staff: ZHANG CARMONA MD (Nursing Program Coordinator) Primary Interpreting Resident: Kim Mcdonnell MD, Resident Physician /ZHANG JOHNSTON [facility] Encounter Notes: All associated encounter notes This section contains the clinical notes associated to the Encounter. Date/Time Encounter Note(s) Provider Source Feb 13, 2024 10:46 AM ADMINISTRATIVE NOT E: LOCAL TITLE: SCHEDULING NOTE STL STANDARD TITLE: ADMINISTRATIVE NOTE DATE OF NOTE: FEB 13, 2024@10:46 ENTRY DATE: FEB 13, 2024@10:46:48 AUTHOR: STEPHON RODRIGUEZ EXP COSIGNER: URGENCY: STATUS: COMPLETED Minimum Scheduling attempts to contact the have been made. RTC/Appt/Consult request will be discontinued after 14 days. Clinic: -[facility] KAYLA NUNN [facility] BR[facility]ON: 05/06/24 First Call to [facility] - unsuccessful schedulin02/13/24 Unable to contact [place], letter sent: 02/13/24 ADDITIONAL RESULTS FROM SCHEDULING ATTEMPTS: /anastacio/ STEPHON RODRIGUEZ Advance History Faculty Member Signed: 02/13/2024 10:47 STEPHON RODRIGUEZ [facility] Feb 13, 2024 10:45 AM PHYSICIAN LETTERS: LOCAL TITLE: NO CONTACT LETTER STL STANDARD TITLE: PHYSICIAN LETTERS DATE OF NOTE: FEB 13, 2024@10:45 ENTRY DATE: FEB 13, 2024@10:46:16 AUTHOR: STEPHON RODRIGUEZ EXP COSIGNER: URGENCY: STATUS: COMPLETED [facility] [address] [place] [address] FEB 13, 2024 SUMMER HUNT [address], [place] [address] Dear Summer Hunt, Thank you for choosing the [facility] as your primary choice for health care. As a partner in your health care, we are attempting to contact you because we have been unsuccessful in reaching you by phone to schedule your clinic appointment. Please call us at [phone], extension [phone] to speak to us regarding making an appointment in the Mental Health clinic. Your good health is important to us. Please contact us within 2 weeks from the date of this letter. If we do not hear from you, we will notify your referring provider and a new referral will be required to schedule an appointment. IMPORTANT: Due to COVID-19 we have greatly expanded our telehealth options, please contact the clinic to inquire about scheduling. Sincerely, STEPHON RODRIGUEZ Advance History Faculty Member SUMMER HUNT MARIE LEOLA G [facility]
--- OUTSIDE RECORDS SUMMARY | 2024-11-22 22:23 | XMS_ITS | Encounter Summary ---
Author Name [facility] [place] Organization [facility] [place] Address [address] [place] [address] Care Team Providers Care Shotweld Operator Name Role Phone ROSS PATRICK Primary Care Provider Unavailabl e Insurance Providers: [...] Name Patient's Relationship to Policy Noble [facility] Mar 12, 2010 Jun 18, 2027 [facility] [id number] ANNE HUNT PATIENT [facility] Mar 12, 2010 Jun 18, 2027 [facility] [id number] ANNE HUNT PATIENT Selected Encounter This section includes the information on record at [place] for the Encounter. Date/Time Encounter Type Encounter Description Reason Pro vider Source Jun 12, 2024 08:13 AM Outpatient Encounter OTOLARYNGOLOGY/ENT IHE Encounter Template Text not used by [place] Plan of Treatment: Future Appointments (+ 6 [...] 20 appointments. The data comes from all [facility]. Appointment Date/Time Appointment Type Appointme nt Facility Name Jul 08, 2024 09:45 AM AMBULATORY - REHAB MEDICIN E [facility] Jul 08, 2024 10:00 AM AMBULATORY - SURGERY [facility] Jul 25, 2024 10:30 AM AMBULATORY - MEDICINE [facility] Aug 29, 2024 10:32 AM AMBULATORY - NONE . [facility] Sep 13, 2024 11:00 AM AMBULATORY - MEDICINE [facility] Nov 21, 2024 10:00 AM AMBULATORY - MEDICINE [facility] Nov 21, 2024 10:30 AM AMBULATORY - MEDICINE [facility] Active, Pending, and Scheduled Orders This section includes a listing of several types of active, pending, and scheduled orders, including clinic medications orders, diagnostic test orders, procedure orders and consult orders; where the start date of the order is 45 days before the date of the Encounter or 45 days after the date of theEncounter. The data comes from all [facility]. Test Date/Time Test Type Test Details Facility Name Jul 25, 2024 12:00 AM Laboratory - Chemistry Order LIPID PANEL (STL) GREEN LI/HEP BLD/PLAS [facility] Jul 25, 2024 12:00 AM Laboratory - Chemistry Order HGA1C BLOOD SP [facility] Jul 25, 2024 12:00 AM Laboratory - Chemistry Order TSH (MA-PB) GOLD/RED SST SERUM SP [facility] Jul 25, 2024 12:00 AM Laboratory - Chemistry Order COMPREHENSIVE METABOLIC PANEL GREEN LI/HEP BLD/PLAS [facility] Social History: Smoking Status (Most current) and Tobacco Use (All prior to encounter date) This section includes the most current, and the historical, smoking and tobacco- related health factors from the [place] facility where the Encounter took place. Current Smoking Status This section includes the most current smoking, or tobacco-related health factor, from the [place] facility where the Encounter took place. Date/Time Current Smoking Status Comment Facil ity Jul 26, 2023 10:00 AM VA-TOBACCO USER EVERY DAY [facility] Tobacco Use History This section includes a history of the smoking, or tobacco-related health factors, that were collected on or before the date of the Encounter. The data comes from the [place] facility where the Encounter took place. Date/Time Smoking Status/Tobacco Use Comment F acility Jul 26, 2023 10:00 AM VA-TOBACCO USE ADVICE [facility] Jul 26, 2023 10:00 AM VA-TOBACCO USE ACTUARIAL ASSOCIATE NO [facility] Jul 26, 2023 10:00 AM VA-TOBACCO USE MED NO [facility] Jul 26, 2023 10:00 AM VA-TOBACCO USE WI 30 MIN OF WAKEUP [facility] Jul 26, 2023 10:00 AM VA-TOBACCO USER EVERY DAY [facility] Jul 21, 2022 11:00 AM VA-TOBACCO USE 30 YEARS OR MORE [facility] Jul 21, 2022 11:00 AM VA-TOBACCO USE ADVICE [facility] Jul 21, 2022 11:00 AM VA-TOBACCO USE ACTUARIAL ASSOCIATE NO [facility] Jul 21, 2022 11:00 AM VA-TOBACCO USE MED NOTIFY PROVIDER [facility] Jul 21, 2022 11:00 AM VA-TOBACCO USE MED YES [facility] Jul 21, 2022 11:00 AM VA-TOBACCO USE WI 30 MIN OF WAKEUP [facility] Jul 21, 2022 11:00 AM VA-TOBACCO USER EVERY DAY [facility] Jan 13, 2020 10:39 AM VA-TOBACCO USE 30 YEARS OR MORE [facility] Jan 13, 2020 10:39 AM VA-TOBACCO USE ADVICE [facility] Jan 13, 2020 10:39 AM VA-TOBACCO USE ACTUARIAL ASSOCIATE NO [facility] Jan 13, 2020 10:39 AM VA-TOBACCO USE MED YES [facility] Jan 13, 2020 10:39 AM VA-TOBACCO USE WI 30 MIN OF WAKEUP [facility] Jan 13, 2020 10:39 AM VA-TOBACCO USER EVERY DAY [facility] Feb 05, 2019 10:32 AM TOBACCO OFFERED PT MEDS (PROVIDER) [facility] Dec 18, 2018 11:00 AM TOBACCO MEDS OFFER ED BUT DECLINED [facility] Dec 18, 2018 11:00 AM VA-TOBACCO USE > 1 5 LESS THAN 30 YEARS [facility] Dec 18, 2018 11:00 AM VA-TOBACCO USE ADVICE [facility] Dec 18, 2018 11:00 AM VA-TOBACCO USE ACTUARIAL ASSOCIATE NO [facility] Dec 18, 2018 11:00 AM VA-TOBACCO USE MED NOTIFY PROVIDER [facility] Dec 18, 2018 11:00 AM VA-TOBACCO USE WI 30 MIN OF WAKEUP [facility] Dec 18, 2018 11:00 AM VA-TOBACCO USER EVERY DAY [facility] Radiology Reports: +/- 30 days of the [...] the Encounter. The data comes from all [place] treatment facilities. Date/Time Radiology Report Provider Source Jun 05, 2024 10:14 AM FNA BIOPSY INCLUDI NG US GUIDANCE, FIRST LESION: SUMMER HUNT ABBY [id number] -1960 F Exm Date: JUN 05, 2024@10:14 Req Phys: PATRICK JOHNSON Loc: DEEPTI-IR E-CONSULT (Req'g Loc) Img Loc: DEEPTI-ANGIO/INTERVENTIONAL Service: Unknown [facility] [address] [facility] [place] [address] (Case [id number] COMPLETE) FNA BIOPSY INCLUDING US GUIDANCE,(ANI Detailed) CPT:93902 Reason for Study: FNA left neck mass Clinical History: Report Status: Verified Date Reported: JUN 05, 2024 Date Verified: JUN 05, 2024 Cotton Picker E-Sig:/ANASTACIO/HILARIO DALTON M.D. Report: \H\History: \N\Indeterminate left neck nodule within or just adjacent to inferior aspect of parotid gland\H\ \N\ \H\Operators: \N\1. Attending - Hilario Dalton MD 2. Resident - None \H\Anesthesia:\N\ 1. Local - 10 mL of 1% Lidocaine \H\Procedure:\N\ 1. Ultrasound-guided fine needle aspiration (FNA) of a left parotid nodule \H\Procedure in detail: \N\The procedure, risks, and possible complications were explained to the patient in detail, and informed consent was obtained. The patient was placed in a supine position on the procedure table. A limited multiplanar ultrasound examination of the left neck was performed which demonstrated an irregular hypoechoic nodule in the inferior aspect of the left parotid gland. The region of interest was prepped and draped in sterile fashion. Pre-procedure timeout was performed. Local anesthesia was provided with 1% Lidocaine. Fine needle aspiration was performed using 25-gauge needles under ultrasound guidance. 2 total passes were made and the needle entries were documented. The samples were reviewed by the on-site cytopathologist and deemed adequate. The patient tolerated the procedure well and was discharged in stable condition. There were no immediate complications associated with the procedure. The pathology report is pending at the time of this dictation. Impression: \H\N\H\Impression:\N\ Ultrasound-guided fine needle aspiration of an inferior left parotid nodule.? I, Dr. Dalton, was present and performed/supervised the entire procedure. Primary Interpreting Staff: HILARIO DALTON M.D., Physician, Vascular & Interventional Rad ([place]) /HILARIO RENTERIA [facility] Pathology Reports: +/- 30 days of the encounter Pathology Reports For cases when an order for pathology services may have been completed prior to the date of the Encounter, the report list includes the Pathology Reports that were completed up to 30 days before dateof the Encounter. For cases when an order for pathology services may have been completed after the date of the Encounter, the report list also includes the Pathology Reports that were completed up to30 days after date of the Encounter. The data comes from all [place] treatment facilities. Date/Time Pathology Report Provider Source Jun 06, 2024 01:03 PM LR CYTOPATHOLOGY R EPORT: LOCAL TITLE: LR CYTOPATHOLOGY REPORT STANDARD TITLE: PATHOLOGY PROCEDURE NOTE DATE OF NOTE: JUN 06, 2024@13:03:10 ENTRY DATE: JUN 06, 2024@13:03:10 AUTHOR: ARNOL PINEDO EXP COSIGNER: URGENCY: STATUS: COMPLETED $APHDR - - - - - - - - - - - - - - - - - - - - - - - - - - - - - - - - - - - - - - - - MEDICAL RECORD CYTOPATHOLOGY - - - - - - - - - - - - - - - - - - - - - - - - - - - - - - - - - - - - - - - - PATHOLOGY REPORT Accession No. CY [id number] - - - - - - - - - - - - - - - - - - - - - - - - - - - - - - - - - - - - - - - - $TEXT Submitted by: Mihaela JOHNSON Date obtained: Jun 05, 2024 - - - - - - - - - - - - - - - - - - - - - - - - - - - - - - - - - - - - - - - - Specimen (Received Jun 05, 2024): LEFT INFERIOR PAROTID FNA - - - - - - - - - - - - - - - - - - - - - - - - - - - - - - - - - - - - - - - - BRIEF CLINICAL HISTORY: 63 Y/O WITH LEFT INFERIOR PAROTID MASS, ABNORMAL FINDINGS ON IMAGING. - - - - - - - - - - - - - - - - - - - - - - - - - - - - - - - - - - - - - - - - PREOPERATIVE DIAGNOSIS: - - - - - - - - - - - - - - - - - - - - - - - - - - - - - - - - - - - - - - - - OPERATIVE FINDINGS: - - - - - - - - - - - - - - - - - - - - - - - - - - - - - - - - - - - - - - - - POSTOPERATIVE DIAGNOSIS: Surgeon/physician: HILARIO DALTON MD =-=-=-=-=-=-=-=-=-=-=-=-=- =-=-=-=-=-=-=-=-=-=-=-=-=- =-=-=-=-=-=-=-=-=-=-=-=-=- = - - - - - - - - - - - - - - - - - - - - - - - - - - - - - - - - - - - - - - - - PATHOLOGY REPORT Accession No. CY [id number] - - - - - - - - - - - - - - - - - - - - - - - - - - - - - - - - - - - - - - - - DESCRIPTION LEFT INFERIOR PAROTID MASS FINE NEEDLE ASPIRATION ON SUMMER HUNT ABBY [id number]. 2 PASSES PERFORMED WITH 2 PAP STAINED AND 2 DIFF QUIK DIRECT SMEARS. 2 PAP STAINED CYTOSPINS PREPARED. PAROTID, LEFT INFERIOR, US-GUIDED FINE NEEDLE ASPIRATION RAPID ONSITE EVALUATION: Evaluation Episode 1: Pass 1: Adequate for Evaluation Pass 2: Adequate for Evaluation DIAGNOSIS Review of the direct smears shows a background of peripheral blood with scattered epithelial, myoepithelial, and stromal cells in a chondromyxoid matrix. The cytospin slide shows scant material with similar features. 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 Clinical and radiologic correlation is required. DIAGNOSIS: PAROTID GLAND, LEFT INFERIOR, CYTOLOGY, ULTRASOUND-GUIDED FINE NEEDLE ASPIRATION: - CONSISTENT WITH PLEOMORPHIC ADENOMA - SEE DESCRIPTION /es/ ARNOL PINEDO PATHOLOGIST Signed Jun 06, 2024@13:03 Performing Laboratory: Cytology Report Performed By: [address]# [id number] [address] [address] $FTR - - - - - - - - - - - - - - - - - - - - - - - - - - - - - - - - - - - - - - - - (End of report) ARNOL PINEDO MD nw Date Jun 06, 2024 - - - - - - - - - - - - - - - - - - - - - - - - - - - - - - - - - - - - - - - - SUMMER HUNT STANDARD FORM 515 ID:[id number] SEX:F :1960 AGE: 63 LOC:APFEE PCP: Patrick Johnson MD /anastacio/ ARNOL PINEDO PATHOLOGIST Signed: 06/06/2024 13:03 ARNOL PINEDO [facility] Encounter Notes: All associated encounter notes This section contains the clinical notes associated to the Encounter. Date/Time Encounter Note(s) Provider Source Jun 12, 2024 08:13 AM ADMINISTRATIVE NOT E: LOCAL TITLE: ADMINISTRATIVE STL STANDARD TITLE: ADMINISTRATIVE NOTE DATE OF NOTE: JUN 12, 2024@08:13 ENTRY DATE: JUN 12, 2024@08:17:55 AUTHOR: ELOINA VALENZUELA EXP COSIGNER: URGENCY: STATUS: COMPLETED SUBJECT: no contact letter Jun 12, 2024 Summer Hunt [address] [place] [address] Dear Summer Hunt, You have been referred for a consultation to the ENT LESION/MASS OUTPT [facility] at the [facility] system. We would like to schedule a consult appointment with you. If we do not hear from you by Jun 26, 2024, we will assume that you are not interested in having the consultation and the referral will be discontinued. Please call our office at [phone] between 8 am and 4 pm Monday through Monday. If you received this letter after you have spoken to us, please disregard this letter. Sincerely yours, /anastacio/ ELOINA VALENZUELA [employer]PER[employer] Signed: 06/12/2024 08:18 ELOINA VALENZUELA [facility]
--- OUTSIDE RECORDS SUMMARY | 2024-11-22 22:23 | XMS_ITS | Encounter Summary ---
Author Name [facility] [place] Address [address] [place] [address] Care Team Providers Care Dock Supervisor Name Role Phone JACKIE JOHNSON Primary Care Provider Unavailabl e Insurance [...] Noble's Name Patient's Relationship to Policy Noble [facility] Mar 12, 2010 Jun 18, 2027 [facility] [id number] [phone] ANNE JIMENEZ PATIENT OPTUM RX [facility] Mar 12, 2010 Jun 18, 2027 [facility] [id number] [phone] ANNE JIMENEZ PATIENT Selected Encounter This section includes the information on record at [place] for the Encounter. Date/Time Encounter Type Encounter Description Reason Provider Source Aug 29, 2024 10:32 AM ADMN SARSCOV2 VACC 1 DOSE PRIMARY CARE/MEDICINE ICD-10-CM Z23 Encounter for immunization JJ REDMAN Encounter Template Text not used by [place] Assessments - Encounter Diagnoses This section includes the primary and secondary diagnoses documented for the Encounter. Date/Time Primary/Secondary Diagnosis Diagnosis Name Provider Source Aug 29, 2024 11:25 AM PRIMARY Encounter for immunization JJ REDMAN [facility] Plan of Treatment: Future Appointments (+ 6 months) and Future Tests (+/- 45 days) The Plan of Treatment section includes future care activities for the [facility] [place] [facility] This section includes future appointments and future orders which are active, pending or scheduled. Future Appointments This section includes appointments that were scheduled to occur 6 months from the date of the Encounter, up to a maximum of 20 appointments. The data comes from all [facility]. Appointment Date/Time Appointment Type Appointme nt Facility Name Sep 13, 2024 11:00 AM AMBULATORY - MEDICINE [facility] Nov 21, 2024 10:00 AM AMBULATORY MEDICINE [facility] Nov 21, 2024 10:30 AM [facility] Active, Pending, and Scheduled Orders This section includes a listing of several types of active, pending, and scheduled orders, including clinic medications orders, diagnostic test orders, procedure orders and consult orders; where the start date of the order is 45 days before the date of the Encounter or 45 days after the date of theEncounter. The data comes from all [facility]. Test Date/Time Test Type Test Details Facility Name Jul 25, 2024 12:00 AM Laboratory - Chemistry Order LIPID PANEL (STL) GREEN LI/HEP BLD/PLAS PLASMA [facility] Jul 25, 2024 12:00 AM Laboratory - Chemistry Order TSH (MA-PB) GOLD/RED SST SERUM SP [facility] Jul 25, 2024 12:00 AM Laboratory - Chemistry Order HGA1C BLOOD [facility] Jul 25, 2024 12:00 AM Laboratory - Chemistry Order COMPREHENSIVE METABOLIC PANEL GREEN LI/HEP BLD/PLAS PLASMA [facility] Lab Results: +/- 30 days of the encounter This section includes the Chemistry and Hematology Lab Results on record with [place] for the patient. Radiology Reports and Pathology Reports are provided separately, in subsequent sections. Lab Results This section contains the Chemistry/Hematology Results that were resulted 30 days before or 30 daysafter the date of the Encounter. Date/Time Source Result Type Result - Unit Interpretation Reference Range Comment Aug 27, 2024 12:00 PM [facility] OCCULT BLOOD FIT X1 SCREEN Specimen Type: FECES No comment entered. Ordering Provider: JACKIE JOHNSON Report Released Date/Time: Jul 25, 2024 11:20 AM Reporting Lab: [facility] [address] [address] Performing Lab: [facility] [address] [address] OCCULT BLOOD (FIT) #1 OF 1 Negative Negative Immunizations: All administered on the encounter date This section contains immunizations associated to the Encounter. Immunization Series Date Issued Reaction Comments COVID-19 (PFIZER), MRNA, LNP -S, PF, HIEN-SUCROSE, 30 MCG/0.3 ML (AGES 12+ YEARS) Aug 29, 2024 Social History: Smoking Status (Most current) and Tobacco Use (All prior to encounter date) This section includes the most current, and the historical, smoking and tobacco- related health factors from the [place] facility where the Encounter took place. Current Smoking Status This section includes the most current smoking, or tobacco-related health factor, from the [place] facility where the Encounter took place. Date/Time Current Smoking Status Comment Alexandra ity Jul 25, 2024 10:30 AM VA-TOBACCO USER EVERY DAY [facility] Tobacco Use History This section includes a history of the smoking, or tobacco-related health factors, that were collected on or before the date of the Encounter. The data comes from the [place] facility where the Encounter took place. Date/Time Smoking Status/Tobacco Use Comment F acility Jul 25, 2024 10:30 AM VA-TOBACCO USE ADVICE [facility] Jul 25, 2024 10:30 AM VA-TOBACCO USE SPA TECHNICIAN NO [facility] Jul 25, 2024 10:30 AM VA-TOBACCO USE MED NO [facility] Jul 25, 2024 10:30 AM VA-TOBACCO USE WI 30 MIN OF WAKEUP [facility] Jul 25, 2024 10:30 AM VA-TOBACCO USER EVERY DAY [facility] Jul 26, 2023 10:00 AM VA-TOBACCO USE 30 YEARS OR MORE [facility] Jul 26, 2023 10:00 AM VA-TOBACCO USE ADVICE [facility] Jul 26, 2023 10:00 AM VA-TOBACCO USE SPA TECHNICIAN NO [facility] Jul 26, 2023 10:00 AM VA-TOBACCO USE MED NO [facility] Jul 26, 2023 10:00 AM VA-TOBACCO USE WI 30 MIN OF WAKEUP [facility] Jul 26, 2023 10:00 AM VA-TOBACCO USER EVERY DAY [facility] Jul 21, 2022 11:00 AM VA-TOBACCO USE 30 YEARS OR MORE [facility] Jul 21, 2022 11:00 AM VA-TOBACCO USE ADVICE [facility] Jul 21, 2022 11:00 AM VA-TOBACCO USE SPA TECHNICIAN NO [facility] Jul 21, 2022 11:00 AM VA-TOBACCO USE MED NOTIFY PROVIDER [facility] Jul 21, 2022 11:00 AM VA-TOBACCO USE MED YES [facility] Jul 21, 2022 11:00 AM VA-TOBACCO USE WI 30 MIN OF WAKEUP [facility] Jul 21, 2022 11:00 AM VA-TOBACCO USER EVERY DAY [facility] Jan 13, 2020 10:39 AM VA-TOBACCO USE 30 YEARS OR MORE [facility] Jan 13, 2020 10:39 AM VA-TOBACCO USE ADVICE [facility] Jan 13, 2020 10:39 AM VA-TOBACCO USE SPA TECHNICIAN NO [facility] Jan 13, 2020 10:39 AM VA-TOBACCO USE MED YES [facility] Jan 13, 2020 10:39 AM VA-TOBACCO USE WI 30 MIN OF WAKEUP [facility] Jan 13, 2020 10:39 AM VA-TOBACCO USER EVERY DAY [facility] Feb 05, 2019 10:32 AM TOBACCO OFFERED PT MEDS (PROVIDER) [facility] Dec 18, 2018 11:00 AM TOBACCO MEDS OFFER ED BUT DECLINED [facility] Dec 18, 2018 11:00 AM VA-TOBACCO USE > 1 5 LESS THAN 30 YEARS [facility] Dec 18, 2018 11:00 AM VA-TOBACCO USE ADVICE [facility] Dec 18, 2018 11:00 AM VA-TOBACCO USE SPA TECHNICIAN NO [facility] Dec 18, 2018 11:00 AM VA-TOBACCO USE MED NOTIFY PROVIDER [facility] Dec 18, 2018 11:00 AM VA-TOBACCO USE WI 30 MIN OF WAKEUP [facility] Dec 18, 2018 11:00 AM VA-TOBACCO USER EVERY DAY [facility] Pathology Reports: +/- 30 days of the [...] the Encounter. The data comes from all [facility] facilities. Date/Time Pathology Report Provider Source Sep 20, 2024 02:55 PM LR CYTOPATHOLOGY R EPORT: LOCAL TITLE: LR CYTOPATHOLOGY REPORT STANDARD TITLE: PATHOLOGY PROCEDURE NOTE DATE OF NOTE: SEP 20, 2024@14:55:17 ENTRY DATE: SEP 20, 2024@14:55:17 AUTHOR: NESSA FRANK EXP COSIGNER: URGENCY: STATUS: COMPLETED $APHDR - [...] - PATHOLOGY REPORT Accession No. CY 24 1413 - - - - - - - - - - - - - - - - - - - - - - - - - - - - - - - - - - - - - - - - $TEXT Submitted by: Date obtained: Sep 13, 2024 - - - - - - - - - - - - - - - - - - - - - - - - - - - - - - - - - - - - - - - - Specimen (Received Sep 16, 2024 09:11): CERVICAL PAP WITH HPV CO-TEST - - - - - - - - - - - - - - - - - - - - - - - - - - - - - - - - - - - - - - - - BRIEF CLINICAL HISTORY: 64 Y/O P:0 10 YEARS POST MENOPAUSE, LAST PAP 2018 NILM AND HPV NEGATIVE. - - - - - - - [...] - - - - POSTOPERATIVE DIAGNOSIS: Surgeon/physician: DAYAN DREW MD =-=-=-=-=-=-=-=-=-=-=-=-=-=-=-= -=-=-=-=-=-=-=-=-=-=-=-=-=-=-=- =-=-=-=-=-=-=-=-= - - - - - - - - - - - - - - - - - - - - - - - - - - - - - - - - - - - - - - - - PATHOLOGY REPORT Accession No. CY [id number] - - - - - - - - - - - - - - - - - - - - - - - - - - - - - - - - - - - - - - - - Screened by: ALLI LOPEZ DESCRIPTION SPECIMEN RECEIVED IN PRESERVCYT SOLUTION LABELED ADRI JIMENEZ [phone]. ONE THINPREP PREPARED. A SPECIMEN ALIQUOT WITH AN APPROPRIATE ORDER FORM IS SUBMITTED TO [facility] FOR HPV TESTING. DIAGNOSIS: SPECIMEN TYPE: ThinPrep Liquid-Based Preparation: Manual Pap Test Screening SPECIMEN ADEQUACY: SATISFACTORY FOR EVALUATION Transition zone component absent INTERPRETATION / RESULTS: Negative for intraepithelial lesion or malignancy (NILM) Atrophy EDUCATIONAL NOTE: Pap smear screening tests used to aid in the detection of premalignant and malignant conditions of the cervix are not diagnostic procedures and should not be the sole means of cancer detection. False-positives and false-negatives occur. HPV RESULT: HPV mRNA E6/E7 NOT DETECTED Methodology: Gear Nicker Mediated Amplification This assay detects E6/E7 viral messenger RNA (mRNA) from 14 high-risk HPV types (16,18,31,35,39,45,51,52,59,66, & 68) [facility] [address], [address] [place] [address] Shoe Handler: Nixon Andrade IA#:[id number] Please see [facility] for the original HPV report. /anastacio/ NESSA FRANK MD, PhD STAFF PATHOLOGIST Signed Sep 20, 2024@14:55 Performing Laboratory: Cytology Report Performed By: [address] CLIA# [id number] [address] [address] $FTR - - - - - - - - - - - - - - - - - - - - - - - - - - - - - - - - - - - - - - - - (End of report) NESSA FRANK MD ph Date Sep 20, 2024 - - - - - - - - - - - - - - - - - - - - - - - - - - - - - - - - - - - - - - - - ADRI JIMENEZ STANDARD FORM 515 ID:[id number] SEX:F :1960 AGE: 64 LOC:PCKIBLI PCP: Jackie Johnson MD /anastacio/ NESSA FRANK MD, PhD STAFF PATHOLOGIST Signed: 09/20/2024 14:55 NESSA FRANK [facility] Encounter Notes: All associated encounter notes This section contains the clinical notes associated to the Encounter. Date/Time Encounter Note(s) Provider Source Aug 29, 2024 11:21 AM NURSING IMMUNIZATI ON NOTE: [facility] COVID-19 VACCINE ADMINISTRATION STANDARD TITLE: NURSING IMMUNIZATION NOTE DATE OF NOTE: AUG 29, 2024@11:21 ENTRY DATE: AUG 29, 2024@11:21:27 AUTHOR: JJ REDMAN EXP COSIGNER: URGENCY: STATUS: COMPLETED Additional Information: [facility] Interim Clinical Considerations for Use of COVID-19 Vaccines in [facility] COVID-19 Vaccine SharePoint Pfizer Monovalent (Comirnaty) Administered: COVID-19 (PFIZER), MRNA, LNP-S, PF, HIEN-SUCROSE, 30 MCG/0.3 ML (AGES 12+ YEARS) Date Administered: Aug 29, 2024 10:32 Series: [employer]oster [employer] Stress Analyst: [employer] Lot: [id number] Exp Date: Feb 11, 2025 [facility]: [id number] Admin Route/Site: INTRAMUSCULAR/RIGHT DELTOID Dosage: 0.3mL Vaccine Information Statement(s): COVID-19 MRNA VACCINE (12+ YRS) VACCINE VIS Aug 31, 2023 ([facility]) Order By: Policy Administered By: Jj Redman Vaccine administered without complications. /anastacio/ JJ REDMAN RN BSN Vaccine [employer] Police Officer Signed: 08/29/2024 11:25 JJ REDMAN [facility]
--- OUTSIDE RECORDS SUMMARY | 2024-11-22 22:23 | XMS_ITS | Encounter Summary ---
Author Name [place] Address [address] [place] [address] Care Team Providers Care Aeronautical Engineering Teacher Name Role Phone JACKIE HAWKINS Primary Care [...] Noble's Name Patient's Relationship to Policy Noble [facility] Mar 12, 2010 Jun 18, 2027 [facility] [id number] [phone] ANNE JIMENEZ PATIENT OPTUM RX [facility] Mar 12, 2010 Jun 18, 2027 [facility] [id number] [phone] ANNE JIMENEZ PATIENT Selected Encounter This section includes the information on record at [place] for the Encounter. Date/Time Encounter Type Encounter Description Reason Provider Source May 06, 2024 01:02 PM Outpatient Encounter [facility] (IR) ICD-10-CM R22.1 Localized swelling, mass and lump, neck SERBAN,SHELDON IHE Encounter Template Text not used by [place] Assessments - Encounter Diagnoses This section includes the primary and secondary diagnoses documented for the Encounter. Date/Time Primary/Secondary Diagnosis Diagnosis Name Provider Source May 06, 2024 01:07 PM PRIMARY Localized swelling, mass and lump, neck SERBAN,SHELDON [facility] Plan of Treatment: Future Appointments (+ 6 months) and Future Tests (+/- 45 days) The Plan of Treatment section includes future care activities for the patient from all [place] treatmentfacilities. This section includes future appointments and future orders which are active, pending or scheduled. Future Appointments This section includes appointments that were scheduled to occur 6 months from the date of the Encounter, up to a maximum of 20 appointments. The data comes from all [place] treatment facilities. Appointment Date/Time Appointment Type Appointme nt Facility Name Jun 05, 2024 10:30 AM AMBULATORY - MEDICINE [facility] Jul 08, 2024 09:45 AM AMBULATORY - REHAB MEDICIN E [facility] Jul 08, 2024 10:00 AM AMBULATORY - SURGERY . [facility] Jul 25, 2024 10:30 AM AMBULATORY - MEDICINE [facility] Aug 29, 2024 10:32 AM AMBULATORY - NONE [facility] Sep 13, 2024 11:00 AM AMBULATORY - MEDICINE [facility] Lab Results: +/- 30 days of the encounter This section includes the Chemistry and Hematology Lab Results on record with [place] for the patient. Radiology Reports and Pathology Reports are provided separately, in subsequent sections. Lab Results This section contains the Chemistry/Hematology Results that were resulted 30 days before or 30 daysafter the date of the Encounter. Date/Time Source Result Type Result - Unit Interpretation Reference Range Comment Apr 18, 2024 09:50 AM [facility] I-STAT, CREAT (STL-MA) Specimen Type: BLOOD Comment: Test Performed by: [id number] Meter #: [id number] Ordering Provider: JACKIE HAWKINS Report Released Date/Time: Apr 18, 2024 09:52 AM Reporting Lab: [facility] [address] [address] Performing Lab: [place] [address] [address] I-STAT, CREAT (STL-MA) 0.5 mg/dL L 0.7-1.3 Social History: Smoking Status (Most current) and Tobacco Use (All prior to encounter date) This section includes the most current, and the historical, smoking and tobacco- related health factors from the [place] facility where the Encounter took place. Current Smoking Status This section includes the most current smoking, or tobacco-related health factor, from the [place] facility where the Encounter took place. Date/Time Current Smoking Status Comment Facil ity Jul 26, 2023 10:00 AM VA-TOBACCO USER EVERY DAY [facility] Tobacco Use History This section includes a history of the smoking, or tobacco-related health factors, that were collected on or before the date of the Encounter. The data comes from the [place] facility where the Encounter took place. Date/Time Smoking Status/Tobacco Use Comment F acility Jul 26, 2023 10:00 AM VA-TOBACCO USE ADVICE [facility] Jul 26, 2023 10:00 AM VA-TOBACCO USE NURSING PROGRAM DIRECTOR NO [facility] Jul 26, 2023 10:00 AM VA-TOBACCO USE MED NO [facility] Jul 26, 2023 10:00 AM VA-TOBACCO USE WI 30 MIN OF WAKEUP [facility] Jul 26, 2023 10:00 AM VA-TOBACCO USER EVERY DAY [facility] Jul 21, 2022 11:00 AM VA-TOBACCO USE 30 YEARS OR MORE [facility] Jul 21, 2022 11:00 AM VA-TOBACCO USE ADVICE [facility] Jul 21, 2022 11:00 AM VA-TOBACCO USE NURSING PROGRAM DIRECTOR NO [facility] Jul 21, 2022 11:00 AM VA-TOBACCO USE MED NOTIFY PROVIDER [facility] Jul 21, 2022 11:00 AM VA-TOBACCO USE MED YES [facility] Jul 21, 2022 11:00 AM VA-TOBACCO USE WI 30 MIN OF WAKEUP [facility] Jul 21, 2022 11:00 AM VA-TOBACCO USER EVERY DAY [facility] Jan 13, 2020 10:39 AM VA-TOBACCO USE 30 YEARS OR MORE [facility] Jan 13, 2020 10:39 AM VA-TOBACCO USE ADVICE [facility] Jan 13, 2020 10:39 AM VA-TOBACCO USE NURSING PROGRAM DIRECTOR NO [facility] Jan 13, 2020 10:39 AM VA-TOBACCO USE MED YES [facility] Jan 13, 2020 10:39 AM VA-TOBACCO USE WI 30 MIN OF WAKEUP [facility] Jan 13, 2020 10:39 AM VA-TOBACCO USER EVERY DAY [facility] Feb 05, 2019 10:32 AM TOBACCO OFFERED PT MEDS (PROVIDER) [facility] Dec 18, 2018 11:00 AM TOBACCO MEDS OFFER ED BUT DECLINED [facility] Dec 18, 2018 11:00 AM VA-TOBACCO USE > 1 5 LESS THAN 30 YEARS [facility] Dec 18, 2018 11:00 AM VA-TOBACCO USE ADVICE [facility] Dec 18, 2018 11:00 AM VA-TOBACCO USE NURSING PROGRAM DIRECTOR NO [facility] Dec 18, 2018 11:00 AM VA-TOBACCO USE MED NOTIFY PROVIDER [facility] Dec 18, 2018 11:00 AM VA-TOBACCO USE WI 30 MIN OF WAKEUP [facility] Dec 18, 2018 11:00 AM VA-TOBACCO USER EVERY DAY [facility] Radiology Reports: +/- 30 days of the [...] the Encounter. The data comes from all [place] treatment facilities. Date/Time Radiology Report Provider Source Jun 05, 2024 10:14 AM FNA BIOPSY INCLUDI NG US GUIDANCE, FIRST LESION: ADRI JIMENEZ ABBY [id number] -1960 F Exm Date: JUN 05, 2024@10:14 Req Phys: JACKIE HAWKINS Pat Loc: DEEPTI-IR E-CONSULT (Req'g Loc) Img Loc: DEEPTI-ANGIO/INTERVENTIONAL Service: Unknown [facility], [address] [place] [address] (Case [id number] COMPLETE) FNA BIOPSY INCLUDING US GUIDANCE,(ANI Detailed) CPT:03045 Reason for Study: FNA left neck mass Clinical History: Report Status: Verified Date Reported: JUN 05, 2024 Date Verified: JUN 05, 2024 Tool Clerk E-Sig:/ES/HILARIO DALTON M.D. Report: \H\History: \N\Indeterminate left neck [...] DALTON M.D., Physician, Vascular & Interventional Rad (Tool Clerk) / HILARIO DALTON [facility] Apr 18, 2024 09:[address] NECK SOFT TISSU E W/CONT: ADRI JIMENEZ ABBY [id number] -1960 F Exm Date: APR 18, 2024@09:32 Req Phys: MARGUERITE FONG Loc: DEEPTI-PACT C9 PCP (Req'g Loc) Img Loc: DEEPTI-CT IMAGING DEEPTI Service: Unknown [facility], [facility] [address] [place] [address] (Case [id number] COMPLETE) CT NECK SOFT TISSUE W/CONT (CT Detailed) CPT:33378 Contrast Media : Non-ionic Iodinated Reason for Study: Neck/soft tissue mass Clinical History: Responsible Attending: Jackie Real (Marguerite Fong MD covering) Attending Contact Number: [phone] Resident Contact Number: Palmer recently has a neck u/S, which recommended follow up CT neck with contrast. Please see recent U/S report/images in [facility] [facility]. Allergies listed in CPRS chart: PENICILLIN, SULFA DRUGS Creatinine: CREATININE 0.73 mg/dL 08/03/2023 10:10 /eGFR: STL EGFR (within one year). CREATININE 0.73 mg/dL (08/03/23 10:10) Wt: 120.1 lb [54.48 kg] (01/23/2024 10:26) History of: Renal failure, chronic or acute renal disease: NO Report Status: Verified Date Reported: APR 18, 2024 Date Verified: APR 18, 2024 Tool Clerk E-Sig:/ES/CHANDAN RENEEAPSEKAR Report: INDICATION: Neck/soft tissue mass COMPARISON:Ultrasound 03/09/2024. CT 09/04/2019. TECHNIQUE: CT neck with intravenous contrast. FINDINGS: Multilevel degenerative disc disease. Emphysema. Intracranial and extracranial atherosclerosis. 8 mm low density nodule in the left thyroid lobe is nonspecific. Mucosal retention cyst in the left maxillary sinus. Streak artifact from dental amalgam markedly limits evaluation of the parotid spaces. No skin marker is placed on the present study. There is a questionable hypodensity in the inferior aspect of the left parotid gland. For reference axial series 5 image 570, coronal series 3 image 40, and sagittal series 4 image 49. The angle of the mandible is anterior to this lesion. The recommended to vein is posterior dislocation. The left carotid space is medial to this lesion. The lesion approximately measures 1.2 cm craniocaudal, 0.9 cm transverse, and 1.1 cm anterior posterior. It is difficult to determine if this is a true lesion related to an abnormal lymph node or a salivary gland tumor or a pseudolesion. In retrospect, the palpable abnormality in August 2019 was in this region base of the position of the skin marker. No abnormal intracranial enhancement. No suspicious orbital mass. Visualized cogeneration technician spaces are normal. Visualized pharynx, retropharynx, and parapharyngeal spaces are normal. Normal larynx. Scattered nonspecific subcentimeter lymph nodes. Impression: Questionable hypodensity in the inferior aspect of the left parotid gland as discussed above may represent a true lesion or a pseudolesion. Consultation with interventional radiology and ultrasound guided tissue sampling is recommended. Primary Interpreting Staff: CHANDAN DURANT, RADIOLOGIST (Tool Clerk) /[facility] Encounter Notes: All associated encounter notes This section contains the clinical notes associated to the Encounter. Date/Time Encounter Note(s) Provider Source May 06, 2024 01:02 PM INTERVENTIONAL RAD IOLOGY CONSULT: LOCAL TITLE: E-CONSULT IR OUTPT [facility] STANDARD TITLE: INTERVENTIONAL RADIOLOGY CONSULT DATE OF NOTE: MAY 06, 2024@13:02 ENTRY DATE: MAY 06, 2024@13:02:08 AUTHOR: SHELDON HERNANDEZ EXP COSIGNER: URGENCY: STATUS: COMPLETED The reason for consult: patient had an US soft tissue neck for L neck lump, reported to be indeterminate. This was followed by a CT soft tissue neck done on 04/18/24. Radiologist suggests IR Biopsy for diagnosis I have reviewed pertinent CPRS documentation in the electronic medical record for this patient. The recommendations/findings offered are the result of information from the requesting provider and a chart review only. Diagnosis and/or Impression: Approved for US guided FNA of the left neck mass (retromandibular, inferior to parotid). 5-10 minutes or less spent reviewing patient's medical records /anastacio/ Sheldon Hernandez MD Interventional Radiologist Signed: 05/06/2024 13:07 Receipt Acknowledged By: 05/09/2024 08:54 /anastacio/ LOCO GONSALES RN ASN REGISTERED NURSE SHELDON HERNANDEZ [facility]
--- OUTSIDE RECORDS SUMMARY | 2024-11-22 22:23 | XMS_ITS | Encounter Summary ---
Author Name [facility] [place] Organization [place] Address [address] [place] [address] Care Team Providers Care Landing Signal Officer Name Role Phone JACKIE JOHNSON Primary Care [...] Noble's Name Patient's Relationship to Policy Noble [facility] Mar 12, 2010 Jun 18, 2027 [facility] [id number] [phone] ANNE JIMENEZ PATIENT [facility] Mar 12, 2010 Jun 18, 2027 [facility] [id number] 77 ANNE JIMENEZ PATIENT Selected Encounter This section includes the information on record at [place] for the Encounter. Date/Time Encounter Type Encounter Description Reason Pro vider Source Jun 05, 2024 10:49 AM Outpatient Encounter EVENT (HISTORICAL) IHE Encounter Template Text not used by [place] Plan of Treatment: Future Appointments (+ 6 [...] 20 appointments. The data comes from all [place] treatment facilities. Appointment Date/Time Appointment Type Appointme nt Facility Name Jul 08, 2024 09:45 AM AMBULATORY - REHAB MEDICIN E [facility] Jul 08, 2024 10:00 AM AMBULATORY - SURGERY [facility] Jul 25, 2024 10:30 AM AMBULATORY - MEDICINE [facility] Aug 29, 2024 10:32 AM AMBULATORY - NONE [facility] Sep 13, 2024 11:00 AM AMBULATORY - MEDICINE [facility] Nov 21, 2024 10:00 AM AMBULATORY - MEDICINE [facility] Nov 21, 2024 10:30 AM AMBULATORY - MEDICINE [facility] Social History: Smoking Status (Most current) and Tobacco Use (All prior to encounter date) This section includes the most current, and the historical, smoking and tobacco- related health factors from the [place] facility where the Encounter took place. Current Smoking Status This section includes the most current smoking, or tobacco-related health factor, from the [place] facility where the Encounter took place. Date/Time Current Smoking Status Comment Alexandra ity Jul 26, 2023 10:00 AM VA-TOBACCO USE [place] 30 MIN OF WAKEUP [facility] Tobacco Use History This section includes a history of the smoking, or tobacco-related health factors, that were collected on or before the date of the Encounter. The data comes from the [place] facility where the Encounter took place. Date/Time Smoking Status/Tobacco Use Comment F acility Jul 26, 2023 10:00 AM VA-TOBACCO USE ADVICE [facility] Jul 26, 2023 10:00 AM VA-TOBACCO USE EMPLOYMENT LAW SPECIALIST NO [facility] Jul 26, 2023 10:00 AM VA-TOBACCO USE MED NO [facility] Jul 26, 2023 10:00 AM VA-TOBACCO USE WI 30 MIN OF WAKEUP [facility] Jul 26, 2023 10:00 AM VA-TOBACCO USER EVERY DAY [facility] Jul 21, 2022 11:00 AM VA-TOBACCO USE 30 YEARS OR MORE [facility] Jul 21, 2022 11:00 AM VA-TOBACCO USE ADVICE [facility] Jul 21, 2022 11:00 AM VA-TOBACCO USE EMPLOYMENT LAW SPECIALIST NO [facility] Jul 21, 2022 11:00 AM VA-TOBACCO USE MED NOTIFY PROVIDER [facility] Jul 21, 2022 11:00 AM VA-TOBACCO USE MED YES [facility] Jul 21, 2022 11:00 AM VA-TOBACCO USE WI 30 MIN OF WAKEUP [facility] Jul 21, 2022 11:00 AM VA-TOBACCO USER EVERY DAY [facility] Jan 13, 2020 10:39 AM VA-TOBACCO USE 30 YEARS OR MORE [facility] Jan 13, 2020 10:39 AM VA-TOBACCO USE ADVICE [facility] Jan 13, 2020 10:39 AM VA-TOBACCO USE EMPLOYMENT LAW SPECIALIST NO [facility] Jan 13, 2020 10:39 AM VA-TOBACCO USE MED YES [facility] Jan 13, 2020 10:39 AM VA-TOBACCO USE WI 30 MIN OF WAKEUP [facility] Jan 13, 2020 10:39 AM VA-TOBACCO USER EVERY DAY [facility] Feb 05, 2019 10:32 AM TOBACCO OFFERED PT MEDS (PROVIDER) [facility] Dec 18, 2018 11:00 AM TOBACCO MEDS OFFER ED BUT DECLINED [facility] Dec 18, 2018 11:00 AM VA-TOBACCO USE > 1 5 LESS THAN 30 YEARS [facility] Dec 18, 2018 11:00 AM VA-TOBACCO USE ADVICE [facility] Dec 18, 2018 11:00 AM VA-TOBACCO USE EMPLOYMENT LAW SPECIALIST NO [facility] Dec 18, 2018 11:00 AM VA-TOBACCO USE MED NOTIFY PROVIDER [facility] Dec 18, 2018 11:00 AM VA-TOBACCO USE WI 30 MIN OF WAKEUP [facility] Dec 18, 2018 11:00 AM VA-TOBACCO USER EVERY DAY [facility] Radiology Reports: +/- 30 days of [...] the Encounter. The data comes from all [place] treatment facilities. Date/Time Radiology Report Provider Source Jun 05, 2024 10:14 AM FNA BIOPSY INCLUDI NG US GUIDANCE, FIRST LESION: ADRI JIMENEZ [id number] -[id number] F Exm Date: JUN 05, 2024@10:14 Req Phys: JACKIE JOHNSON Loc: DEEPTI-IR E-CONSULT (Req'g Loc) Img Loc: DEEPTI-ANGIO/INTERVENTIONAL Service: [address] [address] (Case [id number] COMPLETE) FNA BIOPSY INCLUDING US GUIDANCE,(ANI Detailed) CPT:95728 Reason for Study: FNA left neck mass Clinical History: Report Status: Verified Date Reported: JUN 05, 2024 Date Verified: JUN 05, 2024 [employer] E-Sig:/KATY/HILARIO DALTON M.D. Report: \H\History: \N\Indeterminate left neck [...] DALTON M.D., Physician, Vascular & Interventional Rad ([employer]) /HILARIO RENTERIA [facility] Pathology Reports: +/- 30 days of [...] the Encounter. The data comes from all [place] treatment facilities. Date/Time Pathology Report Provider Source [...] INFERIOR PAROTID MASS FINE NEEDLE ASPIRATION ON ADRI JIMENEZ ABBY [id number]. 2 PASSES PERFORMED WITH 2 PAP STAINED [...] - CONSISTENT WITH PLEOMORPHIC ADENOMA - SEE TEREZA /katy/ ARNOL PINEDO PATHOLOGIST Signed Jun 06, 2024@13:03 Performing Laboratory: Cytology Report Performed By: [facility], [facility] 15 [facility]# [id number] [address] [place] [phone] $FTR - - - - - - [...] - - ADRI JIMENEZ STANDARD FORM 515 ID:[id number] SEX:F :1960 AGE: 63 LOC:APFEE PCP: Jackie Johnson MD /katy/ ARNOL PINEDO PATHOLOGIST Signed: 06/06/2024 13:03 ARNOL PINEDO [facility]
--- OUTSIDE RECORDS SUMMARY | 2024-11-22 22:23 | XMS_ITS | Encounter Summary ---
Author Name [facility] [place] Organization [facility] [place] Address [address] [place] [address] Care Team Providers Care Administrator Social Welfare Name Role Phone ROSS JACKIE Primary Care [...] Noble's Name Patient's Relationship to Policy Noble [facility] Mar 12, 2010 Jun 18, 2027 [facility] [id number] [phone] ANNE JIMENEZ PATIENT [facility] Mar 12, 2010 Jun 18, 2027 [facility] [id number] 77 ANNE JIMENEZ PATIENT Selected Encounter This section includes the information on record at [place] for the Encounter. Date/Time Encounter Type Encounter Description Reason Provider Source Jul 08, 2024 10:00 AM OFFICE O/P NEW LOW 30 MIN OTOLARYNGOLOGY/ENT ICD-10-CM D11.0 Benign neoplasm of parotid gland GINNA GAN Encounter Template Text not used by [place] Assessments - Encounter Diagnoses This section includes the primary and secondary diagnoses documented for the Encounter. Date/Time Primary/Secondary Diagnosis Diagnosis Name Provider Source Jul 09, 2024 11:02 AM PRIMARY Benign neoplasm of parotid gland GINNA GAN [facility] Plan of Treatment: Future Appointments (+ 6 months) and Future Tests (+/- 45 days) The Plan of Treatment section includes future care activities for the patient from all [place] treatmentfacilities. This section includes future appointments and future orders which are active, pending or scheduled. Future Appointments This section includes appointments that were scheduled to occur 6 months from the date of the Encounter, up to a maximum of 20 appointments. The data comes from all [place] treatment [facility] Appointment Date/Time Appointment Type Appointme nt Facility Name Jul 25, 2024 10:30 AM AMBULATORY - MEDICINE [facility] Aug 29, 2024 10:32 AM AMBULATORY - NONE [facility] Sep 13, 2024 11:00 AM AMBULATORY MEDICINE [facility] Nov 21, 2024 10:00 AM AMBULATORY MEDICINE [facility] Nov 21, 2024 10:30 AM AMBULATORY MEDICINE [facility] Active, Pending, and [...] of theEncounter. The data comes from all [facility]. Test Date/Time Test Type Test Details Facility Name Jul 25, 2024 12:00 AM Laboratory - Chemistry Order LIPID PANEL (STL) GREEN LI/HEP BLD/PLAS [facility] Jul 25, 2024 12:00 AM Laboratory - Chemistry Order HGA1C BLOOD SP [facility] Jul 25, 2024 12:00 AM Laboratory - Chemistry Order TSH (MA-PB) GOLD/RED SST SERUM SP [facility] Jul 25, 2024 12:00 AM Laboratory - Chemistry Order COMPREHENSIVE METABOLIC PANEL GREEN LI/HEP BLD/PLAS [facility] Vital Signs: All taken on the encounter date This section contains inpatient and outpatient Vital Signs collected on the date of the Encounter. Date/Time Temperature Pulse Blood Pressure Respiratory Rate SP02 Pain Height Weight Body Mass Index Source Jul 08, 2024 09:39 AM 97.3 63 114/69 16 98 0 [facility] Social History: Smoking Status (Most current) and Tobacco Use (All prior to encounter date) This section includes the most current, and the historical, smoking and tobacco- related health factors from the [place] facility where the Encounter took place. Current Smoking Status This section includes the most current smoking, or tobacco-related health factor, from the [place] facility where the Encounter took place. Date/Time Current Smoking Status Comment Facil ity Jul 26, 2023 10:00 AM VA-TOBACCO USE [place] 30 MIN OF WAKEUP [facility] Tobacco Use History This section includes a history of the smoking, or tobacco-related health factors, that were collected on or before the date of the Encounter. The data comes from the [place] facility where the Encounter took place. Date/Time Smoking Status/Tobacco Use Comment F acility Jul 26, 2023 10:00 AM VA-TOBACCO USE ADVICE [facility] Jul 26, 2023 10:00 AM VA-TOBACCO USE FUMIGATOR AND STERILIZER NO [facility] Jul 26, 2023 [...] Jul 21, 2022 11:00 AM VA-TOBACCO USE FUMIGATOR AND STERILIZER NO [facility] Jul 21, 2022 [...] Jan 13, 2020 10:39 AM VA-TOBACCO USE FUMIGATOR AND STERILIZER NO [facility] Jan 13, 2020 [...] Dec 18, 2018 11:00 AM VA-TOBACCO USE FUMIGATOR AND STERILIZER NO [facility] Dec 18, 2018 11:00 AM VA-TOBACCO USE MED NOTIFY PROVIDER [facility] Dec 18, 2018 11:00 AM VA-TOBACCO USE WI 30 MIN OF WAKEUP [facility] Dec 18, 2018 11:00 AM VA-TOBACCO USER EVERY DAY [facility] Encounter Notes: All associated encounter notes This section contains the clinical notes associated to the Encounter. Date/Time Encounter Note(s) Provider Source Jul 08, 2024 01:32 PM OTOLARYNGOLOGY CON SULT: LOCAL TITLE: OTOLARYNGOLOGY CONSULT [facility] STANDARD TITLE: OTOLARYNGOLOGY CONSULT DATE OF NOTE: JUL 08, 2024@13:32 ENTRY DATE: JUL 08, 2024@13:32:38 AUTHOR: GINNA GAN COSIGNER: URGENCY: STATUS: COMPLETED CC: pleomorphic adenoma HPI: 64 y/o WHITE FEMALE presents with left neck mass. She noticed this a couple years ago and feels it has been about stable over that time. She denies fluctuation, redness, swelling, drainage, infections, pain. An FNA of this lesion demonstrated that it is a pleomorphic adenoma. She does not have a history of similar lesions or prior surgery in the past. Pt denies neck pain, dysphagia, globus, aspiration, hemoptysis, voice change and unintentional weight loss. PMH: 1) Knee pain (SNOMED CT [id number]) 2) Cervicalgia 3) Lump on neck 4) Gynecological examination normal 5) Nicotine dependence 6) Insomnia MEDICATIONS: Active Outpatient Medications (including Supplies): Active Outpatient Medications Status 1) QUETIAPINE FUMARATE 50MG TAB TAKE ONE-HALF TO ONE ACTIVE TABLET BY MOUTH AT BEDTIME NEEDED FOR SLEEP ALLERGIES: PENICILLIN, SULFA DRUGS PSH: no prior H&N surgery SH: Address: [address] [place] [address] Tobacco: yes EtOH: rare Drug abuse: none FH: ROS: CV: denies chest pain Resp: denies SOB GI: denies N/V, constipation, diarrhea Renal: denies hematuria/dysuria Neuro: denies ROSARIO, blurry vision Heme: no bleeding disorders Derm: no rashes PHYSICAL EXAM: Temp: 97.3 F [36.3 C] (07/08/2024 09:39) Pulse Ox: Measurement DT POx (L/MIN)(%) 07/08/2024 09:39 98 01/23/2024 10:26 100 08/28/2023 09:56 98 07/26/2023 09:54 100 PULSE: 63 (07/08/2024 09:39) RESPIRATION: 16 (07/08/2024 09:39) BLOOD PRESSURE: 114/69 (07/08/2024 09:39) WEIGHT: 120.1 lb [54.48 kg] (01/23/2024 10:26) GEN: Pt is WDWN, NAD, A&Ox3 FACE: Normocephalic/Atraumatic. No scars or cutaneous lesions. EARS: Right: Post-auricular region clear. Pinna WNL. Left: Post-auricular region clear. Pinna WNL. NOSE: External nose normal. Septum midline without perforations. Nasal mucosa moist. Turbinates normal appearing. EYES: EOMI. PERRL. Conjugate gaze. No nystagmus. Vision grossly intact. OC/OP: Mucosa moist without lesions. Hard & soft palate WNL. Tongue, FOM, tonsils & BOT soft to palpation. Shine's & [place]'s ducts WNL. Tongue midline. Tonsils symmetric bilaterally. NECK: 1-2cm firm, mobile, nontender mass in left 2A just deep to the angle of mandible in continuity with parotid gland. NEURO: Cranial nerves II-XII intact. FOE by BOTTOM FILLER: Nasal cavity, nasopharynx, BOT, supraglottis, epiglottis, pyriforms & glottis WNL and without lesions. No pooling of saliva. Mucosa WNL. Bilateral TVC mobile. TESTS: No Impressions found TSH: TSH 0.725 uIU/mL 08/03/2023 10:10 CT: Impression: Questionable hypodensity in the inferior aspect of the left parotid gland as discussed above may represent a true lesion or a pseudolesion. Consultation with interventional radiology and ultrasound guided tissue sampling is recommended. 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 We discussed that this is a benign tumor with a low rate of malignant transformation (1.5% in first five years rising to 10% after 15 years). We discussed surgery and observation are appropriate options given her age and the stability of the lesion. We discussed the risks of surgery including bleeding, infection, pain, lower lip weakness. She would like to pursue conservative management for now with a repeat CT in 6mo and plan further management from there. I agree this is a reasonable appraoch. PLAN: 1. CT neck in 6mo for surveillance, will space out to 1-2yrs if stable /anastacio/ GINNA GAN MD Staff Physician, Otolaryngology Signed: 07/09/2024 10:19 Receipt Acknowledged By: 07/10/2024 14:44 /anastacio/ SYLVIE MORRISON REGISTERED NURSE GINNA GANDemi [facility]
--- OUTSIDE RECORDS SUMMARY | 2024-11-22 22:23 | XMS_ITS | Encounter Summary ---
Author Name [facility] of [place] Organization [facility] [place] Address [address] [place] [address] Care Team Providers Care Car Rider Name Role Phone JACKIE HAWKINS Primary Care [...] Name Patient's Relationship to Policy Noble [facility] Mar 12, 2010 Jun 18, 2027 [facility] [id number] [phone] ANNE JIMENEZ PATIENT [facility] Mar 12, 2010 Jun 18, 2027 [facility] [id number] ANNE JIMENEZ PATIENT Selected Encounter This section includes the information on record at [place] for the Encounter. Date/Time Encounter Type Encounter Description Reason Pro vider Source March 13, 2024 10:02 AM Outpatient Encounter GENERAL INTERNAL MEDICINE IHE Encounter Template Text not used by [place] Plan of Treatment: Future Appointments (+ 6 [...] 20 appointments. The data comes from all [place] treatment facilities. Appointment Date/Time Appointment Type Appointme nt Facility Name Apr 18, 2024 10:00 AM AMBULATORY - NONE [facility] May 06, 2024 08:30 AM AMBULATORY - PSYCHIATRY [facility] Jun 05, 2024 10:30 AM AMBULATORY - MEDICINE [facility] Jul 08, 2024 09:45 AM AMBULATORY - REHAB MEDICIN E [facility] Jul 08, 2024 10:00 AM AMBULATORY - SURGERY [facility] Jul 25, 2024 10:30 AM AMBULATORY - MEDICINE [facility] Aug 29, 2024 10:32 AM AMBULATORY - NONE [facility] Sep 13, 2024 11:00 AM AMBULATORY - MEDICINE [facility] Social History: Smoking Status (Most current) and Tobacco Use (All prior to encounter date) This section includes the most current, and the historical, smoking and tobacco- related health factors from the [place] facility where the Encounter took place. Current Smoking Status This section includes the most current smoking, or tobacco-related health factor, from the [place] facility where the Encounter took place. Date/Time Current Smoking Status Comment Alexandra ity Jul 26, 2023 10:00 AM VA-TOBACCO USER EVERY DAY [facility] Tobacco Use History This section includes a history of the smoking, or tobacco-related health factors, that were collected on or before the date of the Encounter. The data comes from the [place] facility where the Encounter took place. Date/Time Smoking Status/Tobacco Use Comment F acility Jul 26, 2023 10:00 AM VA-TOBACCO USE ADVICE [facility] Jul 26, 2023 10:00 AM VA-TOBACCO USE CRANBERRY BOG SUPERVISOR NO [facility] Jul 26, 2023 10:00 AM VA-TOBACCO USE MED NO [facility] Jul 26, 2023 10:00 AM VA-TOBACCO USE WI 30 MIN OF WAKEUP [facility] Jul 26, 2023 10:00 AM VA-TOBACCO USER EVERY DAY [facility] Jul 21, 2022 11:00 AM VA-TOBACCO USE 30 YEARS OR MORE [facility] Jul 21, 2022 11:00 AM VA-TOBACCO USE ADVICE [facility] Jul 21, 2022 11:00 AM VA-TOBACCO USE CRANBERRY BOG SUPERVISOR NO [facility] Jul 21, 2022 11:00 AM VA-TOBACCO USE MED NOTIFY PROVIDER [facility] Jul 21, 2022 11:00 AM VA-TOBACCO USE MED YES [facility] Jul 21, 2022 11:00 AM VA-TOBACCO USE WI 30 MIN OF WAKEUP [facility] Jul 21, 2022 11:00 AM VA-TOBACCO USER EVERY DAY [facility] Jan 13, 2020 10:39 AM VA-TOBACCO USE 30 YEARS OR MORE [facility] Jan 13, 2020 10:39 AM VA-TOBACCO USE ADVICE [facility] Jan 13, 2020 10:39 AM VA-TOBACCO USE CRANBERRY BOG SUPERVISOR NO [facility] Jan 13, 2020 10:39 AM VA-TOBACCO USE MED YES [facility] Jan 13, 2020 10:39 AM VA-TOBACCO USE WI 30 MIN OF WAKEUP [facility] Jan 13, 2020 10:39 AM VA-TOBACCO USER EVERY DAY [facility] Feb 05, 2019 10:32 AM TOBACCO OFFERED PT MEDS (PROVIDER) [facility] Dec 18, 2018 11:00 AM TOBACCO MEDS OFFER ED BUT DECLINED [facility] Dec 18, 2018 11:00 AM VA-TOBACCO USE > 1 5 LESS THAN 30 YEARS [facility] Dec 18, 2018 11:00 AM VA-TOBACCO USE ADVICE [facility] Dec 18, 2018 11:00 AM VA-TOBACCO USE CRANBERRY BOG SUPERVISOR NO [facility] Dec 18, 2018 11:00 AM VA-TOBACCO USE MED NOTIFY PROVIDER [facility] Dec 18, 2018 11:00 AM VA-TOBACCO USE [place] 30 MIN OF WAKEUP [facility] Dec 18, 2018 11:00 AM VA-TOBACCO USER EVERY DAY [facility] Radiology Reports: +/- 30 days of [...] the Encounter. The data comes from all [place] treatment facilities. Date/Time Radiology Report Provider Source Mar 09, 2024 10:39 AM US THYROID (NECK SOFT-TISSUE): ADRI JIMENEZ [id number] -1960 F Exm Date: MAR 09, 2024@10:39 Req Phys: JACKIE HAWKINS Pat Loc: DEEPTI-PACT C9 PCP (Req'g Loc) Img Loc: DEEPTI-ULTRASOUND DEEPTI Service: [facility] [address] [place] [address] (Case [id number] COMPLETE) US THYROID (NECK SOFT-TISSUE) (US Detailed) CPT:93354 Reason for Study: lymph node ? :Left behind angle of mandible Clinical History: Report Status: Verified Date Reported: MAR 11, 2024 Date Verified: MAR 11, 2024 Sap Manager E-Sig:/ES/ZHANG CARMONA Report: CASE #: [id number] DATE:03/11/2024 7:56 AM CLINICAL HISTORY:lymph node ? [...] considered. Dictated by Kim Mcdonnell M.D. (Diagnostic Ballet Soloist). I, Zhang Carmona, have reviewed the images and report and concur with these findings. Primary Interpreting Staff: ZHANG CARMONA MD (Sap Manager) Primary Interpreting Resident: Kim Mcdonnell MD, Resident Physician /ZHANG [facility] Encounter Notes: All associated encounter notes This section contains the clinical notes associated to the Encounter. Date/Time Encounter Note(s) Provider Source March 13, 2024 10:02 AM SCANNED NOTE: LOCAL TITLE: SCANNED [place] MEDICAL RECORD [facility] STANDARD TITLE: SCANNED NOTE DATE OF NOTE: MARCH 13, 2024@10:02 ENTRY DATE: MAY 12, 2024@22:20:56 AUTHOR: SARKIS HOFFMAN EXP COSIGNER: URGENCY: STATUS: COMPLETED VistA Imaging - Scanned Document RADIOLOGY [id number] /es/ SARKIS HOFFMAN replace Signed: 05/12/2024 22:20 SARKIS HOFFMAN [facility]
--- OUTSIDE RECORDS SUMMARY | 2024-11-22 22:23 | XMS_ITS | Encounter Summary ---
Author Name [facility] [place] Address [address] [place] [address] Care Team Providers Care Classified Advertising Supervisor Name Role Phone ROSS PATRICK Primary Care [...] Noble's Name Patient's Relationship to Policy Noble [facility] Mar 12, 2010 Jun 18, 2027 [facility] [id number] [phone] [facility] Mar 12, 2010 Jun 18, 2027 [facility] [id number] [phone] ANNE HUNT PATIENT Selected Encounter This section includes the information on record at [place] for the Encounter. Date/Time Encounter Type Encounter Description Reason Provider Source Sep 13, 2024 11:00 AM OFFICE O/P EST MOD 30 MIN PRIMARY CARE/MEDICINE ICD-10-CM Z12.4 Encounter for screening for malignant neoplasm of cervix AMALIA DREW Encounter Template Text not used by [place] Assessments - Encounter Diagnoses This section includes the primary and secondary diagnoses documented for the Encounter. Date/Time Primary/Secondary Diagnosis Diagnosis Name Provider Source Sep 13, 2024 11:43 AM PRIMARY Encounter for screening for malignant neoplasm of cervix AMALIA LOPEZ [facility] Sep 13, 2024 11:43 AM SECONDARY Encounter for screening for human papillomavirus (HPV) RAJENDRAAMALIA [facility] Plan of Treatment: Future Appointments (+ 6 months) and Future Tests (+/- 45 days) The Plan of Treatment section includes future care activities for the patient from all [place] treatmentfacilities. This section includes future appointments and future orders which are active, pending or scheduled. Future Appointments This section includes appointments that were scheduled to occur 6 months from the date of the Encounter, up to a maximum of 20 appointments. The data comes from all [place] treatment facilities. Appointment Date/Time Appointment Type Appointme nt Facility Name Nov 21, 2024 10:00 AM AMBULATORY - MEDICINE [facility] Nov 21, 2024 10:30 AM AMBULATORY MEDICINE [facility] Lab Results: +/- 30 days of the encounter This section includes the Chemistry and Hematology Lab Results on record with [place] for the patient. Radiology Reports and Pathology Reports are provided separately, in subsequent sections. Lab Results This section contains the Chemistry/Hematology Results that were resulted 30 days before or 30 daysafter the date of the Encounter. Date/Time Source Result Type Result - Unit Interpretation Reference Range Comment Aug 27, 2024 12:00 PM [facility] OCCULT BLOOD FIT X1 SCREEN Specimen Type: FECES No comment entered. Ordering Provider: PATRICK HAWKINS Report Released Date/Time: Jul 25, 2024 11:20 AM Reporting Lab: [facility] [address] [facility] [phone] Performing Lab: [facility] [address] [facility] [phone] OCCULT BLOOD (FIT) #1 OF 1 Negative Negative Vital Signs: All taken on the encounter date This section contains inpatient and outpatient Vital Signs collected on the date of the Encounter. Date/Time Temperature Pulse Blood Pressure Respiratory Rate SP02 Pain Height Weight Body Mass Index Source Sep 13, 2024 11:06 AM 97.4 66 123/65 16 98 0 127.1 23 [facility] Social History: Smoking Status (Most current) and Tobacco Use (All prior to encounter date) This section includes the most current, and the historical, smoking and tobacco- related health factors from the [place] facility where the Encounter took place. Current Smoking Status This section includes the most current smoking, or tobacco-related health factor, from the [place] facility where the Encounter took place. Date/Time Current Smoking Status Comment Facil ity Jul 25, 2024 10:30 AM VA-TOBACCO USE WI 30 MIN OF WAKEUP [facility] Tobacco Use History This section includes a history of the smoking, or tobacco-related health factors, that were collected on or before the date of the Encounter. The data comes from the [place] facility where the Encounter took place. Date/Time Smoking Status/Tobacco Use Comment F acility Jul 25, 2024 10:30 AM VA-TOBACCO USE ADVICE [facility] Jul 25, 2024 10:30 AM VA-TOBACCO USE ELECTRIC OPERATOR NO [facility] Jul 25, 2024 10:30 AM VA-TOBACCO USE MED NO [facility] Jul 25, 2024 10:30 AM VA-TOBACCO USE WI 30 MIN OF WAKEUP [facility] Jul 25, 2024 10:30 AM VA-TOBACCO USER EVERY DAY [facility] Jul 26, 2023 10:00 AM VA-TOBACCO USE 30 YEARS OR MORE [facility] Jul 26, 2023 10:00 AM VA-TOBACCO USE ADVICE [facility] Jul 26, 2023 10:00 AM VA-TOBACCO USE ELECTRIC OPERATOR NO [facility] Jul 26, 2023 10:00 AM VA-TOBACCO USE MED NO [facility] Jul 26, 2023 10:00 AM VA-TOBACCO USE WI 30 MIN OF WAKEUP [facility] Jul 26, 2023 10:00 AM VA-TOBACCO USER EVERY DAY [facility] Jul 21, 2022 11:00 AM VA-TOBACCO USE 30 YEARS OR MORE [facility] Jul 21, 2022 11:00 AM VA-TOBACCO USE ADVICE [facility] Jul 21, 2022 11:00 AM VA-TOBACCO USE ELECTRIC OPERATOR NO [facility] Jul 21, 2022 11:00 AM VA-TOBACCO USE MED NOTIFY PROVIDER [facility] Jul 21, 2022 11:00 AM VA-TOBACCO USE MED YES [facility] Jul 21, 2022 11:00 AM VA-TOBACCO USE WI 30 MIN OF WAKEUP [facility] Jul 21, 2022 11:00 AM VA-TOBACCO USER EVERY DAY [facility] Jan 13, 2020 10:39 AM VA-TOBACCO USE 30 YEARS OR MORE [facility] Jan 13, 2020 10:39 AM VA-TOBACCO USE ADVICE [facility] Jan 13, 2020 10:39 AM VA-TOBACCO USE ELECTRIC OPERATOR NO [facility] Jan 13, 2020 10:39 AM VA-TOBACCO USE MED YES [facility] Jan 13, 2020 10:39 AM VA-TOBACCO USE WI 30 MIN OF WAKEUP [facility] Jan 13, 2020 10:39 AM VA-TOBACCO USER EVERY DAY [facility] Feb 05, 2019 10:32 AM TOBACCO OFFERED PT MEDS (PROVIDER) [facility] Dec 18, 2018 11:00 AM TOBACCO MEDS OFFER ED BUT DECLINED [facility] Dec 18, 2018 11:00 AM VA-TOBACCO USE > 1 5 LESS THAN 30 YEARS [facility] Dec 18, 2018 11:00 AM VA-TOBACCO USE ADVICE [facility] Dec 18, 2018 11:00 AM VA-TOBACCO USE ELECTRIC OPERATOR NO [facility] Dec 18, 2018 11:00 AM VA-TOBACCO USE MED NOTIFY PROVIDER [facility] Dec 18, 2018 11:00 AM VA-TOBACCO USE WI 30 MIN OF WAKEUP [facility] Dec 18, 2018 11:00 AM VA-TOBACCO USER EVERY DAY [facility] Pathology Reports: +/- 30 days of [...] the Encounter. The data comes from all [facility] facilities. Date/Time Pathology Report Provider Source Sep [...] P:0 10 YEARS POST MENOPAUSE, LAST PAP 2019 NILM AND HPV NEGATIVE. - - - [...] - - - - POSTOPERATIVE DIAGNOSIS: Surgeon/physician: AMALIA DREW MD =-=-=-=-=-=-=-=-=-=-=-=-=-=-=-= -=-=-=-=-=-=-=-=-=-=-=-=-=-=-=- =-=-=-=-=-=-=-=-= - - [...] DESCRIPTION SPECIMEN RECEIVED IN [employer] SOLUTION LABELED SUMMER HUNT ABBY [id number]. ONE THINPREP PREPARED. A SPECIMEN ALIQUOT WITH AN APPROPRIATE ORDER FORM IS SUBMITTED TO [facility] FOR HPV TESTING. DIAGNOSIS: SPECIMEN TYPE: ThinPrep [...] RESULT: HPV mRNA E6/E7 NOT DETECTED Methodology: Developmental Psychologist Mediated Amplification This assay detects E6/E7 viral messenger RNA (mRNA) from 14 high-risk HPV types (16,18,31,35,39,45,51,52,59,66, & 68) [facility] [place], [address] [place] [id number] Soil Fertility Specialist: MALINA Barroso#:[id number] Please see [facility] [facility] for the original HPV report. /es/ NESSA FRANK MD, PhD STAFF PATHOLOGIST Signed Sep 20, 2024@14:55 Performing Laboratory: Cytology Report Performed By: [facility] 15 [facility] CLIA# [id number] [address] [place] [phone] $FTR - - - - - - - - - - - - - - - - - - - - - - - - - - - - - - - - - - - - - - - - (End of report) NESSA FRANK MD Date Sep 20, 2024 - - - - - - - - - - - - - - - - - - - - - - - - - - - - - - - - - - - - - - - - SUMMER HUNT STANDARD FORM 515 ID:[id number] SEX:F :1960 AGE: 64 LOC:PCKIBLI PCP: Patrick Hawkins MD /anastacio/ NESSA FRANK MD, PhD STAFF PATHOLOGIST Signed: 09/20/2024 14:55 NESSA FRANK [facility] Encounter Notes: All associated encounter notes This section contains the clinical notes associated to the Encounter. Date/Time Encounter Note(s) Provider Source Sep 20, 2024 03:55 PM [facility] OUTP ATIENT LETTERS: LOCAL TITLE: [facility] PAP RESULT LETTER RUST STANDARD TITLE: [facility] OUTPATIENT LETTERS DATE OF NOTE: SEP 20, 2024@15:55 ENTRY DATE: SEP 20, 2024@15:55:08 AUTHOR: AMALIA DREW COSIGNER: URGENCY: STATUS: COMPLETED [facility] [address] [place] [id number] SEP 20, 2024 SUMMER HUNT [address] [address] Dear Summer Hunt, As we discussed on the phone, here are your test results and plan of care. You completed a pap test on Sep. The pap smear is a test in which cells are collected from your cervix and viewed under a microscope. These cells, like other cells in our body, can change. This test can detect early changes in the cells and be used to prevent future problems. Your pap test was normal. Human Papilloma Virus (HPV) is a virus that can cause changes to the cells of the cervix. HPV test result was negative. You are due for a repeat pap smear with HPV cotesting, 5 years Sep, 2028. Please call the clinic with further questions at Clinic Dr. Amalia Drew Physician, Primary Care [address] [place] [address] Clinic Clinic Sincerely, AMALIA DREW MD STAFF PHYSICIAN SUMMER HUNT [facility] Sep 13, 2024 11:40 AM PRIMARY CARE NOTE: LOCAL TITLE: PRIMARY CARE PROVIDER ESTABLISHED VISIT STL STANDARD TITLE: PRIMARY CARE NOTE DATE OF NOTE: SEP 13, 2024@11:40 ENTRY DATE: SEP 13, 2024@11:40:26 AUTHOR: AMALIA DREW EXP COSIGNER: URGENCY: STATUS: COMPLETED PRIMARY CARE PROVIDER ESTABLISHED VISIT STL Has ADDENDA DEEPTI-PACT [facility]/PAP ONLY APPOINTMENT HPI: SUMMER HUNT is a 64 year old FEMALE with a PMHx of chronic c spine pain who presents to primary care clinic for pap smear. Interval Hx: -last PCP visit: 07/25/24 08/29/2024 10:32 DEEPTI-PC COVID-19 WALK-IN CL 07/25/2024 10:30 DEEPTI-PACT C9 PCP 07/08/2024 10:00 DEEPTI-ENT HEAD AND NECK CONS 07/08/2024 09:45 DEEPTI-SPEECH THROAT EVALUATI Presents for pap smear. Reports dyspareunia since menopause. Denies AUB, discharge, STI risk, or any other symptoms. Does not enjoy intercourse due to pain. Prev on vaginal estrogen no longer using. REQ pediatric XS speculum REVIEW OF SYSTEMS: All 10 systems reviewed and negative except as noted above MEDICAL HISTORY: 1) Knee pain (SNOMED CT [id number]) 2) Cervicalgia 3) Lump on neck 4) Gynecological examination normal 5) Nicotine dependence 6) Insomnia SURGICAL HISTORY reviewed FAMILY HISTORY reviewed SOCIAL HISTORY reviewed ALLERGIES PENICILLIN, SULFA DRUGS Active Outpatient Medications (including Supplies): Active Outpatient Medications Status 1) QUETIAPINE FUMARATE 50MG TAB TAKE ONE-HALF TO ONE ACTIVE TABLET BY MOUTH AT BEDTIME NEEDED FOR SLEEP PHSYICAL EXAM: BP: 123/65 P: 66 R: 16 WT: 127.1 T: 97.4 HT: General: Sitting in chair, in no acute distress Skin: No rashes, bruising Abdominal: Soft, Non-tender Extremities: Moving all extremities. Neuro: Alert and oriented x3. No focal deficits PELVIC EXAM CHAPERONED BY SHELIA CRESPO LPN Patient Alert & Oriented, agreeable to the exam Pelvic Exam: EGBUS without lesion/rash. PAIN WITH INSERTION OF SINGLE DIGIT ON MANUAL EXAM. Vag: no lesion/dc. NARROW INTROITUS. Cervix: no lesion, no contact bleeding Bimanual: no ut/adnx mass/tenderness Pap smear with HPV co-testing sent Additional swabs:not indicated LABS: reviewed and notable for CALCULATED LDL 162 mg/dL 08/03/2023 10:10 ____ CHOLESTEROL 216 H mg/dL 08/03/2023 10:10 HGA1C 5.3 % 08/03/2023 10:10 WBC 7.4 10*3/uL 08/03/2023 10:10 RBC 4.01 [...] 10:10 ATYPICAL LYMPHOCYTES 2.6 % 08/03/2023 10:10 SODIUM 138 mEq/L 08/03/2023 10:10 POTASSIUM 4.1 mEq/L 08/03/2023 10:10 CHLORIDE 106 mEq/L 08/03/2023 10:10 UREA NITROGEN 9.5 mg/dL 08/03/2023 10:10 CREATININE 0.73 mg/dL 08/03/2023 10:10 CALCIUM 9.6 mg/dL 08/03/2023 10:10 PROTEIN 7.2 g/dL 08/03/2023 10:10 ALBUMIN 4.6 g/dL 08/03/2023 10:10 ALKALINE PHOSPHATASE 69 U/L 08/03/2023 10:10 ALT/SGPT 19 U/L 08/03/2023 10:10 AST/SGOT 20 U/L 08/03/2023 10:10 TOTAL BILIRUBIN 0.3 mg/dL 08/03/2023 10:10 CARBON DIOXIDE 24 mEq/L 08/03/2023 10:10 GLUCOSE 88 mg/dL 08/03/2023 10:10 EGFR (CKD-EPI 2020) 93.5 08/03/2023 10:10 No data available for: uACR (STL) No VITAMIN D 25 HYDROXY EO data found IMAGING Imaging impressions No data available HEALTH MAINTENANCE see last PCP progress note ASSESSMENT & PLAN: CERVICAL CANCER SCREENING - -LMP: postmenopausal -Last pap: 2019 NILM neg HPV -STI risk factors: none, declines testing today -CYTOLOGY AND HPV OBTAINED AND SENT TO PATHOLOGY TODAY OSTEOPOROSIS PREVENTION -1000-1200mg/day of calcium -1000 IU/day of vitamin D - Exercise and fall prevention RTC as scheduled with PCP Amalia Drew M.D. Physician, Internal Medicine Primary Care Team C6 PCP 01/22/25 10:00 am DEEPTI-PACT C9 PCP [phone] Time Spent: 30 min Chart Review: 5 min Time with patient: 15 min Post-visit care: 10 min REMINDERS Cervical Cancer Screening - L,N,P,PH,U: A Cervical cytology and HPV test was obtained at this encounter. /marianna DREW MD STAFF PHYSICIAN Signed: 09/13/2024 11:43 09/20/2024 ADDENDUM STATUS: COMPLETED Called patient with result of pap smear neg cytology neg HPV. She had no further questions or concerns. /marianna DREW MD STAFF PHYSICIAN Signed: 09/20/2024 16:00 09/20/2024 ADDENDUM STATUS: COMPLETED PAP Smear Review Results - L,N,P,PH: Pap Smear Collected: 09/13/2024 Lab Accession #: [id number] Specimen: This report indicates: NEM (No Evidence of Malignancy) Notified the patient of PAP smear results. The Pap smear was normal (no evidence of malignancy (NEM)). Next Pap 5 years. Patient notified: Phone Call /marianna DREW MD STAFF PHYSICIAN Signed: 09/20/2024 16:09 RAJENDRAAMALIA [facility] Sep 13, 2024 11:10 AM NURSING NOTE: LOCAL TITLE: V15 PACT FACE TO FACE NOTE ST STANDARD TITLE: NURSING NOTE DATE OF NOTE: SEP 13, 2024@11:10 ENTRY DATE: SEP 13, 2024@11:10:45 AUTHOR: SHELIA CRESPO EXP COSIGNER: URGENCY: STATUS: COMPLETED Provider Visit: Patient Identifiers : Full Name Date of Reason for visit: Other: Women's health exam Mode of Arrival: Ambulatory Allergy Review: PENICILLIN, SULFA DRUGS Allergy list reviewed and remains current. Recent Vital Signs: Temperature: 97.4 F [36.3 C] (09/13/2024 11:06) Pulse: 66 (09/13/2024 11:06) Respiration: 16 (09/13/2024 11:06) B/P: 123/65 (09/13/2024 11:06) Pain: 0 (09/13/2024 11:06) Wt: 127.1 lb [57.65 kg] (09/13/2024 11:06) Ht: 62 in [157.5 cm] (08/28/2023 09:56) BMI: 23.3 POX: 98% (09/13/2024 11:06) Would you like to discuss any personal problem, family problem, alcohol use, drug use, or a mental or emotional illness? No Contact provided Primary Care phone number and encouraged to call if any questions or concerns. Review that after hours nurse line [phone] and emergency room are available 05/06 for patient use. Contact verbalized good understanding. /anastacio/ SHELIA CRESPO LPN LICENSED PRACTICAL NURSE Signed: 09/13/2024 11:12 SHELIA CRESPO [facility]
--- OUTSIDE RECORDS SUMMARY | 2024-11-22 22:23 | XMS_ITS | Encounter Summary ---
Author Name [facility] [place] Address [address] [place] [address] Care Team Providers Care Doctor Of Naprapathic Medicine Name Role Phone ROSS JACKIE Primary Care [...] Relationship to Policy Noble [facility] Mar 12, 2010 Jun 18, 2027 [facility] [id number] [phone] ANNE JIMENEZ PATIENT [facility] Mar 12, 2010 Jun 18, 2027 [facility] [id number] [phone] ANNE JIMENEZ PATIENT Selected Encounter This section includes the information on record at [place] for the Encounter. Date/Time Encounter Type Encounter Description Reason Pro vider Source Jul 30, 2024 02:16 PM Outpatient Encounter ADMIN PAT ACTIVTIES (ARNELNONCT) IHE Encounter Template Text not used by [place] Plan of Treatment: Future Appointments (+ 6 [...] 20 appointments. The data comes from all [facility]. Appointment Date/Time Appointment Type Appointme nt Facility Name Aug 29, 2024 10:32 AM AMBULATORY - NONE [facility] Sep 13, 2024 11:00 AM AMBULATORY - MEDICINE [facility] Nov 21, 2024 10:00 AM AMBULATORY - MEDICINE [facility] Nov 21, 2024 10:30 AM AMBULATORY MEDICINE [facility] Active, Pending, and Scheduled Orders This section includes a listing of several types of active, pending, and scheduled orders, including clinic medications orders, diagnostic test orders, procedure orders and consult orders; where the start date of the order is 45 days before the date of the Encounter or 45 days after the date of theEncounter. The data comes from all [facility]. Test Date/Time Test Type Test Details Facility Name Jul 25, 2024 12:00 AM Laboratory - Chemistry Order LIPID PANEL (STL) GREEN LI/HEP BLD/PLAS PLASMA [facility] Jul 25, 2024 12:00 AM Laboratory - Chemistry Order HGA1C BLOOD [facility] Jul 25, 2024 12:00 AM Laboratory - Chemistry Order TSH (MA-PB) GOLD/RED SST SERUM [facility] Jul 25, 2024 12:00 AM Laboratory - Chemistry Order COMPREHENSIVE METABOLIC PANEL GREEN LI/HEP BLD/PLAS PLASMA [facility] Lab Results: +/- 30 days of the encounter This section includes the Chemistry and Hematology Lab Results on record with [place] for the patient. Radiology Reports and Pathology Reports are provided separately, in subsequent sections. Lab Results This section contains the Chemistry/Hematology Results that were resulted 30 days before or 30 daysafter the date of the Encounter. Date/Time Source Result Type Result - Unit Interpretation Reference Range Comment Aug 27, 2024 12:00 PM [facility] OCCULT BLOOD FIT X1 SCREEN Specimen Type: FECES No comment entered. Ordering Provider: JACKIE HAWKINS Report Released Date/Time: Jul 25, 2024 11:20 AM Reporting Lab: [facility] [address] [facility] [id number] Performing Lab: [facility] [address] [facility] [address] OCCULT BLOOD (FIT) #1 OF 1 Negative Negative Social History: Smoking Status (Most current) and Tobacco Use (All prior to encounter date) This section includes the most current, and the historical, smoking and tobacco- related health factors from the [place] facility where the Encounter took place. Current Smoking Status This section includes the most current smoking, or tobacco-related health factor, from the [place] facility where the Encounter took place. Date/Time Current Smoking Status Comment Facil ity Jul 25, 2024 10:30 AM VA-TOBACCO USER EVERY DAY [facility] Tobacco Use History This section includes a history of the smoking, or tobacco-related health factors, that were collected on or before the date of the Encounter. The data comes from the [place] facility where the Encounter took place. Date/Time Smoking Status/Tobacco Use Comment F acility Jul 25, 2024 10:30 AM VA-TOBACCO USE ADVICE [facility] Jul 25, 2024 10:30 AM VA-TOBACCO USE TEST MAN NO [facility] Jul 25, 2024 10:30 AM VA-TOBACCO USE MED NO [facility] Jul 25, 2024 10:30 AM VA-TOBACCO USE WI 30 MIN OF WAKEUP [facility] Jul 25, 2024 10:30 AM VA-TOBACCO USER EVERY DAY [facility] Jul 26, 2023 10:00 AM VA-TOBACCO USE 30 YEARS OR MORE [facility] Jul 26, 2023 10:00 AM VA-TOBACCO USE ADVICE [facility] Jul 26, 2023 10:00 AM VA-TOBACCO USE TEST MAN NO [facility] Jul 26, 2023 10:00 AM VA-TOBACCO USE MED NO [facility] Jul 26, 2023 10:00 AM VA-TOBACCO USE WI 30 MIN OF WAKEUP [facility] Jul 26, 2023 10:00 AM VA-TOBACCO USER EVERY DAY [facility] Jul 21, 2022 11:00 AM VA-TOBACCO USE 30 YEARS OR MORE [facility] Jul 21, 2022 11:00 AM VA-TOBACCO USE ADVICE [facility] Jul 21, 2022 11:00 AM VA-TOBACCO USE TEST MAN NO [facility] Jul 21, 2022 11:00 AM VA-TOBACCO USE MED NOTIFY PROVIDER [facility] Jul 21, 2022 11:00 AM VA-TOBACCO USE MED YES [facility] Jul 21, 2022 11:00 AM VA-TOBACCO USE WI 30 MIN OF WAKEUP [facility] Jul 21, 2022 11:00 AM VA-TOBACCO USER EVERY DAY [facility] Jan 13, 2020 10:39 AM VA-TOBACCO USE 30 YEARS OR MORE [facility] Jan 13, 2020 10:39 AM VA-TOBACCO USE ADVICE [facility] Jan 13, 2020 10:39 AM VA-TOBACCO USE TEST MAN NO [facility] Jan 13, 2020 10:39 AM VA-TOBACCO USE MED YES [facility] Jan 13, 2020 10:39 AM VA-TOBACCO USE WI 30 MIN OF WAKEUP [facility] Jan 13, 2020 10:39 AM VA-TOBACCO USER EVERY DAY [facility] Feb 05, 2019 10:32 AM TOBACCO OFFERED PT MEDS (PROVIDER) [facility] Dec 18, 2018 11:00 AM TOBACCO MEDS OFFER ED BUT DECLINED [facility] Dec 18, 2018 11:00 AM VA-TOBACCO USE > 1 5 LESS THAN 30 YEARS [facility] Dec 18, 2018 11:00 AM VA-TOBACCO USE ADVICE [facility] Dec 18, 2018 11:00 AM VA-TOBACCO USE TEST MAN NO [facility] Dec 18, 2018 11:00 AM VA-TOBACCO USE MED NOTIFY PROVIDER [facility] Dec 18, 2018 11:00 AM VA-TOBACCO USE WI 30 MIN OF WAKEUP [facility] Dec 18, 2018 11:00 AM VA-TOBACCO USER EVERY DAY [facility] Encounter Notes: All associated encounter notes This section contains the clinical notes associated to the Encounter. Date/Time Encounter Note(s) Provider Source Jul 30, 2024 02:16 PM ADMINISTRATIVE NOT E: LOCAL TITLE: SCHEDULING NOTE [facility] STANDARD TITLE: ADMINISTRATIVE NOTE DATE OF NOTE: JUL 30, 2024@14:16 ENTRY DATE: JUL 30, 2024@14:16:47 AUTHOR: ALEX MCDONOUGH EXP COSIGNER: URGENCY: STATUS: COMPLETED Minimum Scheduling attempts to contact the [place] have been made. RTC/Appt/Consult request will be discontinued after 14 days. Clinic: [facility] W3 PCP 1 BRANDON: Jul Additional comments: CALLED PT TO MAKE APPT,PT DECLINED TO MAKE APPT SHE WILL GO TO HOSPITAL NEAR HER HOME ADDITIONAL RESULTS FROM SCHEDULING ATTEMPTS: Spoke with /Caregiver /anastacio/ ALEX MCDONOUGH Signed: 07/30/2024 14:18 ALEX MCDONOUGH [facility]
--- OUTSIDE RECORDS SUMMARY | 2024-11-22 22:23 | XMS_ITS | Encounter Summary ---
Author Name Department of [place] Organization [facility] Address [address] [place] [address] Care Team Providers Care Groover And Striper Operator Name Role Phone JACKIE HAWKINS Primary Care [...] Patient's Relationship to Policy Noble [facility] Mar 12, 2010 Jun 18, 2027 [facility] [id number] [phone] ANNE HUNT PATIENT [facility] Mar 12, 2010 Jun 18, 2027 [facility] [id number] [phone] ANNE HUNT PATIENT Selected Encounter This section includes the information on record at [place] for the Encounter. Date/Time Encounter Type Encounter Description Reason Pro vider Source May 06, 2024 08:50 AM Outpatient Encounter MENTAL HEALTH [facility] IHE Encounter Template Text not used by [place] Plan of Treatment: Future Appointments (+ 6 [...] 20 appointments. The data comes from all [place] treatment facilities. Appointment Date/Time Appointment Type Appointme nt Facility Name Jun 05, 2024 10:30 AM AMBULATORY - MEDICINE [facility] Jul 08, 2024 09:45 AM AMBULATORY - REHAB MEDICIN E [facility] Jul 08, 2024 10:00 AM AMBULATORY - SURGERY [facility] Jul 25, 2024 10:30 AM AMBULATORY - MEDICINE [facility] Aug 29, 2024 10:32 AM AMBULATORY - NONE . [facility] Sep 13, 2024 11:00 AM AMBULATORY - MEDICINE [facility] Lab Results: +/- 30 days of the encounter This section includes the Chemistry and Hematology Lab Results on record with VA for the patient. Radiology Reports and Pathology Reports are provided separately, in subsequent sections. Lab Results This section contains the Chemistry/Hematology Results that were resulted 30 days before or 30 daysafter the date of the Encounter. Date/Time Source Result Type Result - Unit Interpretation Reference Range Comment Apr 18, 2024 09:50 AM [facility] I-STAT, CREAT (STL-MA) Specimen Type: BLOOD Comment: Test Performed by: [id number] Meter #: [id number] Ordering Provider: JACKIE HAWKINS Report Released Date/Time: Apr 18, 2024 09:52 AM Reporting Lab: [place] [address] [facility] [id number] Performing Lab: [address] [id number] I-STAT, CREAT (STL-MA) 0.5 mg/dL L 0.7-1.3 Social History: Smoking Status (Most current) and Tobacco Use (All prior to encounter date) This section includes the most current, and the historical, smoking and tobacco- related health factors from the [place] facility where the Encounter took place. Current Smoking Status This section includes the most current smoking, or tobacco-related health factor, from the [place] facility where the Encounter took place. Date/Time Current Smoking Status Comment Facil ity Jul 26, 2023 10:00 AM VA-TOBACCO USER EVERY DAY [facility] Tobacco Use History This section includes a history of the smoking, or tobacco-related health factors, that were collected on or before the date of the Encounter. The data comes from the [place] facility where the Encounter took place. Date/Time Smoking Status/Tobacco Use Comment F acility Jul 26, 2023 10:00 AM VA-TOBACCO USE ADVICE [facility] Jul 26, 2023 10:00 AM VA-TOBACCO USE MANAGER RESOURCE NO [facility] Jul 26, 2023 10:00 AM VA-TOBACCO USE MED NO [facility] Jul 26, 2023 10:00 AM VA-TOBACCO USE WI 30 MIN OF WAKEUP [facility] Jul 26, 2023 10:00 AM VA-TOBACCO USER EVERY DAY [facility] Jul 21, 2022 11:00 AM VA-TOBACCO USE 30 YEARS OR MORE [facility] Jul 21, 2022 11:00 AM VA-TOBACCO USE ADVICE [facility] Jul 21, 2022 11:00 AM VA-TOBACCO USE MANAGER RESOURCE NO [facility] Jul 21, 2022 11:00 AM VA-TOBACCO USE MED NOTIFY PROVIDER [facility] Jul 21, 2022 11:00 AM VA-TOBACCO USE MED YES [facility] Jul 21, 2022 11:00 AM VA-TOBACCO USE WI 30 MIN OF WAKEUP [facility] Jul 21, 2022 11:00 AM VA-TOBACCO USER EVERY DAY [facility] Jan 13, 2020 10:39 AM VA-TOBACCO USE 30 YEARS OR MORE [facility] Jan 13, 2020 10:39 AM VA-TOBACCO USE ADVICE [facility] Jan 13, 2020 10:39 AM VA-TOBACCO USE MANAGER RESOURCE NO [facility] Jan 13, 2020 10:39 AM VA-TOBACCO USE MED YES [facility] Jan 13, 2020 10:39 AM VA-TOBACCO USE WI 30 MIN OF WAKEUP [facility] Jan 13, 2020 10:39 AM VA-TOBACCO USER EVERY DAY [facility] Feb 05, 2019 10:32 AM TOBACCO OFFERED PT MEDS (PROVIDER) [facility] Dec 18, 2018 11:00 AM TOBACCO MEDS OFFER ED BUT DECLINED [facility] Dec 18, 2018 11:00 AM VA-TOBACCO USE > 1 5 LESS THAN 30 YEARS [facility] Dec 18, 2018 11:00 AM VA-TOBACCO USE ADVICE [facility] Dec 18, 2018 11:00 AM VA-TOBACCO USE MANAGER RESOURCE NO [facility] Dec 18, 2018 11:00 AM VA-TOBACCO USE MED NOTIFY PROVIDER [facility] Dec 18, 2018 11:00 AM VA-TOBACCO USE WI 30 MIN OF WAKEUP [facility] Dec 18, 2018 11:00 AM VA-TOBACCO USER EVERY DAY [facility] Radiology Reports: +/- 30 days of the [...] the Encounter. The data comes from all [place] treatment facilities. Date/Time Radiology Report Provider Source Jun 05, 2024 10:14 AM FNA BIOPSY INCLUDI NG US GUIDANCE, FIRST LESION: ADRI HUNT ABBY [id number] -1960 F Exm Date: JUN 05, 2024@10:14 Req Phys: JACKIE HAWKINS Pat Loc: DEEPTI-IR E-CONSULT (Req'g Loc) Img Loc: DEEPTI-ANGIO/INTERVENTIONAL Service: Unknown [facility] [address] [place] [address] (Case [id number] COMPLETE) FNA BIOPSY INCLUDING US GUIDANCE,(ANI Detailed) CPT:94227 Reason for Study: FNA left neck mass Clinical History: Report Status: Verified Date Reported: JUN 05, 2024 Date Verified: JUN 05, 2024 Supervisor Metal Furniture Assembly E-Sig:/KATY/HILARIO ADLTON M.D. Report: \H\History: \N\Indeterminate left neck nodule [...] DALTON M.D., Physician, Vascular & Interventional Rad (Supervisor Metal Furniture Assembly) / HILARIO DALTON [facility] Apr 18, 2024 09:[address] NECK SOFT TISSU E W/CONT: ADRI HUNT [id number] -1960 F Exm Date: APR 18, 2024@09:32 Req Phys: MARGUERITE FONG Loc: DEEPTI-PACT C9 PCP (Req'g Loc) Img Loc: DEEPTI-CT IMAGING DEEPTI Service: Unknown [facility], [facility] [address] [place] [address] (Case [id number] COMPLETE) CT NECK SOFT TISSUE W/CONT (CT Detailed) CPT:78963 Contrast Media : Non-ionic Iodinated Reason for Study: Neck/soft tissue mass Clinical History: Responsible Attending: Jackie Real (Marguerite Fong MD covering) Attending Contact Number: [phone] Resident Contact Number: recently has a neck u/S, which recommended follow up CT neck with contrast. Please see recent U/S report/images in [facility]. Allergies listed in CPRS chart: PENICILLIN, SULFA DRUGS Creatinine: CREATININE 0.73 mg/dL 08/03/2023 10:10 /eGFR: STL EGFR (within one year). CREATININE 0.73 mg/dL (08/03/23 10:10) Wt: 120.1 lb [54.48 kg] (01/23/2024 10:26) History of: Renal failure, chronic or acute renal disease: NO Report Status: Verified Date Reported: APR 18, 2024 Date Verified: APR 18, 2024 Supervisor Metal Furniture Assembly E-Sig:/ES/CHANDAN DURANT Report: INDICATION: Neck/soft tissue mass COMPARISON:Ultrasound 03/09/2024. [...] intracranial enhancement. No suspicious orbital mass. Visualized addictions counselor spaces are normal. Visualized pharynx, retropharynx, and parapharyngeal spaces are normal. Normal larynx. Scattered nonspecific subcentimeter lymph nodes. Impression: Questionable hypodensity in the inferior aspect of the left parotid gland as discussed above may represent a true lesion or a pseudolesion. Consultation with interventional radiology and ultrasound guided tissue sampling is recommended. Primary Interpreting Staff: CHANDAN DURANT, RADIOLOGIST (Supervisor Metal Furniture Assembly) /CHANDAN TRIPP [facility] Encounter Notes: All associated encounter notes This section contains the clinical notes associated to the Encounter. Date/Time Encounter Note(s) Provider Source May 06, 2024 08:50 AM PHYSICIAN LETTERS: LOCAL TITLE: NO SHOW LETTER ST STANDARD TITLE: PHYSICIAN LETTERS DATE OF NOTE: MAY 06, 2024@08:50 ENTRY DATE: MAY 06, 2024@08:50:27 AUTHOR: STEPHON RODRIGUEZ COSIGNER: URGENCY: STATUS: COMPLETED [facility] [address] [place] [address] MAY 06, 2024 ADRI HUNT [address] [place], [place] [address] Dear Adri Hunt, Thank you for choosing the [facility] as your primary choice for health care. As a partner in your health care, we are attempting to contact you because our records indicate that you did not make it to your scheduled appointment, and we would like to re-schedule. Please call us at [phone], extension [phone] to speak to us regarding making an appointment in the Mental Health clinic. Your good health is important to us. Please contact us as soon as possible to reschedule your appointment so we can keep your current referral, or to let us know the appointment is no longer needed. If we do not hear back from you within two weeks, we will assume the appointment is not needed at this time. IMPORTANT: Due to COVID-19 we have greatly expanded our telehealth options, please contact the clinic to inquire about scheduling. Sincerely, STEPHON RODRIGUEZ Advance Electrical Engineering Designer ADRI HUNT MARIE LEOLA G [facility]
--- OUTSIDE RECORDS SUMMARY | 2024-11-22 22:23 | XMS_ITS | Encounter Summary ---
Author Name Department of Vetera Affairs ([place]) Organization Department of [place] Address [address] [place] [address] Care Team Providers Care Auto Body Worker Name Role Phone PATRICK JOHNSON Primary Care [...] Name Patient's Relationship to Policy Noble [facility] Mar 12, 2010 Jun 18, 2027 [facility] [id number] [phone] ANNE JIMENEZ PATIENT [facility]UM RX [facility] Mar 12, 2010 Jun 18, 2027 [facility] [id number] [phone] ANNE JIMENEZ PATIENT Selected Encounter This section includes the information on record at [place] for the Encounter. Date/Time Encounter Type Encounter Description Reason Pro vider Source Jun 14, 2024 11:52 AM Outpatient Encounter TELEPHONE/ANCILLARY IHE Encounter Template Text not used by [place] Plan of Treatment: Future Appointments (+ 6 [...] 20 appointments. The data comes from all [facility]. Appointment Date/Time Appointment Type Appointme nt Facility Name Jul 08, 2024 09:45 AM AMBULATORY - REHAB MEDICIN E [facility] Jul 08, 2024 10:00 AM AMBULATORY - SURGERY [facility] Jul 25, 2024 10:30 AM AMBULATORY - MEDICINE [facility] Aug 29, 2024 10:32 AM AMBULATORY - NONE . [facility] Sep 13, 2024 11:00 AM AMBULATORY - MEDICINE [facility] Nov 21, 2024 10:00 AM AMBULATORY - MEDICINE [facility] Nov 21, 2024 10:30 AM AMBULATORY - MEDICINE [facility] Active, Pending, and Scheduled Orders This section includes a listing of several types of active, pending, and scheduled orders, including clinic medications orders, diagnostic test orders, procedure orders and consult orders; where the start date of the order is 45 days before the date of the Encounter or 45 days after the date of theEncounter. The data comes from all [facility]. Test Date/Time Test Type Test Details Facility Name Jul 25, 2024 12:00 AM Laboratory - Chemistry Order LIPID PANEL (STL) GREEN LI/HEP BLD/PLAS [facility] Jul 25, 2024 12:00 AM Laboratory - Chemistry Order [id number] BLOOD SP [facility] Jul 25, 2024 12:00 AM Laboratory - Chemistry Order TSH (MA-PB) GOLD/RED SST SERUM SP [facility] Jul 25, 2024 12:00 AM Laboratory - Chemistry Order COMPREHENSIVE METABOLIC PANEL GREEN LI/HEP BLD/PLAS [facility] Social History: Smoking Status (Most current) and Tobacco Use (All prior to encounter date) This section includes the most current, and the historical, smoking and tobacco- related health factors from the [place] facility where the Encounter took place. Current Smoking Status This section includes the most current smoking, or tobacco-related health factor, from the [place] facility where the Encounter took place. Date/Time Current Smoking Status Comment Facil ity Jul 26, 2023 10:00 AM VA-TOBACCO USER EVERY DAY [facility] Tobacco Use History This section includes a history of the smoking, or tobacco-related health factors, that were collected on or before the date of the Encounter. The data comes from the [place] facility where the Encounter took place. Date/Time Smoking Status/Tobacco Use Comment F acility Jul 26, 2023 10:00 AM VA-TOBACCO USE ADVICE [facility] Jul 26, 2023 10:00 AM VA-TOBACCO USE SNAP ATTACHER NO [facility] Jul 26, 2023 10:00 AM VA-TOBACCO USE MED NO [facility] Jul 26, 2023 10:00 AM VA-TOBACCO USE WI 30 MIN OF WAKEUP [facility] Jul 26, 2023 10:00 AM VA-TOBACCO USER EVERY DAY [facility] Jul 21, 2022 11:00 AM VA-TOBACCO USE 30 YEARS OR MORE [facility] Jul 21, 2022 11:00 AM VA-TOBACCO USE ADVICE [facility] Jul 21, 2022 11:00 AM VA-TOBACCO USE SNAP ATTACHER NO [facility] Jul 21, 2022 11:00 AM VA-TOBACCO USE MED NOTIFY PROVIDER [facility] Jul 21, 2022 11:00 AM VA-TOBACCO USE MED YES [facility] Jul 21, 2022 11:00 AM VA-TOBACCO USE WI 30 MIN OF WAKEUP [facility] Jul 21, 2022 11:00 AM VA-TOBACCO USER EVERY DAY [facility] Jan 13, 2020 10:39 AM VA-TOBACCO USE 30 YEARS OR MORE [facility] Jan 13, 2020 10:39 AM VA-TOBACCO USE ADVICE [facility] Jan 13, 2020 10:39 AM VA-TOBACCO USE SNAP ATTACHER NO [facility] Jan 13, 2020 10:39 AM VA-TOBACCO USE MED YES [facility] Jan 13, 2020 10:39 AM VA-TOBACCO USE WI 30 MIN OF WAKEUP [facility] Jan 13, 2020 10:39 AM VA-TOBACCO USER EVERY DAY [facility] Feb 05, 2019 10:32 AM TOBACCO OFFERED PT MEDS (PROVIDER) [facility] Dec 18, 2018 11:00 AM TOBACCO MEDS OFFER ED BUT DECLINED [facility] Dec 18, 2018 11:00 AM VA-TOBACCO USE > 1 5 LESS THAN 30 YEARS [facility] Dec 18, 2018 11:00 AM VA-TOBACCO USE ADVICE [facility] Dec 18, 2018 11:00 AM VA-TOBACCO USE SNAP ATTACHER NO [facility] Dec 18, 2018 11:00 AM VA-TOBACCO USE MED NOTIFY PROVIDER [facility] Dec 18, 2018 11:00 AM VA-TOBACCO USE [place] 30 MIN OF WAKEUP [facility] Dec 18, 2018 11:00 AM VA-TOBACCO USER EVERY DAY [facility] Radiology Reports: +/- 30 days [...] the Encounter. The data comes from all [place] treatment facilities. Date/Time Radiology Report Provider Source Jun 05, 2024 10:14 AM FNA BIOPSY INCLUDI NG US GUIDANCE, FIRST LESION: ADRI JIMENEZ ABBY [id number] -1960 F Exm Date: JUN 05, 2024@10:14 Req Phys: PATRICK JOHNSON Pat Loc: DEEPTI-IR E-CONSULT (Req'g Loc) Img Loc: DEEPTI-ANGIO/INTERVENTIONAL Service: Unknown [facility] [address] [facility] [place] [facility] [place] [address] (Case [id number] COMPLETE) FNA BIOPSY INCLUDING US GUIDANCE,(ANI Detailed) CPT:09758 Reason for Study: FNA left neck mass Clinical History: Report Status: Verified Date Reported: JUN 05, 2024 Date Verified: JUN 05, 2024 Financial Systems Administrator E-Sig:/KATY/HILARIO DALTON M.D. Report: \H\History: \N\Indeterminate left [...] Vascular & Interventional Rad (Stefano) /HILARIO RENTERIA [facility] Pathology Reports: +/- 30 days of [...] the Encounter. The data comes from all [place] treatment facilities. Date/Time Pathology Report Provider Source [...] MASS FINE NEEDLE ASPIRATION ON ADRI JIMENEZ [id number]. 2 PASSES PERFORMED WITH 2 PAP STAINED [...] Performing Laboratory: Cytology Report Performed By: [address]# [id number] [address] [place] [id number] [place] [address] $FTR - - - - - - - - - - - - - - - - - - - - - - - - - - - - - - - - - - - - - - - - (End of report) ARNOL PINEDO MD Date Jun 06, 2024 - - - - - - - - - - - - - - - - - - - - - - - - - - - - - - - - - - - - - - - - ADRI JIMENEZ STANDARD FORM 515 ID:[id number] SEX:F :1960 AGE: 63 LOC:APFEE PCP: Patrick Johnson MD /katy/ ARNOL PINEDO PATHOLOGIST Signed: 06/06/2024 13:03 ARNOL PINEDO [facility] Encounter Notes: All associated encounter notes This section contains the clinical notes associated to the Encounter. Date/Time Encounter Note(s) Provider Source Jun 14, 2024 11:52 AM MENTAL HEALTH ADMINISTRATIVE NOTE: LOCAL TITLE: MHTC ASSIGNMENT/REASSIGNMENT NOTE ST STANDARD TITLE: MENTAL HEALTH ADMINISTRATIVE NOTE DATE OF NOTE: JUN 14, 2024@11:52 ENTRY DATE: JUN 14, 2024@11:52:55 AUTHOR: LB PANCHAL EXP COSIGNER: URGENCY: STATUS: COMPLETED MHTC Initial Assignment This note documents the initial assignment of the [place] Report Developer (MHTC) on Jun. The [place] new Mental Health Ssrs Report Developer is: MHTC Name: Luciana Avalos MHTC Contact information: Office Phone:[phone] Other contact: The assignment of the MHTC and education on the role of the MHTC in the [place] mental health care was discussed with the , who verbally concurred with the new assignment. The MHTC's contact information was provided to the . The [place] CPRS chart (i.e., PCMM) and MH Treatment Plan have been updated to reflect the new MHTC Assignment. The 's new MHTC, along with the previous MHTC if applicable, are included as additional signers on this note. The undersigned of this note is not the 's new MHTC. The [place] and/or [place] Family has had or is scheduled to have contact with the newly assigned MHTC:Luciana Avalos . /katy/ LB PANCHAL Registered Nurse, [facility] Ext [phone] Signed: 06/14/2024 11:53 LB PANCHAL [facility]
--- OUTSIDE RECORDS SUMMARY | 2024-11-22 22:23 | XMS_ITS | Encounter Summary ---
Author Name Department of Vetera Affairs ([place]) Organization [place] of [place] Address [address] [place] [address] Care Team Providers Care Waterproof Coating Machine Tender Name Role Phone JACKIE HAWKINS Primary Care [...] Noble's Name Patient's Relationship to Policy Noble [facility] Mar 12, 2010 Jun 18, 2027 [facility] [id number] [phone] ANNE JIMENEZ PATIENT [facility] RX [facility] Mar 12, 2010 Jun 18, 2027 [facility] [id number] [phone] ANNE JIMENEZ PATIENT Selected Encounter This section includes the information on record at [place] for the Encounter. Date/Time Encounter Type Encounter Description Reason Pro vider Source IHE Encounter Template Text not used by [place]
--- OUTSIDE RECORDS SUMMARY | 2024-11-22 22:23 | XMS_ITS | Encounter Summary ---
Author Name [place] Organization [place] Address [address] [place] [address] Care Team Providers Care Program Manager Rn Name Role Phone JACKIE JOHNSON Primary Care [...] Patient's Relationship to Policy Noble [facility] Mar 12, 2010 Jun 18, 2027 [facility] [id number] [phone] ANNE JIMENEZ PATIENT [facility] Mar 12, 2010 Jun 18, 2027 [facility] [id number] [phone] ANNE JIMENEZ PATIENT Selected Encounter This section includes the information on record at [place] for the Encounter. Date/Time Encounter Type Encounter Description Reason Provider Source Jun 06, 2024 01:03 PM Outpatient Encounter EVENT (HISTORICAL) ARNOL PINEDO Encounter Template Text not used by [place] Plan of Treatment: Future Appointments (+ 6 [...] 20 appointments. The data comes from all [place] treatment facilities. Appointment Date/Time Appointment Type Appointme nt Facility Name Jul 08, 2024 09:45 AM AMBULATORY - REHAB MEDICIN E [facility] Jul 08, 2024 10:00 AM AMBULATORY - SURGERY [facility] Jul 25, 2024 10:30 AM AMBULATORY - MEDICINE [facility] Aug 29, 2024 10:32 AM AMBULATORY - NONE [facility] Sep 13, 2024 11:00 AM AMBULATORY - MEDICINE [facility] Nov 21, 2024 10:00 AM AMBULATORY - MEDICINE [facility] Nov 21, 2024 10:30 AM AMBULATORY - MEDICINE [facility] Social History: Smoking Status (Most current) and Tobacco Use (All prior to encounter date) This section includes the most current, and the historical, smoking and tobacco- related health factors from the [place] facility where the Encounter took place. Current Smoking Status This section includes the most current smoking, or tobacco-related health factor, from the [place] facility where the Encounter took place. Date/Time Current Smoking Status Comment Alexandra ity Jul 26, 2023 10:00 AM [place]-TOBACCO USER EVERY DAY [facility] Tobacco Use History This section includes a history of the smoking, or tobacco-related health factors, that were collected on or before the date of the Encounter. The data comes from the [place] facility where the Encounter took place. Date/Time Smoking Status/Tobacco Use Comment F acility Jul 26, 2023 10:00 AM VA-TOBACCO USE ADVICE [facility] Jul 26, 2023 10:00 AM VA-TOBACCO USE AMPOULE INSPECTOR NO [facility] Jul 26, [...] Jul 21, 2022 11:00 AM VA-TOBACCO USE AMPOULE INSPECTOR NO [facility] Jul 21, [...] Jan 13, 2020 10:39 AM VA-TOBACCO USE AMPOULE INSPECTOR NO [facility] Jan 13, [...] Dec 18, 2018 11:00 AM VA-TOBACCO USE AMPOULE INSPECTOR NO [facility] Dec 18, 2018 11:00 AM VA-TOBACCO USE MED NOTIFY PROVIDER [facility] Dec 18, 2018 11:00 AM VA-TOBACCO USE WI 30 MIN OF WAKEUP [facility] Dec 18, 2018 11:00 AM VA-TOBACCO USER EVERY DAY [facility] Radiology Reports: +/- 30 days [...] the Encounter. The data comes from all [place] treatment facilities. Date/Time Radiology Report Provider Source Jun 05, 2024 10:14 AM FNA BIOPSY INCLUDI NG US GUIDANCE, FIRST LESION: ADRI JIMENEZ [id number] -1960 F Exm Date: JUN 05, 2024@10:14 Req Phys: JACKIE JOHNSON Loc: DEEPTI-IR E-CONSULT (Req'g Loc) Img Loc: DEEPTI-ANGIO/INTERVENTIONAL Service: [address] [address] (Case [id number] COMPLETE) FNA BIOPSY INCLUDING US GUIDANCE,(ANI Detailed) CPT:60711 Reason for Study: FNA left neck mass Clinical History: Report Status: Verified Date Reported: JUN 05, 2024 Date Verified: JUN 05, 2024 Cutting And Creasing Press Operator E-Sig:/KATY/HILARIO DALTON M.D. Report: \H\History: \N\Indeterminate left [...] DALTON M.D., Physician, Vascular & Interventional Rad (Cutting And Creasing Press Operator) /HILARIO RENTERIA [facility] Pathology Reports: +/- 30 days [...] the Encounter. The data comes from all [place] treatment facilities. Date/Time Pathology Report Provider Source [...] FINE NEEDLE ASPIRATION ON ADRI JIMENEZ ABBY [id number]. 2 PASSES PERFORMED WITH 2 PAP STAINED [...] 2024@13:03 Performing Laboratory: Cytology Report Performed By: [facility]# [id number] [address] [place] [phone] $FTR - - - - - - [...] - - ADRI JIMENEZ STANDARD FORM 515 ID:[id number] SEX:F :1960 AGE: 63 LOC:APFEE PCP: Jackie Johnson MD /katy/ ARNOL PINEDO PATHOLOGIST Signed: 06/06/2024 13:03 ARNOL PINEDO [facility] Encounter Notes: All associated encounter notes This section contains the clinical notes associated to the Encounter. Date/Time Encounter Note(s) Provider Source Jun 06, 2024 01:03 PM PATHOLOGY PROCEDUR E NOTE: LOCAL TITLE: LR CYTOPATHOLOGY REPORT STANDARD TITLE: [...] INFERIOR PAROTID MASS FINE NEEDLE ASPIRATION ON JIMENEZADRI AWAD ABBY [id number]. 2 PASSES PERFORMED WITH 2 PAP STAINED [...] 2024@13:03 Performing Laboratory: Cytology Report Performed By: [facility]# [id number] [address] [place] [phone] $FTR - - - - - - [...] - - ADRI JIMENEZ STANDARD FORM 515 ID:[id number] SEX:F :1960 AGE: 63 LOC:APFEE PCP: Jackie Johnson MD /katy/ ARNOL PINEDO PATHOLOGIST Signed: 06/06/2024 13:03 ARNOL PINEDO [facility]
--- OUTSIDE RECORDS SUMMARY | 2024-11-22 22:23 | XMS_ITS | Encounter Summary ---
Author Name Department [place] Organization [facility] Address [address] [place] [address] Care Team Providers Care Emergency Management System Director Name Role Phone ROSS PATRICK Primary Care [...] Noble's Name Patient's Relationship to Policy Noble [facility] Mar 12, 2010 Jun 18, 2027 [facility] [id number] [phone] ANNE JIMENEZ PATIENT [facility] Mar 12, 2010 Jun 18, 2027 [facility] [id number] [phone] ANNE JIMENEZ PATIENT Selected Encounter This section includes the information on record at [place] for the Encounter. Date/Time Encounter Type Encounter Description Reason Provider Source Jun 03, 2024 02:44 PM HC PRO PHONE CALL 5-10 MIN TELEPHONE/DIAGNOS TIC ICD-10-CM R89.9 Unsp abnormal finding in specimens from oth org/tiss FAYE MADERA IHBing Encounter Template Text not used by [place] Assessments - Encounter Diagnoses This section includes the primary and secondary diagnoses documented for the Encounter. Date/Time Primary/Secondary Diagnosis Diagnosis Name Provider Source Jun 03, 2024 02:44 PM PRIMARY Unsp abnormal finding in specimens from oth org/tiss CHERISE MADERA [facility] Plan of Treatment: Future Appointments (+ 6 months) and Future Tests (+/- 45 days) The Plan of Treatment section includes future care activities for the patient from all [place] [facility]. This section includes future appointments and future orders which are active, pending or scheduled. Future Appointments This section includes appointments that were scheduled to occur 6 months from the date of the Encounter, up to a maximum of 20 appointments. The data comes from all [place] treatment facilities. Appointment Date/Time Appointment Type Appointme nt Facility Name Jun 05, 2024 10:30 AM AMBULATORY - MEDICINE [facility] Jul 08, 2024 09:45 AM AMBULATORY - REHAB MEDICIN E [facility] Jul 08, 2024 10:00 AM AMBULATORY - SURGERY [facility] Jul 25, 2024 10:30 AM AMBULATORY - MEDICINE [facility] Aug 29, 2024 10:32 AM AMBULATORY - NONE [facility] Sep 13, 2024 11:00 AM AMBULATORY - MEDICINE [facility] Nov 21, 2024 10:00 AM AMBULATORY - MEDICINE [facility] Nov 21, 2024 10:30 AM AMBULATORY - MEDICINE [facility] Social History: Smoking Status (Most current) and Tobacco Use (All prior to encounter date) This section includes the most current, and the historical, smoking and tobacco- related health factors from the [place] facility where the Encounter took place. Current Smoking Status This section includes the most current smoking, or tobacco-related health factor, from the [place] facility where the Encounter took place. Date/Time Current Smoking Status Comment Alexandra ity Jul 26, 2023 10:00 AM [place]-TOBACCO USER EVERY DAY [facility] Tobacco Use History This section includes a history of the smoking, or tobacco-related health factors, that were collected on or before the date of the Encounter. The data comes from the [place] facility where the Encounter took place. Date/Time Smoking Status/Tobacco Use Comment F acility Jul 26, 2023 10:00 AM VA-TOBACCO USE ADVICE [facility] Jul 26, 2023 10:00 AM VA-TOBACCO USE DIRECTOR OF INSTRUCTIONAL TECHNOLOGY NO [facility] Jul 26, 2023 10:00 AM VA-TOBACCO USE MED NO [facility] Jul 26, 2023 10:00 AM VA-TOBACCO USE WI 30 MIN OF WAKEUP [facility] Jul 26, 2023 10:00 AM VA-TOBACCO USER EVERY DAY [facility] Jul 21, 2022 11:00 AM VA-TOBACCO USE 30 YEARS OR MORE [facility] Jul 21, 2022 11:00 AM VA-TOBACCO USE ADVICE [facility] Jul 21, 2022 11:00 AM VA-TOBACCO USE DIRECTOR OF INSTRUCTIONAL TECHNOLOGY NO [facility] Jul 21, 2022 11:00 AM VA-TOBACCO USE MED NOTIFY PROVIDER [facility] Jul 21, 2022 11:00 AM VA-TOBACCO USE MED YES [facility] Jul 21, 2022 11:00 AM VA-TOBACCO USE WI 30 MIN OF WAKEUP [facility] Jul 21, 2022 11:00 AM VA-TOBACCO USER EVERY DAY [facility] Jan 13, 2020 10:39 AM VA-TOBACCO USE 30 YEARS OR MORE [facility] Jan 13, 2020 10:39 AM VA-TOBACCO USE ADVICE [facility] Jan 13, 2020 10:39 AM VA-TOBACCO USE DIRECTOR OF INSTRUCTIONAL TECHNOLOGY NO [facility] Jan 13, 2020 10:39 AM VA-TOBACCO USE MED YES [facility] Jan 13, 2020 10:39 AM VA-TOBACCO USE WI 30 MIN OF WAKEUP [facility] Jan 13, 2020 10:39 AM VA-TOBACCO USER EVERY DAY [facility] Feb 05, 2019 10:32 AM TOBACCO OFFERED PT MEDS (PROVIDER) [facility] Dec 18, 2018 11:00 AM TOBACCO MEDS OFFER ED BUT DECLINED [facility] Dec 18, 2018 11:00 AM VA-TOBACCO USE > 1 5 LESS THAN 30 YEARS [facility] Dec 18, 2018 11:00 AM VA-TOBACCO USE ADVICE [facility] Dec 18, 2018 11:00 AM VA-TOBACCO USE DIRECTOR OF INSTRUCTIONAL TECHNOLOGY NO [facility] Dec 18, 2018 11:00 AM VA-TOBACCO USE MED NOTIFY PROVIDER [facility] Dec 18, 2018 11:00 AM VA-TOBACCO USE WI 30 MIN OF WAKEUP [facility] Dec 18, 2018 11:00 AM VA-TOBACCO USER EVERY DAY [facility] Radiology Reports: +/- 30 days of the [...] the Encounter. The data comes from all [place] treatment facilities. Date/Time Radiology Report Provider Source Jun 05, 2024 10:14 AM FNA BIOPSY INCLUDI NG US GUIDANCE, FIRST LESION: ADRI IJMENEZ ABBY [id number] -1960 F Exm Date: JUN 05, 2024@10:14 Req Phys: PATRICK JOHNSON Pat Loc: DEEPTI-IR E-CONSULT (Req'g Loc) Img Loc: DEEPTI-ANGIO/INTERVENTIONAL Service: [address] [address] (Case [id number] COMPLETE) FNA BIOPSY INCLUDING US GUIDANCE,(ANI Detailed) CPT:73005 Reason for Study: FNA left neck mass Clinical History: Report Status: Verified Date Reported: JUN 05, 2024 Date Verified: JUN 05, 2024 Electrostatic Painter E-Sig:/ANASTACIO/HILARIO DALTON M.D. Report: \H\History: \N\Indeterminate left [...] DALTON M.D., Physician, Vascular & Interventional Rad (Electrostatic Painter) /HILARIO RENTERIA [facility] Pathology Reports: +/- 30 days of [...] the Encounter. The data comes from all [place] treatment facilities. Date/Time Pathology Report Provider Source [...] FINE NEEDLE ASPIRATION ON JIMENEZADRI AWAD ABBY [id number]. 2 PASSES PERFORMED WITH 2 PAP STAINED [...] CONSISTENT WITH PLEOMORPHIC ADENOMA - SEE TEREZA /anastacio/ ARNOL PINEDO PATHOLOGIST Signed Jun 06, 2024@13:03 Performing Laboratory: Cytology Report Performed By: [facility]# [id number] [address] [place] [phone] $FTR - - - - - - [...] - - - - - - - IVY JIMENEZFER ABBY STANDARD FORM 515 ID:[id number] SEX:F :1960 AGE: 63 LOC:APFEE PCP: Patrick Johnson MD /anastacio/ ARNOL PINEDO PATHOLOGIST Signed: 06/06/2024 13:03 ARNOL PINEDO [facility] Encounter Notes: All associated encounter notes This section contains the clinical notes associated to the Encounter. Date/Time Encounter Note(s) Provider Source Jun 03, 2024 02:45 PM SURGERY TELEPHONE ENCOUNTER NOTE: LOCAL TITLE: NURSE PRE OP TELELPHONE [facility] STANDARD TITLE: SURGERY TELEPHONE ENCOUNTER NOTE DATE OF NOTE: JUN 03, 2024@14:45 ENTRY DATE: JUN 03, 2024@14:45:30 AUTHOR: BRAYDEN MADERA EXP COSIGNER: URGENCY: STATUS: COMPLETED PRE-OP TELEPHONE TEMPLATE NURSE Patient identified using: Full name Date of Comment:last 4 SS Procedure planned:FNA Left Neck Mass Day of surgery: Comment:Come to 2nd floor registration Do you have any questions about pre-op instructions given to you by the physician? No Arrival time: 10:30 Call time: 5 to 10 minutes of medical discussion /anastacio/ BRAYDEN MADERA RN MSN REGISTERED NURSE Signed: 06/03/2024 14:50 BRAYDEN MADERA [facility]
--- OUTSIDE RECORDS SUMMARY | 2024-11-22 22:23 | XMS_ITS | Encounter Summary ---
Author Name Department [place] Organization [place] Address [address] [place] [address] Care Team Providers Care Player Development Executive Name Role Phone JACKIE HAWKINS Primary Care [...] Noble's Name Patient's Relationship to Policy Noble [facility] Mar 12, 2010 Jun 18, 2027 [facility] [id number] [phone] ANNE HUNT PATIENT [facility] Mar 12, 2010 Jun 18, 2027 [facility] [id number] [phone] ANNE HUNT PATIENT Selected Encounter This section includes the information on record at [place] for the Encounter. Date/Time Encounter Type Encounter Description Reason Provider Source Jul 08, 2024 09:45 AM DIAGNOSTIC LARYNGOSCOPY SPEECH-LANGUAGE PATHOLOGY ICD-10-CM R49.0 Dysphonia JULIETA MADERA [facility] Encounter Template Text not used by [place] Assessments - Encounter Diagnoses This section includes the primary and secondary diagnoses documented for the Encounter. Date/Time Primary/Secondary Diagnosis Diagnosis Name Provider Source Jul 08, 2024 10:36 AM PRIMARY Dysphonia MADERA,JAG M [facility] Plan of Treatment: Future Appointments (+ 6 months) and Future Tests (+/- 45 days) The Plan of Treatment section includes future care activities for the patient from all [place] [facility]. This section includes future appointments and future orders which are active, pending or scheduled. Future Appointments This section includes appointments that were scheduled to occur 6 months from the date of the Encounter, up to a maximum of 20 appointments. The data comes from all [facility]. Appointment Date/Time Appointment Type Appointme nt Facility Name Jul 25, 2024 10:30 AM AMBULATORY - MEDICINE [facility] Aug 29, 2024 10:32 AM AMBULATORY - NONE [facility] Sep 13, 2024 11:00 AM AMBULATORY MEDICINE [facility] Nov 21, 2024 10:00 AM AMBULATORY MEDICINE [facility] Nov 21, 2024 10:30 AM AMBULATORY MEDICINE [facility] Active, Pending, and Scheduled Orders This section includes a listing of several types of active, pending, and scheduled orders, including clinic medications orders, diagnostic test orders, procedure orders and consult orders; where the start date of the order is 45 days before the date of the Encounter or 45 days after the date of theEncounter. The data comes from all [facility]. Test Date/Time Test Type Test Details Facility Name Jul 25, 2024 12:00 AM Laboratory - Chemistry Order LIPID PANEL (STL) GREEN LI/HEP BLD/PLAS PLASMA [facility] Jul 25, 2024 12:00 AM Laboratory - Chemistry Order HGA1C BLOOD [facility] Jul 25, 2024 12:00 AM Laboratory - Chemistry Order TSH (MA-PB) GOLD/RED SST SERUM [facility] Jul 25, 2024 12:00 AM Laboratory - Chemistry Order COMPREHENSIVE METABOLIC PANEL GREEN LI/HEP BLD/PLAS PLASMA [facility] Vital Signs: All taken on the encounter date This section contains inpatient and outpatient Vital Signs collected on the date of the Encounter. Date/Time Temperature Pulse Blood Pressure Respiratory Rate SP02 Pain Height Weight Body Mass Index Source Jul 08, 2024 09:39 AM 97.3 63 114/69 16 98 0 [facility] Social History: Smoking Status (Most current) and Tobacco Use (All prior to encounter date) This section includes the most current, and the historical, smoking and tobacco- related health factors from the [place] facility where the Encounter took place. Current Smoking Status This section includes the most current smoking, or tobacco-related health factor, from the [place] facility where the Encounter took place. Date/Time Current Smoking Status Comment Facil ity Jul 26, 2023 10:00 AM VA-TOBACCO USER EVERY DAY [facility] Tobacco Use History This section includes a history of the smoking, or tobacco-related health factors, that were collected on or before the date of the Encounter. The data comes from the [place] facility where the Encounter took place. Date/Time Smoking Status/Tobacco Use Comment F acility Jul 26, 2023 10:00 AM VA-TOBACCO USE ADVICE [facility] Jul 26, 2023 10:00 AM VA-TOBACCO USE MARKETING COMMUNITY LIAISON NO [facility] Jul 26, 2023 10:00 AM VA-TOBACCO USE MED NO [facility] Jul 26, 2023 10:00 AM VA-TOBACCO USE WI 30 MIN OF WAKEUP [facility] Jul 26, 2023 10:00 AM VA-TOBACCO USER EVERY DAY [facility] Jul 21, 2022 11:00 AM VA-TOBACCO USE 30 YEARS OR MORE [facility] Jul 21, 2022 11:00 AM VA-TOBACCO USE ADVICE [facility] Jul 21, 2022 11:00 AM VA-TOBACCO USE MARKETING COMMUNITY LIAISON NO [facility] Jul 21, 2022 11:00 AM VA-TOBACCO USE MED NOTIFY PROVIDER [facility] Jul 21, 2022 11:00 AM VA-TOBACCO USE MED YES [facility] Jul 21, 2022 11:00 AM VA-TOBACCO USE WI 30 MIN OF WAKEUP [facility] Jul 21, 2022 11:00 AM VA-TOBACCO USER EVERY DAY [facility] Jan 13, 2020 10:39 AM VA-TOBACCO USE 30 YEARS OR MORE [facility] Jan 13, 2020 10:39 AM VA-TOBACCO USE ADVICE [facility] Jan 13, 2020 10:39 AM VA-TOBACCO USE MARKETING COMMUNITY LIAISON NO [facility] Jan 13, 2020 10:39 AM VA-TOBACCO USE MED YES [facility] Jan 13, 2020 10:39 AM VA-TOBACCO USE WI 30 MIN OF WAKEUP [facility] Jan 13, 2020 10:39 AM VA-TOBACCO USER EVERY DAY [facility] Feb 05, 2019 10:32 AM TOBACCO OFFERED PT MEDS (PROVIDER) [facility] Dec 18, 2018 11:00 AM TOBACCO MEDS OFFER ED BUT DECLINED [facility] Dec 18, 2018 11:00 AM VA-TOBACCO USE > 1 5 LESS THAN [address] [facility] Dec 18, 2018 11:00 AM VA-TOBACCO USE ADVICE [facility] Dec 18, 2018 11:00 AM VA-TOBACCO USE MARKETING COMMUNITY LIAISON NO [facility] Dec 18, 2018 11:00 AM VA-TOBACCO USE MED NOTIFY PROVIDER [facility] Dec 18, 2018 11:00 AM VA-TOBACCO USE WI 30 MIN OF WAKEUP [facility] Dec 18, 2018 11:00 AM VA-TOBACCO USER EVERY DAY [facility] Encounter Notes: All associated encounter notes This section contains the clinical notes associated to the Encounter. 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 TRACH STATUS: NO SCOPE: Olympus flexible PROCEDURE: The scope was inserted after application of Lidocaine spray topical anesthesia, the exam completed, and the scope withdrawn without difficulty or complaint. PREVIOUS EXAMS: CURRENT APPEARANCE: TVCs were smooth/even in color and appearance. Airway was widely patent. BOT, epiglottis, and arytenoids were clear. CURRENT FUNCTION: TVCs were mobile, met at midline for phonation, and presented with full adduction and abduction. No voice or swallowing complaint. GOALS: n/a BARRIERS TO ACHIEVEMENT OF GOALS: n/a PLAN: Evaluate as indicated by ENT /anastacio/ JAG MADERA Speech-Language Pathologist Signed: 07/08/2024 10:37 /anastacio/ GINNA GAN MD Staff Physician, Otolaryngology Cosigned: 07/08/2024 13:32 JAG MADERA [facility]
--- OUTSIDE RECORDS SUMMARY | 2024-11-22 22:23 | XMS_ITS | Encounter Summary ---
Author Name [facility] [place] Organization [facility] [place] [facility] [place] Address [address] [place] [address] Care Team Providers Care Middle [employer] Coach Name Role Phone JACKIE HAWKINS Primary Care [...] CHILDREN Mar 12, 2010 Jun 18, 2027 [facility] [phone] ANNE HUNT PATIENT [facility] OPTUM RX [facility] Mar 12, 2010 Jun 18, 2027 [facility] [id number] [phone] ANNE HUNT PATIENT Selected Encounter This section includes the information on record at [place] for the Encounter. Date/Time Encounter Type Encounter Description Reason Provider Source Jul 25, 2024 10:30 AM OFFICE O/P EST MOD 30 MIN PRIMARY CARE/MEDICINE ICD-10-CM F17.200 Nicotine dependence, unspecified, uncomplicated JACKIE HAWKINS IHBing Encounter Template Text not used by [place] Assessments - Encounter Diagnoses This section includes the primary and secondary diagnoses documented for the Encounter. Date/Time Primary/Secondary Diagnosis Diagnosis Name Provider Source Jul 28, 2024 08:15 PM PRIMARY Nicotine dependence, unspecified, uncomplicated JACKIE HAWKINS [facility] Jul 28, 2024 08:15 PM SECONDARY Encounter for immunization RINA PAREKH [facility] Jul 28, 2024 08:15 PM SECONDARY Insomnia, unspecified JACKIE HAWKINS [facility] Jul 28, 2024 08:15 PM SECONDARY Localized swelling, mass and lump, neck [facility] Plan of Treatment: Future Appointments (+ 6 months) and Future Tests (+/- 45 days) The Plan of Treatment section includes future care activities for the patient from all [place] [facility] This section includes future appointments and future orders which are active, pending or scheduled. Future Appointments This section includes appointments that were scheduled to occur 6 months from the date of the Encounter, up to a maximum of 20 appointments. The data comes from all [facility]. Appointment Date/Time Appointment Type Appointme nt Facility Name Aug 29, 2024 10:32 AM AMBULATORY - NONE [facility] Sep 13, 2024 11:00 AM AMBULATORY - MEDICINE [facility] Nov 21, 2024 10:00 AM AMBULATORY - MEDICINE [facility] Nov 21, 2024 10:30 AM AMBULATORY MEDICINE [facility] Active, Pending, and Scheduled Orders This section includes a listing of several types of active, pending, and scheduled orders, including clinic medications orders, diagnostic test orders, procedure orders and consult orders; where the start date of the order is 45 days before the date of the Encounter or 45 days after the date of theEncounter. The data comes from all [facility]. Test Date/Time Test Type Test Details Facility Name Jul 25, 2024 12:00 AM Laboratory - Chemistry Order LIPID PANEL (STL) GREEN LI/HEP BLD/PLAS PLASMA [facility] Jul 25, 2024 12:00 AM Laboratory - Chemistry Order TSH (MA-PB) GOLD/RED SST SERUM SP [facility] Jul 25, 2024 12:00 AM Laboratory - Chemistry Order [id number] BLOOD SP [facility] Jul 25, 2024 12:00 AM Laboratory - Chemistry Order COMPREHENSIVE METABOLIC PANEL GREEN LI/HEP BLD/PLAS PLASMA SP [facility] Vital Signs: All taken on the encounter date This section contains inpatient and outpatient Vital Signs collected on the date of the Encounter. Date/Time Temperature Pulse Blood Pressure Respiratory Rate SP02 Pain Height Weight Body Mass Index Source Jul 25, 2024 10:43 AM 97.5 54 132/66 18 99 0 124.5 23 [facility] Immunizations: All administered on the encounter date This section contains immunizations associated to the Encounter. Immunization Series Date Issued Reaction Comments INFLUENZA, SPLIT VIRUS, TRIVALENT, PF Jul 25 Social History: Smoking Status (Most current) and Tobacco Use (All prior to encounter date) This section includes the most current, and the historical, smoking and tobacco- related health factors from the [place] facility where the Encounter took place. Current Smoking Status This section includes the most current smoking, or tobacco-related health factor, from the [place] facility where the Encounter took place. Date/Time Current Smoking Status Comment Facil ity Jul 25, 2024 10:30 AM VA-TOBACCO USER EVERY DAY [facility] Tobacco Use History This section includes a history of the smoking, or tobacco-related health factors, that were collected on or before the date of the Encounter. The data comes from the [place] facility where the Encounter took place. Date/Time Smoking Status/Tobacco Use Comment F acility Jul 25, 2024 10:30 AM VA-TOBACCO USE ADVICE 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 Jul 25, 2024 10:30 AM VA-TOBACCO USE MED NO [facility] Jul 25, 2024 10:30 AM VA-TOBACCO USE WI 30 MIN OF WAKEUP [facility] Jul 25, 2024 10:30 AM VA-TOBACCO USER EVERY DAY [facility] Jul 26, 2023 10:00 AM VA-TOBACCO USE 30 YEARS OR MORE [facility] Jul 26, 2023 10:00 AM VA-TOBACCO USE ADVICE 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 Jul 26, 2023 10:00 AM VA-TOBACCO USE MED NO [facility] Jul 26, 2023 10:00 AM VA-TOBACCO USE WI 30 MIN OF WAKEUP [facility] Jul 26, 2023 10:00 AM VA-TOBACCO USER EVERY DAY [facility] Jul 21, 2022 11:00 AM VA-TOBACCO USE 30 YEARS OR MORE [facility] Jul 21, 2022 11:00 AM VA-TOBACCO USE ADVICE 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 Jul 21, 2022 11:00 AM VA-TOBACCO USE MED NOTIFY PROVIDER [facility] Jul 21, 2022 11:00 AM VA-TOBACCO USE MED YES [facility] Jul 21, 2022 11:00 AM VA-TOBACCO USE WI 30 MIN OF WAKEUP [facility] Jul 21, 2022 11:00 AM VA-TOBACCO USER EVERY DAY [facility] Jan 13, 2020 10:39 AM VA-TOBACCO USE 30 YEARS OR MORE [facility] Jan 13, 2020 10:39 AM VA-TOBACCO USE ADVICE 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 Jan 13, 2020 10:39 AM VA-TOBACCO USE MED YES [facility] Jan 13, 2020 10:39 AM VA-TOBACCO USE WI 30 MIN OF WAKEUP [facility] Jan 13, 2020 10:39 AM VA-TOBACCO USER EVERY DAY [facility] Feb 05, 2019 10:32 AM TOBACCO OFFERED PT MEDS (PROVIDER) [facility] Dec 18, 2018 11:00 AM TOBACCO MEDS OFFER ED BUT DECLINED [facility] Dec 18, 2018 11:00 AM VA-TOBACCO USE > 1 5 LESS THAN 30 YEARS [facility] Dec 18, 2018 11:00 AM VA-TOBACCO USE ADVICE 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 Dec 18, 2018 11:00 AM VA-TOBACCO USE MED NOTIFY PROVIDER [facility] Dec 18, 2018 11:00 AM VA-TOBACCO USE WI 30 MIN OF WAKEUP [facility] Dec 18, 2018 11:00 AM VA-TOBACCO USER EVERY DAY [facility] Encounter Notes: All associated encounter notes This section contains the clinical notes associated to the Encounter. Date/Time Encounter Note(s) Provider Source Sep 15, 2024 05:52 PM PHYSICIAN LETTERS: LOCAL TITLE: TEST RESULT GENERAL LETTER STL STANDARD TITLE: PHYSICIAN LETTERS DATE OF NOTE: SEP 15, 2024@17:52 ENTRY DATE: SEP 15, 2024@17:52:22 AUTHOR: JACKIE HAWKINS COSIGNER: URGENCY: STATUS: COMPLETED [facility] [address] [place] [address] SEP 15, 2024 ADRI HUNT [address] [place] [id number] Dear Adri Hunt, I would like to update you on your recent test results. OCCULT BLOOD - Occult blood cards are a screening test for colon cancer. A negative (0) is a good result and means we found no blood in your stool samples. A positive result (1) is abnormal and you should have further testing. OCCULT BLOOD (FIT) #1 OF 1 Negative 08/27/2024 12:00 These readings are within normal limits. Please contact our clinic at [phone] if you have any questions FUTURE APPOINTMENTS: 01/22/2025 10:00 DEEPTI-PACT C9 PCP Sincerely, JACKIE HUNT,JACKIE GARAY [facility] Jul 25, 2024 10:51 AM PRIMARY CARE NOTE: LOCAL TITLE: PRIMARY CARE PROVIDER ESTABLISHED VISIT ST STANDARD TITLE: PRIMARY CARE NOTE DATE OF NOTE: JUL 25, 2024@10:51 ENTRY DATE: JUL 25, 2024@10:51:29 AUTHOR: JACKIE HAWKINS EXP COSIGNER: URGENCY: STATUS: COMPLETED PRIMARY CARE [...] TKR nurse note from today reviewed. C/C: she says had a [facility] appt wi the psychiatrist on 05/06/24 when she got disconnected. She says appt was not a no show. 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 It is uncertain if this is located within glandular tissue such as the parotid gland. Differential diagnosis includes salivary gland mass versus pathologic lymph node. CT neck with contrast is advised. Additionally, biopsy may be considered. -CT neck soft tissue neck 04/18/24: Questionable hypodensity in the inferior aspect of the left parotid gland as discussed above may represent a true lesion or a pseudolesion. Consultation with interventional radiology and ultrasound guided tissue sampling is recommended. -FNA 06/05/24: Pleomorphic adenoma -ENT 07/08/24 noted this as a benign tumor, transformation 1.5% om first five years, 10% in 10 years. Suggested surgery and observation as apprropriate, patient preferred conservativer management. 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[employer]) combat duty: no combat duty ( to a ) domestic: (first marriage) and lives w her O/E: awake, alert, oriented, not in any distress EOMI neck supple, has a small Lymph node behind left angle of mandible lungs CTAP S1S2 + abdomen soft, nt, nd, BS +ve without ankle edema ----> LABS [ x ] reviewed and pertinent labs noted in A/P A/P: patient last seen by this provider in full scheduled OV: 07/26/23 She gives the name of her non va PCP: Dr Harry Wu, works out of [facility] # Insomnia, ADHD, anxiety d/o per hx, e/f depression w/ seasonal component (per psychiatry note 02/12/24) She reports that hydroxyzine is not helpful for sleep, is willing to wait for evaluation by psychiatrist scheduled for 02/12/24 ([facility] appt) #) Lipids: -LDL 162, [...] at next visit and consider statins if necessary. 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 It is uncertain if this is located within glandular tissue such as the parotid gland. Differential diagnosis includes salivary gland mass versus pathologic lymph node. CT neck with contrast is advised. Additionally, biopsy may be considered. -CT neck soft tissue neck 04/18/24: Questionable hypodensity in the inferior aspect of the left parotid gland as discussed above may represent a true lesion or a pseudolesion. Consultation with interventional radiology and ultrasound guided tissue sampling is recommended. -FNA 06/05/24: Pleomorphic adenoma -ENT 07/08/24 noted this as a benign tumor, transformation 1.5% om first five years, 10% in 10 years. Suggested surgery and observation as apprropriate, patient preferred conservativer management. Ordered f/u CT neck for 01/13/25 -speech pathology performed video laryngoscopy on 07/08/24 and noted a normal exam #) L knee pain: -she initially agreed [...] nicotine patches and gum in the past, -has cut down on cigarettes, was smoking a PPD in the past, now about 3/4 PPD. Not ready to quit at this time. #) Health maintenance: -Pap negative and HPV mRNA E6/E7: Not detected on the same date -FIT negative on 06/12/19 -reviewed mammogram report from [facility] of 03/15/24 Bi-RAD@ 2, annual screening was recommended -she says had a colonoscopy in last few years, will get future f/u w non nm provider and will f/u with non nm area forester at [place] for follow up pap smears and mammogram unsure when last PAP done and also does not know where it was done Agrees to get done again at the [place] RTC: ~ 01/22/25 Plan of care has been discussed with including expected therapeutic benefits and potential side effects of prescribed medication and treatments. [place] verbalizes understanding and is in agreement with the plan of care. Patient was instructed to keep all scheduled appointments and contact leather stitcher for any additional problems. Some of this encounter was/ may have created using [employer] system speech recognition software without human assisted living nursing director. This documentation may or may not have been adjusted for typographical, grammatical or syntax imperfections Avg Risk Colorectal Cancer Screen: AVERAGE RISK colorectal cancer screening is due based on information available to this clinical reminder FOBT/FIT (Fecal Immunochemical Testing) has been ordered. See order tab for details. Mammogram Screening: Record prior or outside mammogram: Written Report Available Outside report Received on: July 30, 2024 Location: [facility] Mammogram Screening Date of procedure: March 15, 2024 Comment: BI RADS 2, annual screening recommended The patient has dense breast tissue. Interpretation of results and decision making Summary of results: BIRAD 2: Radiologist recommends the following: Return for screening mammogram in one year Method patient contacted by: Patient already notified/not needed Comment: notified by her non nm provider Additional Information: /es/ JACKIE HAWKINS MD Signed: 07/30/2024 13:31 07/30/2024 ADDENDUM STATUS: COMPLETED Cervical Cancer Screening: The patient declined a cervical cancer screen (cytology and/or HPV testing). Comment: she will get from a provider closer to her home (see scheduling note by Tish Alvarado of 07/30/24 /anastacio/ JACKIE HAWKINS MD Signed: 07/30/2024 18:02 JACKIE HAWKINS [facility] Jul 25, 2024 10:44 AM NURSING NOTE: LOCAL TITLE: V15 PACT FACE TO FACE NOTE ST STANDARD TITLE: NURSING NOTE DATE OF NOTE: JUL 25, 2024@10:44 ENTRY DATE: JUL 25, 2024@10:44:28 AUTHOR: CJ PAREKH EXP COSIGNER: URGENCY: STATUS: COMPLETED Provider Visit: Patient Identifiers : Full Name Date of Reason for visit: Established Follow-Up Mode of Arrival: Ambulatory Allergy Review: PENICILLIN, SULFA DRUGS Allergy list reviewed and remains current. Recent Vital Signs: Temperature: 97.5 F [36.4 C] (07/25/2024 10:43) Pulse: 54 (07/25/2024 10:43) Respiration: 18 (07/25/2024 10:43) B/P: 132/66 (07/25/2024 10:43) Pain: 0 (07/25/2024 10:43) Wt: 124.5 lb [56.47 kg] (07/25/2024 10:43) Ht: 62 in [157.5 cm] (08/28/2023 09:56) BMI: 22.8 POX: 99% (07/25/2024 10:43) Would you like to discuss any personal problem, family problem, alcohol use, drug use, or a mental or emotional illness? No Contact provided Primary Care phone number and encouraged to call if any questions or concerns. Review that after hours nurse line [phone] and emergency room are available 05/06 for patient use. Contact verbalized good understanding. Cigarette Pack Year History: The patient smokes cigarettes. How many years have you smoked cigarettes? # of years: 30 Average number of packs/day over the entire time patient smoked: Packs/day: 0.5 Alcohol Use Screen (AUDIT-C): Alcohol Screen: SCREEN FOR ALCOHOL (AUDIT-C) An alcohol screening test (AUDIT-C) was negative (score=0). 1. How often did you have a drink containing alcohol in the past year? Consider a drink to be a 12 ounce can or bottle of regular beer, 8 ounces of malt liquor, a 5 ounce glass of table wine, or a 1.5 ounce shot of liquor (like scotch, gin, or vodka). Never 2. How many drinks containing alcohol did you have on a typical day when you were drinking in the past year? Response not required due to responses to other questions. 3. How often did you have 4 or more drinks on one occasion in the past year? Response not required due to responses to other questions. Tobacco Use Screening: The patient uses tobacco every day. The patient uses tobacco within 30 minutes of waking up. The patient has been smoking or using tobacco for thirty years or more. Patient was advised to quit smoking and/or using tobacco. Discussion with patient included: - Quitting smoking or tobacco use is one of the most important things you can do to protect and improve your health and [place] has the resources to support you. - Set a quit date when you are ready to quit. - Get support from your family and friends. - Review any past quit attempts- What helped? What didn't? - On the day you plan to quit, get rid of all cigarettes and tobacco products from your home, car or work. - Using a combination of behavioral counseling or other support strategies and FDA-approved cessation medications is the most effective way to ensure success in quitting. Patient was offered Behavioral Counseling and other support strategies to assist with quitting. Discussion with patient included: - Behavioral counseling or other support strategies greatly increases your chances of successfully quitting smoking or tobacco use by helping you develop a quit plan and providing support and other strategies to make behavioral changes to help you quit. - [place] has a number of behavioral counseling options to help you with quitting, including: * Provide information about the facility smoking or tobacco use treatment options or clinics * [place]'s national quitline, 5-410-USZL-VET, with counseling available Monday-Monday The patient was not interested in receiving additional information about how to use the treatment options discussed. Patient was offered FDA-approved cessation medications. Discussion with patient included: - Medications for Nicotine replacement therapy such as the patch, gum or lozenge, and other medications such as varenicline or bupropion, can play an important role in the initial weeks and months after you quit smoking or tobacco use. - Medications help with cravings and withdrawal symptoms and they greatly increase your chances of successfully quitting. The patient was not interested in a prescription for tobacco cessation medications. Learning Assessment: - * This patient's learning ABILITIES, BARRIERS to learning, CULTURAL and YAZDANISM beliefs, and learning PREFERENCES were assessed. Following are findings of note: Patient reads well. Patient has the following hearing/auditory barrier(s) to consider when teaching: No hearing barrier identified. Patient has the following speech barrier to consider when teaching: No speech barrier identified. LANGUAGE Patient reports that Albanian is preferred language for healthcare. Patient has the following language barrier to consider when teaching: No language barrier has been identified. Patient has the following vision barrier(s) to consider when teaching: No vision barrier has been identified. Patient has the following dexterity/mobility barrier(s) to consider when teaching: No dexterity/mobility barrier has been identified. Patient has the following cognitive/memory barrier(s) to consider when teaching: No cognitive/memory barrier has been identified. Patient has the following emotional/psychological barrier(s) to consider when teaching: No emotional/psychosocial barrier has been identified. Patient has the following social support deficit(s) to consider when teaching: No social support issues have been identified. Patient reports learning preference is attending one-to-one or group demonstrations. Sexual Orientation: The patient thinks of their sexual orientation as: Straight or Heterosexual Influenza Immunization: Influenza, Trivalent, Preservative Free (Fluarix-Syringe) Administered: INFLUENZA, SPLIT VIRUS, TRIVALENT, PF Date Administered: Jul 25, 2024 10:30 Sewage Plant Operator: nChannel Lot: [id number] Exp Date: May 12, 2025 Admin Route/Site: INTRAMUSCULAR/RIGHT DELTOID Dosage: 0.5mL Vaccine Information Statement(s): INFLUENZA(FLU) VACC(INACTIVATED OR RECOMBINANT)VIS Jun 18, 2021 (CAMEROONIAN) Order By: Policy Administered By: Cj Parekh The Influenza Vaccine Information Statement (VIS) was reviewed with the patient/caregiver which lists the benefits and risks of the vaccine and the risks of not receiving the Influenza vaccine. The patient/caregiver denied any prior severe reaction to this vaccine or its components or a severe allergic reaction, such as anaphylaxis, to any vaccine or any injectable therapy. The patient/caregiver gave verbal consent to receive the vaccine. /anastacio/ CJ PAREKH Licensed Practical Nurse Signed: 07/25/2024 10:55 CJ PAREKH [facility]
--- OUTSIDE RECORDS SUMMARY | 2024-11-22 22:23 | XMS_ITS | Encounter Summary ---
Author Name Department of [place] Organization [place] Address [address] [place] [address] Care Team Providers Care Cargo Services Coordinator Name Role Phone JACKIE HAWKINS Primary Care [...] Patient's Relationship to Policy Noble [facility] Mar 12, 2010 Jun 18, 2027 [facility] [id number] [phone] ANNE JIMENEZ PATIENT OPTUM RX [facility] Mar 12, 2010 Jun 18, 2027 [facility] [id number] [phone] ANNE JIMENEZ PATIENT Selected Encounter This section includes the information on record at [place] for the Encounter. Date/Time Encounter Type Encounter Description Reason Pro vider Source Jul 25, 2024 10:30 AM Outpatient Encounter EVENT (HISTORICAL) IHE Encounter Template Text not used by [place] Plan of Treatment: Future Appointments (+ 6 [...] 20 appointments. The data comes from all [facility]. Appointment Date/Time Appointment Type Appointme nt Facility Name Aug 29, 2024 10:32 AM AMBULATORY - NONE [facility] Sep 13, 2024 11:00 AM AMBULATORY - MEDICINE [facility] Nov 21, 2024 10:00 AM AMBULATORY - MEDICINE [facility] Nov 21, 2024 10:30 AM AMBULATORY - MEDICINE [facility] Active, Pending, and Scheduled Orders This section includes a listing of several types of active, pending, and scheduled orders, including clinic medications orders, diagnostic test orders, procedure orders and consult orders; where the start date of the order is 45 days before the date of the Encounter or 45 days after the date of theEncounter. The data comes from all [facility]. Test Date/Time Test Type Test Details Facility Name Jul 25, 2024 12:00 AM Laboratory - Chemistry Order LIPID PANEL (STL) GREEN LI/HEP BLD/PLAS PLASMA SP [facility] Jul 25, 2024 12:00 AM Laboratory - Chemistry Order [id number] BLOOD SP [facility] Jul 25, 2024 12:00 AM Laboratory - Chemistry Order TSH (MA-PB) GOLD/RED SST SERUM SP [facility] Jul 25, 2024 12:00 AM Laboratory - Chemistry Order COMPREHENSIVE METABOLIC PANEL GREEN LI/HEP BLD/PLAS PLASMA [facility] Vital Signs: All taken on the encounter date This section contains inpatient and outpatient Vital Signs collected on the date of the Encounter. Date/Time Temperature Pulse Blood Pressure Respiratory Rate SP02 Pain Height Weight Body Mass Index Source Jul 25, 2024 10:43 AM 97.5 54 132/66 18 99 0 124.5 23 [facility] Social History: Smoking Status (Most current) and Tobacco Use (All prior to encounter date) This section includes the most current, and the historical, smoking and tobacco- related health factors from the [place] facility where the Encounter took place. Current Smoking Status This section includes the most current smoking, or tobacco-related health factor, from the [place] facility where the Encounter took place. Date/Time Current Smoking Status Comment Facil ity Jul 25, 2024 10:30 AM [place]-TOBACCO [place] [address] [facility] Tobacco Use History This section includes a history of the smoking, or tobacco-related health factors, that were collected on or before the date of the Encounter. The data comes from the [place] facility where the Encounter took place. Date/Time Smoking Status/Tobacco Use Comment F acility Jul 25, 2024 10:30 AM VA-TOBACCO USE ADVICE [facility] Jul 25, 2024 10:30 AM VA-TOBACCO USE SOCIAL MEDIA INTERN NO [facility] Jul 25, 2024 10:30 AM VA-TOBACCO USE MED NO [facility] Jul 25, 2024 10:30 AM VA-TOBACCO USE [place] [address] [facility] Jul 25, 2024 10:30 AM VA-TOBACCO USER EVERY DAY [facility] Jul 26, 2023 10:00 AM VA-TOBACCO USE [address] [facility] Jul 26, 2023 10:00 AM VA-TOBACCO USE ADVICE [facility] Jul 26, 2023 10:00 AM VA-TOBACCO USE SOCIAL MEDIA INTERN NO [facility] Jul 26, 2023 10:00 AM VA-TOBACCO USE MED NO [facility] Jul 26, 2023 10:00 AM VA-TOBACCO USE [place] [address] [facility] Jul 26, 2023 10:00 AM VA-TOBACCO USER EVERY DAY [facility] Jul 21, 2022 11:00 AM VA-TOBACCO USE [address] [facility] Jul 21, 2022 11:00 AM VA-TOBACCO USE ADVICE [facility] Jul 21, 2022 11:00 AM VA-TOBACCO USE SOCIAL MEDIA INTERN NO [facility] Jul 21, 2022 11:00 AM VA-TOBACCO USE MED NOTIFY PROVIDER [facility] Jul 21, 2022 11:00 AM VA-TOBACCO USE MED YES [facility] Jul 21, 2022 11:00 AM VA-TOBACCO USE [place] [address] [facility] Jul 21, 2022 11:00 AM VA-TOBACCO USER EVERY DAY [facility] Jan 13, 2020 10:39 AM VA-TOBACCO USE [address] [facility] Jan 13, 2020 10:39 AM VA-TOBACCO USE ADVICE [facility] Jan 13, 2020 10:39 AM VA-TOBACCO USE SOCIAL MEDIA INTERN NO [facility] Jan 13, 2020 10:39 AM VA-TOBACCO USE MED YES [facility] Jan 13, 2020 10:39 AM VA-TOBACCO USE [place] [address] [facility] Jan 13, 2020 10:39 AM VA-TOBACCO USER EVERY DAY [facility] Feb 05, 2019 10:32 AM TOBACCO OFFERED PT MEDS (PROVIDER) [facility] Dec 18, 2018 11:00 AM TOBACCO MEDS OFFER ED BUT DECLINED [facility] Dec 18, 2018 11:00 AM VA-TOBACCO USE > 1 5 LESS THAN [address] [facility] Dec 18, 2018 11:00 AM VA-TOBACCO USE ADVICE [facility] Dec 18, 2018 11:00 AM VA-TOBACCO USE SOCIAL MEDIA INTERN NO [facility] Dec 18, 2018 11:00 AM VA-TOBACCO USE MED NOTIFY PROVIDER [facility] Dec 18, 2018 11:00 AM VA-TOBACCO USE [place] [address] [facility] Dec 18, 2018 11:00 AM VA-TOBACCO USER EVERY DAY [facility]
--- OUTSIDE RECORDS SUMMARY | 2024-11-22 22:23 | XMS_ITS | Encounter Summary ---
Author Name Department of Vetera Affairs ([place]) Organization [facility] Address [address] [place] [address] Care Team Providers Care Sow Farm Manager Name Role Phone PATRICK HAWKINS Primary Care Provider Unavailabl e Insurance [...] Noble's Name Patient's Relationship to Policy Noble [facility] Mar 12, 2010 Jun 18, 2027 [facility] [id number] [phone] ANNE JIMENEZ PATIENT OPTUM RX [facility] Mar 12, 2010 Jun 18, 2027 [facility] [id number] [phone] ANNE JIMENEZ PATIENT Selected Encounter This section includes the information on record at [place] for the Encounter. Date/Time Encounter Type Encounter Description Reason Pro vider Source May 07, 2024 01:28 PM Outpatient Encounter [facility] IHE Encounter Template Text not used [...] 20 appointments. The data comes from all [place] treatment facilities. Appointment Date/Time Appointment Type Appointme nt Facility Name Jun 05, 2024 10:30 AM AMBULATORY - MEDICINE [facility] Jul 08, 2024 09:45 AM AMBULATORY - REHAB MEDICIN E [facility] Jul 08, 2024 10:00 AM AMBULATORY - SURGERY [facility] Jul 25, 2024 10:30 AM AMBULATORY - MEDICINE [facility] Aug 29, 2024 10:32 AM AMBULATORY - NONE . [facility] Sep 13, 2024 11:00 AM AMBULATORY - MEDICINE [facility] Lab Results: +/- 30 days [...] Range Comment Apr 18, 2024 09:50 AM [facility] I-STAT, CREAT (STL-MA) Specimen Type: BLOOD Comment: Test Performed by: [id number] Meter #: [id number] Ordering Provider: PATRICK HAWKINS Report Released Date/Time: Apr 18, 2024 09:52 AM Reporting Lab: [place] [id number] [facility] [id number] Performing Lab: [address] [address] I-STAT, CREAT (STL-MA) 0.5 mg/dL L 0.7-1.3 [...] 10:00 AM VA-TOBACCO USER EVERY DAY [facility] Tobacco Use History This section includes a history of the smoking, or tobacco-related health factors, that were collected on or before the date of the Encounter. The data comes from the [place] facility where the Encounter took place. Date/Time Smoking Status/Tobacco Use Comment F acility Jul 26, 2023 10:00 AM VA-TOBACCO USE ADVICE [facility] Jul 26, 2023 10:00 AM VA-TOBACCO USE CARD GRADER NO [facility] Jul 26, 2023 10:00 AM VA-TOBACCO USE MED NO [facility] Jul 26, 2023 10:00 AM VA-TOBACCO USE [place] 30 MIN OF WAKEUP [facility] Jul 26, 2023 10:00 AM VA-TOBACCO USER EVERY DAY [facility] Jul 21, 2022 11:00 AM VA-TOBACCO USE 30 YEARS OR MORE [facility] Jul 21, 2022 11:00 AM VA-TOBACCO USE ADVICE [facility] Jul 21, 2022 11:00 AM VA-TOBACCO USE CARD GRADER NO [facility] Jul 21, 2022 11:00 AM VA-TOBACCO USE MED NOTIFY PROVIDER [facility] Jul 21, 2022 11:00 AM VA-TOBACCO USE MED YES [facility] Jul 21, 2022 11:00 AM VA-TOBACCO USE WI 30 MIN OF WAKEUP [facility] Jul 21, 2022 11:00 AM VA-TOBACCO USER EVERY DAY [facility] Jan 13, 2020 10:39 AM VA-TOBACCO USE 30 YEARS OR MORE [facility] Jan 13, 2020 10:39 AM VA-TOBACCO USE ADVICE [facility] Jan 13, 2020 10:39 AM VA-TOBACCO USE CARD GRADER NO [facility] Jan 13, 2020 10:39 AM VA-TOBACCO USE MED YES [facility] Jan 13, 2020 10:39 AM VA-TOBACCO USE WI 30 MIN OF WAKEUP [facility] Jan 13, 2020 10:39 AM VA-TOBACCO USER EVERY DAY [facility] Feb 05, 2019 10:32 AM TOBACCO OFFERED PT MEDS (PROVIDER) [facility] Dec 18, 2018 11:00 AM TOBACCO MEDS OFFER ED BUT DECLINED [facility] Dec 18, 2018 11:00 AM VA-TOBACCO USE > 1 5 LESS THAN 30 YEARS [facility] Dec 18, 2018 11:00 AM VA-TOBACCO USE ADVICE [facility] Dec 18, 2018 11:00 AM VA-TOBACCO USE CARD GRADER NO [facility] Dec 18, 2018 11:00 AM VA-TOBACCO USE MED NOTIFY PROVIDER [facility] Dec 18, 2018 11:00 AM VA-TOBACCO USE WI 30 MIN OF WAKEUP [facility] Dec 18, 2018 11:00 AM VA-TOBACCO USER EVERY DAY [facility] Radiology Reports: +/- 30 days [...] US GUIDANCE, FIRST LESION: ADRI JIMENEZ ABBY [id number] -1960 F Exm Date: JUN 05, 2024@10:14 Req Phys: PATRICK HAWKINS Pat Loc: [facility]-IR E-CONSULT (Req'g Loc) Img Loc: [facility]PTI-ANGIO/INTERVENTIONAL Service: Unknown [facility], [facility] [address] [place] [address] (Case [id number] COMPLETE) FNA BIOPSY INCLUDING US GUIDANCE,(ANI Detailed) CPT:00182 Reason for Study: FNA left neck mass Clinical History: Report Status: Verified Date Reported: JUN 05, 2024 Date Verified: JUN 05, 2024 Wheel Alignment Mechanic E-Sig:/ANASTACIO/HILARIO DALTON M.D. Report: \H\History: \N\Indeterminate left [...] DALTON M.D., Physician, Vascular & Interventional Rad (Wheel Alignment Mechanic) / HILARIO DALTON [facility] Apr 18, 2024 09:[address] NECK SOFT TISSU E W/CONT: ADRI JIMENEZ [id number] -1960 F Exm Date: APR 18, 2024@09:32 Req Phys: MILIND FONG Loc: [facility]PTI-PACT C9 PCP (Req'g Loc) Img Loc: D[facility]PTI-CT IMAGING DEEPTI Service: Unknown [facility], [facility] [address] [place] [address] (Case [id number] COMPLETE) CT NECK SOFT TISSUE W/CONT (CT Detailed) CPT:03061 Contrast Media : Non-ionic Iodinated Reason for Study: Neck/soft tissue mass Clinical History: Responsible Attending: Patrick Real (Milind Fong MD covering) Attending Contact Number: [phone] Resident Contact Number: recently has a neck u/S, which recommended follow up CT neck with contrast. Please see recent U/S report/images in [facility]. Allergies listed in [facility] chart: PENICILLIN, SULFA DRUGS Creatinine: CREATININE 0.73 mg/dL 08/03/2023 10:10 /eGFR: STL EGFR (within one year). CREATININE 0.73 mg/dL (08/03/23 10:10) Wt: 120.1 lb [54.48 kg] (01/23/2024 10:26) History of: Renal failure, chronic or acute renal disease: NO Report Status: Verified Date Reported: APR 18, 2024 Date Verified: APR 18, 2024 Wheel Alignment Mechanic E-Sig:/ES/CHANDAN DURANT Report: INDICATION: Neck/soft tissue mass [...] intracranial enhancement. No suspicious orbital mass. Visualized continuous mining machine coal miner spaces are normal. Visualized pharynx, retropharynx, and parapharyngeal spaces are normal. Normal larynx. Scattered nonspecific subcentimeter lymph nodes. Impression: Questionable hypodensity in the inferior aspect of the left parotid gland as discussed above may represent a true lesion or a pseudolesion. Consultation with interventional radiology and ultrasound guided tissue sampling is recommended. Primary Interpreting Staff: CHANDAN DURANT, RADIOLOGIST (Wheel Alignment Mechanic) /CHANDAN TRIPP [facility] Pathology Reports: +/- 30 days of [...] comes from all [place] treatment facilities. Date/Time Pathology Report Provider Source Jun 06, 2024 01:03 PM LR CYTOPATHOLOGY R EPORT: LOCAL TITLE: LR CYTOPATHOLOGY REPORT STANDARD TITLE: PATHOLOGY PROCEDURE NOTE DATE OF NOTE: JUN 06, 2024@13:03:10 ENTRY DATE: JUN 06, 2024@13:03:10 AUTHOR: ARNOL PINEDO COSIGNER: URGENCY: STATUS: COMPLETED $APHDR - - [...] - - - $TEXT Submitted by: Mihaela HAWKINS Date obtained: Jun 05, 2024 - - [...] FINE NEEDLE ASPIRATION ON ADRI JIMENEZ ABBY [id number]. 2 PASSES PERFORMED WITH 2 PAP STAINED [...] CONSISTENT WITH PLEOMORPHIC ADENOMA - SEE DESCRIPTION /anastacio/ ARNOL PINEDO PATHOLOGIST Signed Jun 06, 2024@13:03 Performing Laboratory: Cytology Report Performed By: [facility] [address] [facility] CLMI# [id number] [address] [facility] [address] [place] [address] $FTR - - - - - - [...] - - ADRI JIMENEZ STANDARD FORM 515 ID:[id number] SEX:F :1960 AGE: 63 LOC:APFEE PCP: Patrick Hawkins MD /anastacio/ ARNOL PINEDO PATHOLOGIST Signed: 06/06/2024 13:03 ARNOL PINEDO [facility] Encounter Notes: All associated encounter notes This section contains the clinical notes associated to the Encounter. Date/Time Encounter Note(s) Provider Source May 07, 2024 01:28 PM ADMINISTRATIVE NOT E: LOCAL TITLE: SCHEDULING NOTE STL STANDARD TITLE: ADMINISTRATIVE NOTE DATE OF NOTE: MAY 07, 2024@13:28 ENTRY DATE: MAY 07, 2024@13:29:49 AUTHOR: STEPHON RODRIGUEZ EXP COSIGNER: URGENCY: STATUS: COMPLETED SCHEDULING NOTE STL Has ADDENDA Minimum Scheduling attempts to contact the [place] have been made. RTC/Appt/Consult request will be discontinued after 14 days. Clinic: [facility] KAYLA NUNN P[facility] BRANDON: 05/06/24 First Call to - unsuccessful schedulin05/06/24 Second Call to - unsuccessful schedulin05/07/24 Unable to contact , letter sent: 05/06/24 Discontinue date (14 calendar days after letter is mailed): May ADDITIONAL RESULTS FROM SCHEDULING ATTEMPTS: /marianna RODRIGUEZ Advance Certified Medicine Aide Signed: 05/07/2024 13:31 05/21/2024 ADDENDUM STATUS: COMPLETED Minimum Scheduling attempts to contact the [place] have been made. RTC/Appt/Consult request will be discontinued after 14 days. Clinic: [facility] KAYLA NUNN [facility] BR[facility]: 05/06/24 First Call to [place] - unsuccessful schedulin05/06/24 Second Call to [place] - unsuccessful schedulin05/07/24 Third Call to - unsuccessful schedulin05/21/24 Unable to contact , letter sent: 05/06/24 Discontinue date (14 calendar days after letter is mailed): May ADDITIONAL RESULTS FROM SCHEDULING ATTEMPTS: /marianna RODRIGUEZ Advance Certified Medicine Aide Signed: 05/21/2024 11:55 STEPHON RODRIGUEZ [facility]
--- OUTSIDE RECORDS SUMMARY | 2024-11-22 22:23 | XMS_ITS ---
Author Name Department [place] Organization [place] Address [address] [place] [address] Care Team Providers Care Inspector Fuel Hose Name Role Phone ROSS JACKIE Primary Care [...] SOUTH Mar 12, 2010 Jun 18, 2027 [facility] [id number] [phone] ANNE JIMENEZ PATIENT OPTUM RX [facility] Mar 12, 2010 Jun 18, 2027 [facility] [id number] [phone] ANNE JIMENEZ PATIENT Selected Encounter This section includes the information on record at [place] for the Encounter. Date/Time Encounter Type Encounter Description Reason Pro vider Source Jul 25, 2024 03:43 PM Outpatient Encounter ADMIN PAT ACTIVTIES (ARNELNONCT) IHE Encounter Template Text not used by [place] Plan of Treatment: Future Appointments (+ 6 [...] 20 appointments. The data comes from all [facility]. Appointment Date/Time Appointment Type Appointme nt Facility Name Aug 29, 2024 10:32 AM AMBULATORY - NONE [facility] Sep 13, 2024 11:00 AM AMBULATORY - MEDICINE [facility] Nov 21, 2024 10:00 AM AMBULATORY - MEDICINE [facility] Nov 21, 2024 10:30 AM AMBULATORY MEDICINE [facility] Active, Pending, and Scheduled Orders This section includes a listing of several types of active, pending, and scheduled orders, including clinic medications orders, diagnostic test orders, procedure orders and consult orders; where the start date of the order is 45 days before the date of the Encounter or 45 days after the date of theEncounter. The data comes from all [facility]. Test Date/Time Test Type Test Details Facility Name Jul 25, 2024 12:00 AM Laboratory - Chemistry Order LIPID PANEL (STL) GREEN LI/HEP BLD/PLAS PLASMA [facility] Jul 25, 2024 12:00 AM Laboratory - Chemistry Order [id number] BLOOD SP [facility] Jul 25, 2024 12:00 AM Laboratory - Chemistry Order TSH (MA-PB) GOLD/RED SST SERUM [facility] Jul 25, 2024 12:00 AM Laboratory - Chemistry Order COMPREHENSIVE METABOLIC PANEL GREEN LI/HEP BLD/PLAS PLASMA [facility] Vital Signs: All taken on the encounter date This section contains inpatient and outpatient Vital Signs collected on the date of the Encounter. Date/Time Temperature Pulse Blood Pressure Respiratory Rate SP02 Pain Height Weight Body Mass Index Source Jul 25, 2024 10:43 AM 97.5 54 132/66 18 99 0 124.5 23 [facility] Social History: Smoking Status (Most current) and Tobacco Use (All prior to encounter date) This section includes the most current, and the historical, smoking and tobacco- related health factors from the [place] facility where the Encounter took place. Current Smoking Status This section includes the most current smoking, or tobacco-related health factor, from the [place] facility where the Encounter took place. Date/Time Current Smoking Status Comment Facil ity Jul 25, 2024 10:30 AM VA-TOBACCO USER EVERY DAY [facility] Tobacco Use History This section includes a history of the smoking, or tobacco-related health factors, that were collected on or before the date of the Encounter. The data comes from the [place] facility where the Encounter took place. Date/Time Smoking Status/Tobacco Use Comment F acility Jul 25, 2024 10:30 AM VA-TOBACCO USE ADVICE [facility] Jul 25, 2024 10:30 AM VA-TOBACCO USE CHECKROOM CHIEF NO [facility] Jul 25, 2024 10:30 AM VA-TOBACCO USE MED NO [facility] Jul 25, 2024 10:30 AM VA-TOBACCO USE [place] 30 MIN OF WAKEUP [facility] Jul 25, 2024 10:30 AM VA-TOBACCO USER EVERY DAY [facility] Jul 26, 2023 10:00 AM VA-TOBACCO USE 30 YEARS OR MORE [facility] Jul 26, 2023 10:00 AM VA-TOBACCO USE ADVICE [facility] Jul 26, 2023 10:00 AM VA-TOBACCO USE CHECKROOM CHIEF NO [facility] Jul 26, 2023 [...] Jul 21, 2022 11:00 AM VA-TOBACCO USE CHECKROOM CHIEF NO [facility] Jul 21, 2022 [...] Jan 13, 2020 10:39 AM VA-TOBACCO USE CHECKROOM CHIEF NO [facility] Jan 13, 2020 [...] Dec 18, 2018 11:00 AM VA-TOBACCO USE CHECKROOM CHIEF NO [facility] Dec 18, 2018 11:00 AM VA-TOBACCO USE MED NOTIFY PROVIDER [facility] Dec 18, 2018 11:00 AM VA-TOBACCO USE [place] 30 MIN OF WAKEUP [facility] Dec 18, 2018 11:00 AM VA-TOBACCO USER EVERY DAY [facility] Encounter Notes: All associated encounter notes This section contains the clinical notes associated to the Encounter. Date/Time Encounter Note(s) Provider Source Jul 25, 2024 03:43 PM ADMINISTRATIVE NOT E: LOCAL TITLE: SCHEDULING NOTE STL STANDARD TITLE: ADMINISTRATIVE NOTE DATE OF NOTE: JUL 25, 2024@15:43 ENTRY DATE: JUL 25, 2024@15:43:47 AUTHOR: ADRI ASHLEY COSIGNER: URGENCY: STATUS: COMPLETED Additional comments: RECEIVED 2 PG FAX FROM [facility] ADDITIONAL RESULTS FROM SCHEDULING ATTEMPTS: /anastacio/ ADRI ASHLEY ADVANCED MACHINE PRESERVATIVE FILLER Signed: 07/25/2024 15:44 Receipt Acknowledged By: 07/26/2024 08:06 /es/ ADITI GONSALVES REGISTERED NURSE 08/04/2024 21:29 /es/ ADRI HOLGUIN MD [facility]
--- OUTSIDE RECORDS SUMMARY | 2024-11-22 22:23 | XMS_ITS | Encounter Summary ---
Author Name Department of [place] Organization [place] Address [address] [place] [address] Care Team Providers Care Estate Administrator Name Role Phone JACKIE HAWKINS Primary Care [...] Name Patient's Relationship to Policy Noble [facility] Mar 12, 2010 Jun 18, 2027 [facility] [id number] [phone] ANNE JIMENEZ PATIENT OPTUM RX [facility] Mar 12, 2010 Jun 18, 2027 [facility] [id number] [phone] ANNE JIMENEZ PATIENT Selected Encounter This section includes the information on record at [place] for the Encounter. Date/Time Encounter Type Encounter Description Reason Pro vider Source Jul 25, 2024 12:00 AM Outpatient Encounter EVENT (HISTORICAL) IHE Encounter Template Text not used by [place] Plan of Treatment: Future Appointments (+ 6 [...] 20 appointments. The data comes from all [facility]. Appointment Date/Time Appointment Type Appointme nt Facility Name Aug 29, 2024 10:32 AM AMBULATORY - NONE [facility] Sep 13, 2024 11:00 AM AMBULATORY - MEDICINE [facility] Nov 21, 2024 10:00 AM AMBULATORY - MEDICINE [facility] Nov 21, 2024 10:30 AM AMBULATORY - MEDICINE [facility] Active, Pending, and Scheduled Orders This section includes a listing of several types of active, pending, and scheduled orders, including clinic medications orders, diagnostic test orders, procedure orders and consult orders; where the start date of the order is 45 days before the date of the Encounter or 45 days after the date of theEncounter. The data comes from all [facility]. Test Date/Time Test Type Test Details Facility Name Jul 25, 2024 12:00 AM Laboratory - Chemistry Order LIPID PANEL (STL) GREEN LI/HEP BLD/PLAS PLASMA SP [facility] Jul 25, 2024 12:00 AM Laboratory - Chemistry Order HGA1C BLOOD SP [facility] Jul 25, 2024 12:00 AM Laboratory - Chemistry Order TSH (MA-PB) GOLD/RED SST SERUM SP [facility] Jul 25, 2024 12:00 AM Laboratory - Chemistry Order COMPREHENSIVE METABOLIC PANEL GREEN LI/HEP BLD/PLAS PLASMA [facility] Vital Signs: All taken on the encounter date This section contains inpatient and outpatient Vital Signs collected on the date of the Encounter. Date/Time Temperature Pulse Blood Pressure Respiratory Rate SP02 Pain Height Weight Body Mass Index Source Jul 25, 2024 10:43 AM 97.5 54 132/66 18 99 0 124.5 23 [facility] Social History: Smoking Status (Most current) and Tobacco Use (All prior to encounter date) This section includes the most current, and the historical, smoking and tobacco- related health factors from the [place] facility where the Encounter took place. Current Smoking Status This section includes the most current smoking, or tobacco-related health factor, from the [place] facility where the Encounter took place. Date/Time Current Smoking Status Comment Facil ity Jul 25, 2024 10:30 AM VA-TOBACCO USE WI 30 MIN OF WAKEUP [facility] Tobacco Use History This section includes a history of the smoking, or tobacco-related health factors, that were collected on or before the date of the Encounter. The data comes from the [place] facility where the Encounter took place. Date/Time Smoking Status/Tobacco Use Comment F acility Jul 25, 2024 10:30 AM VA-TOBACCO USE ADVICE [facility] Jul 25, 2024 10:30 AM VA-TOBACCO USE RECEIVING DOCK CHECKER NO [facility] Jul 25, 2024 10:30 AM VA-TOBACCO USE MED NO [facility] Jul 25, 2024 10:30 AM VA-TOBACCO USE WI 30 MIN OF WAKEUP [facility] Jul 25, 2024 10:30 AM VA-TOBACCO USER EVERY DAY [facility] Jul 26, 2023 10:00 AM VA-TOBACCO USE 30 YEARS OR MORE [facility] Jul 26, 2023 10:00 AM VA-TOBACCO USE ADVICE [facility] Jul 26, 2023 10:00 AM VA-TOBACCO USE RECEIVING DOCK CHECKER NO [facility] Jul 26, 2023 10:00 AM VA-TOBACCO USE MED NO [facility] Jul 26, 2023 10:00 AM VA-TOBACCO USE WI 30 MIN OF WAKEUP [facility] Jul 26, 2023 10:00 AM VA-TOBACCO USER EVERY DAY [facility] Jul 21, 2022 11:00 AM VA-TOBACCO USE 30 YEARS OR MORE [facility] Jul 21, 2022 11:00 AM VA-TOBACCO USE ADVICE [facility] Jul 21, 2022 11:00 AM VA-TOBACCO USE RECEIVING DOCK CHECKER NO [facility] Jul 21, 2022 11:00 AM VA-TOBACCO USE MED NOTIFY PROVIDER [facility] Jul 21, 2022 11:00 AM VA-TOBACCO USE MED YES [facility] Jul 21, 2022 11:00 AM VA-TOBACCO USE WI 30 MIN OF WAKEUP [facility] Jul 21, 2022 11:00 AM VA-TOBACCO USER EVERY DAY [facility] Jan 13, 2020 10:39 AM VA-TOBACCO USE 30 YEARS OR MORE [facility] Jan 13, 2020 10:39 AM VA-TOBACCO USE ADVICE [facility] Jan 13, 2020 10:39 AM VA-TOBACCO USE RECEIVING DOCK CHECKER NO [facility] Jan 13, 2020 10:39 AM VA-TOBACCO USE MED YES [facility] Jan 13, 2020 10:39 AM VA-TOBACCO USE WI 30 MIN OF WAKEUP [facility] Jan 13, 2020 10:39 AM VA-TOBACCO USER EVERY DAY [facility] Feb 05, 2019 10:32 AM TOBACCO OFFERED PT MEDS (PROVIDER) [facility] Dec 18, 2018 11:00 AM TOBACCO MEDS OFFER ED BUT DECLINED [facility] Dec 18, 2018 11:00 AM VA-TOBACCO USE > 1 5 LESS THAN 30 YEARS [facility] Dec 18, 2018 11:00 AM VA-TOBACCO USE ADVICE [facility] Dec 18, 2018 11:00 AM VA-TOBACCO USE RECEIVING DOCK CHECKER NO [facility] Dec 18, 2018 11:00 AM VA-TOBACCO USE MED NOTIFY PROVIDER [facility] Dec 18, 2018 11:00 AM VA-TOBACCO USE WI 30 MIN OF WAKEUP [facility] Dec 18, 2018 11:00 AM VA-TOBACCO USER EVERY DAY [facility]
--- OUTSIDE RECORDS SUMMARY | 2024-11-22 22:23 | XMS_ITS | Encounter Summary ---
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 Date/Time Encounter Type Encounter Description Reason Provider Source May 06, 2024 08:30 AM Outpatient Encounter TELEPHONE/ANCILLARY FLOR NUNN Encounter Template Text not used by [place] Plan of Treatment: Future Appointments (+ 6 [...] 20 appointments. The data comes from all [place] treatment facilities. Appointment Date/Time Appointment Type Appointme nt Facility Name Jun 05, 2024 10:30 AM AMBULATORY - MEDICINE [facility] Jul 08, 2024 09:45 AM AMBULATORY - REHAB MEDICIN E [facility] Jul 08, 2024 10:00 AM AMBULATORY - SURGERY [facility] Jul 25, 2024 10:30 AM AMBULATORY - MEDICINE [facility] Aug 29, 2024 10:32 AM AMBULATORY - NONE . [facility] Sep 13, 2024 11:00 AM AMBULATORY - MEDICINE [facility] Lab Results: +/- 30 days of the [...] Range Comment Apr 18, 2024 09:50 AM [facility] I-STAT, CREAT (STL-MA) Specimen Type: BLOOD Comment: Test Performed by: [id number] Meter #: [id number] Ordering Provider: PATRICK HAWKINS Report Released Date/Time: Apr 18, 2024 09:52 AM Reporting Lab: [place] [id number] [facility] [address] Performing Lab: [address] [address] I-STAT, CREAT (STL-MA) 0.5 mg/dL L 0.7-1.3 Social History: Smoking Status (Most current) and Tobacco Use (All prior to encounter date) This section includes the most current, and the historical, smoking and tobacco- related health factors from the [place] facility where the Encounter took place. Current Smoking Status This section includes the most current smoking, or tobacco-related health factor, from the [place] facility where the Encounter took place. Date/Time Current Smoking Status Comment Facil ity Jul 26, 2023 10:00 AM VA-TOBACCO USER EVERY DAY [facility] Tobacco Use History This section includes a history of the smoking, or tobacco-related health factors, that were collected on or before the date of the Encounter. The data comes from the [place] facility where the Encounter took place. Date/Time Smoking Status/Tobacco Use Comment F acility Jul 26, 2023 10:00 AM VA-TOBACCO USE ADVICE [facility] Jul 26, 2023 10:00 AM VA-TOBACCO USE VP GLOBAL NO [facility] Jul 26, 2023 10:00 AM VA-TOBACCO USE MED NO [facility] Jul 26, 2023 10:00 AM VA-TOBACCO USE WI 30 MIN OF WAKEUP [facility] Jul 26, 2023 10:00 AM VA-TOBACCO USER EVERY DAY [facility] Jul 21, 2022 11:00 AM VA-TOBACCO USE 30 YEARS OR MORE [facility] Jul 21, 2022 11:00 AM VA-TOBACCO USE ADVICE [facility] Jul 21, 2022 11:00 AM VA-TOBACCO USE VP GLOBAL NO [facility] Jul 21, 2022 11:00 AM VA-TOBACCO USE MED NOTIFY PROVIDER [facility] Jul 21, 2022 11:00 AM VA-TOBACCO USE MED YES [facility] Jul 21, 2022 11:00 AM VA-TOBACCO USE WI 30 MIN OF WAKEUP [facility] Jul 21, 2022 11:00 AM VA-TOBACCO USER EVERY DAY [facility] Jan 13, 2020 10:39 AM VA-TOBACCO USE 30 YEARS OR MORE [facility] Jan 13, 2020 10:39 AM VA-TOBACCO USE ADVICE [facility] Jan 13, 2020 10:39 AM VA-TOBACCO USE VP GLOBAL NO [facility] Jan 13, 2020 10:39 AM VA-TOBACCO USE MED YES [facility] Jan 13, 2020 10:39 AM VA-TOBACCO USE WI 30 MIN OF WAKEUP [facility] Jan 13, 2020 10:39 AM VA-TOBACCO USER EVERY DAY [facility] Feb 05, 2019 10:32 AM TOBACCO OFFERED PT MEDS (PROVIDER) [facility] Dec 18, 2018 11:00 AM TOBACCO MEDS OFFER ED BUT DECLINED [facility] Dec 18, 2018 11:00 AM VA-TOBACCO USE > 1 5 LESS THAN 30 YEARS [facility] Dec 18, 2018 11:00 AM VA-TOBACCO USE ADVICE [facility] Dec 18, 2018 11:00 AM VA-TOBACCO USE VP GLOBAL NO [facility] Dec 18, 2018 11:00 AM VA-TOBACCO USE MED NOTIFY PROVIDER [facility] Dec 18, 2018 11:00 AM VA-TOBACCO USE WI 30 MIN OF WAKEUP [facility] Dec 18, 2018 11:00 AM VA-TOBACCO USER EVERY DAY [facility] Radiology Reports: +/- 30 days of the [...] the Encounter. The data comes from all [place] treatment facilities. Date/Time Radiology Report Provider Source Jun 05, 2024 10:14 AM FNA BIOPSY INCLUDI NG US GUIDANCE, FIRST LESION: ADRI JIMENEZ ABBY [id number] -1960 F Exm Date: JUN 05, 2024@10:14 Req Phys: PATRICK HAWKINS Loc: DEEPTI-IR E-CONSULT (Req'g Loc) Img Loc: DEEPTI-ANGIO/INTERVENTIONAL Service: Unknown [facility] [address] [place] [address] (Case [id number] COMPLETE) FNA BIOPSY INCLUDING US GUIDANCE,(ANI Detailed) CPT:71764 Reason for Study: FNA left neck mass Clinical History: Report Status: Verified Date Reported: JUN 05, 2024 Date Verified: JUN 05, 2024 Final Coat Sprayer E-Sig:/ES/HILARIO DALTON M.D. Report: \H\History: \N\Indeterminate left [...] DALTON M.D., Physician, Vascular & Interventional Rad (Final Coat Sprayer) / HILARIO DALTON [facility] Apr 18, 2024 09:[address] NECK SOFT TISSU E W/CONT: TONYADRI ABBY [id number] -1960 F Exm Date: APR 18, 2024@09:32 Req Phys: MARGUERITE FONG Loc: DEEPTI-PACT C9 PCP (Req'g Loc) Img Loc: DEEPTI-CT IMAGING DEEPTI Service: Unknown [facility] [address] [place] [address] (Case [id number] COMPLETE) CT NECK SOFT TISSUE W/CONT (CT Detailed) CPT:71863 Contrast Media : Non-ionic Iodinated Reason for Study: Neck/soft tissue mass Clinical History: Responsible Attending: Patrick Real (Marguerite Fong MD covering) Attending Contact Number: [phone] Resident Contact Number: recently has a neck u/S, which recommended follow up CT neck with contrast. Please see recent U/S report/images in [facility]. Allergies listed in [facility] chart: PENICILLIN, SULFA DRUGS Creatinine: CREATININE 0.73 mg/dL 08/03/2023 10:10 /eGFR: STL EGFR (within one year). CREATININE 0.73 mg/dL (08/03/23 10:10) Wt: 120.1 lb [54.48 kg] (01/23/2024 10:26) History of: Renal failure, chronic or acute renal disease: NO Report Status: Verified Date Reported: APR 18, 2024 Date Verified: APR 18, 2024 Final Coat Sprayer E-Sig:/ES/CHANDAN DURANT Report: INDICATION: Neck/soft tissue mass [...] intracranial enhancement. No suspicious orbital mass. Visualized meringuer spaces are normal. Visualized pharynx, retropharynx, and parapharyngeal spaces are normal. Normal larynx. Scattered nonspecific subcentimeter lymph nodes. Impression: Questionable hypodensity in the inferior aspect of the left parotid gland as discussed above may represent a true lesion or a pseudolesion. Consultation with interventional radiology and ultrasound guided tissue sampling is recommended. Primary Interpreting Staff: CHANDAN DURANT, RADIOLOGIST (Final Coat Sprayer) /CHANDAN TRIPP [facility] Encounter Notes: All associated encounter notes This section contains the clinical notes associated to the Encounter. Date/Time Encounter Note(s) Provider Source May 06, 2024 08:47 AM MENTAL HEALTH ADMINISTRATIVE NOTE: LOCAL TITLE: [facility] NO SHOW [address] STANDARD TITLE: MENTAL HEALTH ADMINISTRATIVE NOTE DATE OF NOTE: MAY 06, 2024@08:47 ENTRY DATE: MAY 06, 2024@08:47:10 AUTHOR: FLOR NUNN EXP COSIGNER: URGENCY: STATUS: COMPLETED Venus did not attend scheduled appointment. DOES NOT have a high risk flag for suicide assigned to his/her chart. Attempted to contact Venus by phone due to failure to appear for scheduled appointment. missed scheduled appointment. First unsuccessful attempt at phone contact made. Further attempts at contact will be made on separate days. - Implementation Technician (added as signer) is hereby requested to send letter with clinic contact information, encouraging the Venus to call to discuss further services if so desired. Further attempts at phone contact will be made. - Left message for Venus with direct contact information for clinic. - initially did not present for appt; called and was able to initially reach, appeared to connect to [facility], ended phone call and appeared to be having technical issues with [facility] and disconnected, did not reconnect. Called pt back, phone went directly to , left HIPAA compliant message requesting callback. /anastacio/ FLOR NUNN Staff Psychiatrist [facility] [id number] Signed: 05/06/2024 08:48 Receipt Acknowledged By: 05/06/2024 08:49 /anastacio/ STEPHON RODRIGUEZ Advance Senior Business Consultant FLOR NUNN [facility]
--- OUTSIDE RECORDS SUMMARY | 2024-11-22 22:24 | XMS_ITS | Encounter Summary ---
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 Date/Time Encounter Type Encounter Description Reason Pro vider Source Sep 20, 2024 02:55 PM Outpatient Encounter EVENT (HISTORICAL) NESSA FRANK Encounter Template Text not used by [place] Plan of Treatment: Future Appointments (+ 6 [...] 20 appointments. The data comes from all [place] treatment facilities. Appointment Date/Time Appointment Type Appointme nt Facility Name Nov 21, 2024 10:00 AM AMBULATORY - MEDICINE [facility] Nov 21, 2024 10:30 AM AMBULATORY - MEDICINE [facility] Lab Results: +/- 30 days of the encounter This section includes the Chemistry and Hematology Lab Results on record with [place] for the patient. Radiology Reports and Pathology Reports are provided separately, in subsequent sections. Lab Results This section contains the Chemistry/Hematology Results that were resulted 30 days before or 30 daysafter the date of the Encounter. Date/Time Source Result Type Result - Unit Interpretation Reference Range Comment Aug 27, 2024 12:00 PM [facility] OCCULT BLOOD FIT X1 SCREEN Specimen Type: FECES No comment entered. Ordering Provider: JACKIE JOHNSON Report Released Date/Time: Jul 25, 2024 11:20 AM Reporting Lab: [facility] [address] [facility] [address] Performing Lab: [place] [address] [facility] [address] OCCULT BLOOD (FIT) #1 OF 1 Negative Negative Social History: Smoking Status (Most current) and Tobacco Use (All prior to encounter date) This section includes the most current, and the historical, smoking and tobacco- related health factors from the [place] facility where the Encounter took place. Current Smoking Status This section includes the most current smoking, or tobacco-related health factor, from the [place] facility where the Encounter took place. Date/Time Current Smoking Status Comment Facil ity Jul 25, 2024 10:30 AM VA-TOBACCO USE WI 30 MIN OF WAKEUP [facility] Tobacco Use History This section includes a history of the smoking, or tobacco-related health factors, that were collected on or before the date of the Encounter. The data comes from the [place] facility where the Encounter took place. Date/Time Smoking Status/Tobacco Use Comment F acility Jul 25, 2024 10:30 AM VA-TOBACCO USE ADVICE [facility] Jul 25, 2024 10:30 AM VA-TOBACCO USE EMERGENCY SERVICES DIRECTOR NO [facility] Jul 25, 2024 10:30 AM VA-TOBACCO USE MED NO [facility] Jul 25, 2024 10:30 AM VA-TOBACCO USE WI 30 MIN OF WAKEUP [facility] Jul 25, 2024 10:30 AM VA-TOBACCO USER EVERY DAY [facility] Jul 26, 2023 10:00 AM VA-TOBACCO USE 30 YEARS OR MORE [facility] Jul 26, 2023 10:00 AM VA-TOBACCO USE ADVICE [facility] Jul 26, 2023 10:00 AM VA-TOBACCO USE EMERGENCY SERVICES DIRECTOR NO [facility] Jul 26, 2023 10:00 AM VA-TOBACCO USE MED NO [facility] Jul 26, 2023 10:00 AM VA-TOBACCO USE WI 30 MIN OF WAKEUP [facility] Jul 26, 2023 10:00 AM VA-TOBACCO USER EVERY DAY [facility] Jul 21, 2022 11:00 AM VA-TOBACCO USE 30 YEARS OR MORE [facility] Jul 21, 2022 11:00 AM VA-TOBACCO USE ADVICE [facility] Jul 21, 2022 11:00 AM VA-TOBACCO USE EMERGENCY SERVICES DIRECTOR NO [facility] Jul 21, 2022 11:00 AM VA-TOBACCO USE MED NOTIFY PROVIDER [facility] Jul 21, 2022 11:00 AM VA-TOBACCO USE MED YES [facility] Jul 21, 2022 11:00 AM VA-TOBACCO USE WI 30 MIN OF WAKEUP [facility] Jul 21, 2022 11:00 AM VA-TOBACCO USER EVERY DAY [facility] Jan 13, 2020 10:39 AM VA-TOBACCO USE 30 YEARS OR MORE [facility] Jan 13, 2020 10:39 AM VA-TOBACCO USE ADVICE [facility] Jan 13, 2020 10:39 AM VA-TOBACCO USE EMERGENCY SERVICES DIRECTOR NO [facility] Jan 13, 2020 10:39 AM VA-TOBACCO USE MED YES [facility] Jan 13, 2020 10:39 AM VA-TOBACCO USE WI 30 MIN OF WAKEUP [facility] Jan 13, 2020 10:39 AM VA-TOBACCO USER EVERY DAY [facility] Feb 05, 2019 10:32 AM TOBACCO OFFERED PT MEDS (PROVIDER) [facility] Dec 18, 2018 11:00 AM TOBACCO MEDS OFFER ED BUT DECLINED [facility] Dec 18, 2018 11:00 AM VA-TOBACCO USE > 1 5 LESS THAN 30 YEARS [facility] Dec 18, 2018 11:00 AM VA-TOBACCO USE ADVICE [facility] Dec 18, 2018 11:00 AM VA-TOBACCO USE EMERGENCY SERVICES DIRECTOR NO [facility] Dec 18, 2018 11:00 AM VA-TOBACCO USE MED NOTIFY PROVIDER [facility] Dec 18, 2018 11:00 AM VA-TOBACCO USE WI 30 MIN OF WAKEUP [facility] Dec 18, 2018 11:00 AM VA-TOBACCO USER EVERY DAY [facility] Pathology Reports: +/- 30 [...] the Encounter. The data comes from all [facility] facilities. Date/Time Pathology Report Provider Source Sep [...] RECEIVED IN PRESERVCYT SOLUTION LABELED ADRI JIMENEZ [id number]. ONE THINPREP PREPARED. A SPECIMEN ALIQUOT WITH AN APPROPRIATE ORDER FORM IS SUBMITTED TO [facility] FOR HPV TESTING. DIAGNOSIS: SPECIMEN TYPE: ThinPrep [...] RESULT: HPV mRNA E6/E7 NOT DETECTED Methodology: Doubler Helper Mediated Amplification This assay detects E6/E7 viral messenger RNA (mRNA) from 14 high-risk HPV types (16,18,31,35,39,45,51,52,59,66, & 68) [facility] [place], [address] [place] [id number] Enrollment Representative: Nixon Andrade CLIA#:[id number] [facility] for the original HPV report. /es/ NESSA FRANK MD, PhD STAFF PATHOLOGIST Signed Sep 20, 2024@14:55 Performing Laboratory: Cytology Report Performed By: [address] CLIA# [id number] [address] [place] [phone] $FTR - - - - - - [...] - - ADRI JIMENEZ STANDARD FORM 515 ID:[id number] SEX:F :1960 AGE: 64 LOC:PCKIBLI PCP: Jackie Johnson MD /anastacio/ NESSA FRANK MD, PhD STAFF PATHOLOGIST Signed: 09/20/2024 14:55 NESSA FRANK [facility] Encounter Notes: All associated encounter notes This section contains the clinical notes associated to the Encounter. Date/Time Encounter Note(s) Provider Source Sep 20, 2024 02:55 PM PATHOLOGY PROCEDUR E NOTE: LOCAL TITLE: [...] RECEIVED IN PRESERVCYT SOLUTION LABELED ADRI JIMENEZ [id number]. ONE THINPREP PREPARED. A SPECIMEN ALIQUOT WITH AN APPROPRIATE ORDER FORM IS SUBMITTED TO [facility] FOR HPV TESTING. DIAGNOSIS: SPECIMEN TYPE: ThinPrep [...] RESULT: HPV mRNA E6/E7 NOT DETECTED Methodology: Doubler Helper Mediated Amplification This assay detects E6/E7 viral messenger RNA (mRNA) from 14 high-risk HPV types (16,18,31,35,39,45,51,52,59,66, & 68) [facility] [place], [address] [place] [address] Enrollment Representative: Nixon Andrade RODNEY#:[id number] Please see [facility] for the original HPV report. /es/ NESSA FRANK MD, PhD STAFF PATHOLOGIST Signed Sep 20, 2024@14:55 Performing Laboratory: Cytology Report Performed By: [facility] [address] [facility] CLIA# [id number] [address] [place] [phone] $FTR - - - - - - [...] - - ADRI JIMENEZ STANDARD FORM 515 ID:[id number] SEX:F :1960 AGE: 64 LOC:PCKIBLI PCP: Jackie Johnson MD /anastacio/ NESSA FRANK MD, PhD STAFF PATHOLOGIST Signed: 09/20/2024 14:55 NESSA FRANK [facility]
--- OUTSIDE RECORDS SUMMARY | 2024-11-22 22:24 | XMS_ITS | Data Portability ---
Author Organization RASHI LATRICIACha Ventura Address [address] [place] [address] Assessment No assessment recorded. Plan of Treatment Reminders Order Date Submit Date Provider Last Modified By Organization Details Last Modified Time Details Appointments Hospita l Follow- Up 30 2024 11:00A Paulie Wu MD Not available Not available Not available Lab amylase + lipase, serum 2023 024 SAÚL CYNDY, [facility] [address], [address], [place], [address], 01/12/2024 13:10:38 vitamin D, 25-hydr oxy, total, serum 2023 024 SAÚL CYNDY, [address] [place], [place] [address]yaw [address], [address], [place], [address], 01/12/2024 13:10:40 urinaly sis, dipstic k 2023 024 [email or web address] In-Office Order, Internal Use Only DO Not Attach Compendium DO Not Attach Compendium, Do Not Delete/merge, [id number] 01/11/2024 13:39:13 CBC 2023 024 SAÚL NAYLOR, [address], [place], [address], 01/12/2024 13:10:39 TSH, ultra-s ensitiv e, serum 2023 024 SAÚL NAYLOR, [facility] [address], [address], [place], [address], 01/12/2024 13:10:37 hepatic functio n panel, serum 2023 024 SAÚL [facility], [address], [address], [place], [address], 01/12/2024 13:10:36 HBsAg (hepati tis B surface Ag), EIA, serum 2023 024 SAÚL [facility], [address] [facility], [place], [address], 01/12/2024 13:10:35 hepatit is B surface Ab, qualita tive, serum 2023 024 [facility], [address] [facility] [address], [address], [place], [address], 01/12/2024 13:10:38 Hepatit is C IgG Ab, qual, serum 2023 024 SAÚL [facility], [address] [facility] [address], [place], [address], 01/12/2024 13:10:35 hepatic functio n panel, serum 2023 024 [facility], [address] [facility] [address], [address], [place], [address], 08/19/2024 12:00:55 hepatic functio n panel, serum 2023 024 SAÚL [facility], [address] [facility] [address], [address], [place], [address], 07/11/2024 06:20:46 Referral None recorde d. Procedures None recorde d. Surgeries None recorde d. Imaging MAMMO, screeni ng, digital , bilater al 2023 024 [facility] ([facility]), [address] [place], [address], 03/15/2024 10:54:37 MAMMO, screeni ng, digital , bilater al 2023 [email or web address] [address] [place], [address], 03/27/2024 17:06:18 Medication Orders nicotin e 14 mg/24 hr daily transde rmal patch 2022 023 [facility] #30149, [address], [place], [id number], 01/11/2024 12:24:06 bupropi on HCl SR 150 mg tablet, 12 hr sustain ed-rele ase 2022 023 [facility] #91147, [address], [place], [id number], 01/11/2024 12:24:17 quetiap ine 50 mg tablet 2022 023 [facility] #66926, [address], [place], [id number], 01/11/2024 12:24:02 Calcium 600 + D(3) 600 mg-10 mcg (400 unit) tablet [email or web address] [place] [address] [facility] #31200, [address], [place], [id number], 01/11/2024 13:35:55 glucosa min 375 mg-coco d 300 mg-chauncey agen 50 mg-hyal uronic acid 2 mg cap 2023 024 [facility] #98775, [address], [place], [id number], 01/11/2024 13:39:14 Calcium 600 + D(3) 600 mg-10 mcg (400 unit) tablet 2023 [facility] #21083, [address], [place], [id number], 01/11/2024 13:39:17 ondanse lali HCl 4 mg tablet 2023 024 [email or web address] #71342, [address], [place], [id number], 03/11/2024 11:12:18 ergocal ciferol (vitami n D2) 1,250 mcg (50,000 unit) capsule 2023 [facility] #44468, [address], [place], [id number], 03/04/2024 12:03:37 Replens vaginal gel 2023 [facility] #72653, [address], [place], [id number], 03/11/2024 11:53:44 Patient TargetsNo targets recorded. Patient Instructions Encounter Date Encounter Id Patient Instructions Last Modified By Organization Details Last Modified Time 04/27/2023 [id number] deciding about using medicines to quit smoking [email or web address] Not available 04/27/2023 11:47:50 Quitting Tobacco : Care Instructions [email or web address] Not available 04/27/2023 11:47:50 insomnia: care instructions [email or web address] Not available 04/27/2023 11:47:50 01/11/2024 [id number] abdominal pain: care instructions [email or web address] Not available 01/11/2024 13:39:08 knee arthritis: care instructions [email or web address] Not available 01/11/2024 13:39:09 Urinary Tract Infection (UTI) in Women: Care Instructions [email or web address] Not available 01/11/2024 13:39:08 abnormal weight loss: care instructions [email or web address] Not available 01/11/2024 13:39:08 nausea and vomiting: care instructions [email or web address] Not available 01/11/2024 13:39:08 03/04/2024 [id number] learning about breast cancer screening [email or web address] Not available 03/04/2024 12:03:13 03/11/2024 [id number] On the date of this encounter, I was immediately available to assist the resident/fellow in the care of the patient, and have reviewed and agree with the resident? s findings and plan of care. ~MD Lashawn [email or web address] Not available 03/11/2024 11:56:02 07/10/2024 [id number] deciding about using medicines to quit smoking [email or web address] Not available 07/10/2024 10:44:59 Quitting Tobacco : Care Instructions [email or web address] Not available 07/10/2024 10:44:59 Reason for Referral None Reported. Results Created Date Observation Date Name Description Value Unit Range Abnormal Flag Note LastModifiedBy Organization Detail LastModifiedTime 01/11/2001/12/2024 INTER PRETA TION: interpretati on: Commen t Not infec kristie with HCV unles s early or acute infec tion is suspe cted (whic h may be delay ed in an immun ocomp romis ed indiv idual ), or other evide nce exist s to indic ate HCV infec tion. Not Available [facility] ([facility]) [address] [facility], [place], [address], 01/12/2024 13:10:34 01/11/20 24 01/12/2024 HCV ANTIB MARIZA RFX TO QUANT PCR HCV Ab Non Reacti ve nonrea ctive Not Available [facility] ([facility]) [address] [facility], [place], [address], 01/12/2024 13:10:35 01/11/20 24 01/12/2024 HBSAG HBsAg screen Negati ve negati ve Not Available [facility] ([facility]) [address] [facility], [place], [address], 01/12/2024 13:10:35 01/11/20 24 01/12/2024 HEPAT IC FUNCT ION PANEL (7) protein, total 7.6 g/dL 6.0-8. 5 Not Available [facility] ([facility]) [address] [place], [address], 01/12/2024 13:10:36 01/11/20 24 01/12/2024 HEPAT IC FUNCT ION PANEL (7) albumin 5.2 g/dL 3.9-4. 9 above high normal Not Available [facility] ([facility]) [address] [place], [address], 01/12/2024 13:10:36 01/11/20 24 01/12/2024 HEPAT IC FUNCT ION PANEL (7) bilirubin, total 0.5 mg/dL 0.0-1. 2 Not Available [facility] ([facility]) [address] [facility] [place], [address], 01/12/2024 13:10:36 01/11/20 24 01/12/2024 HEPAT IC FUNCT ION PANEL (7) bilirubin, direct 0.17 mg/dL 0.00-0 .40 Not Available [facility] ([facility]) [address] [facility] [place], [address], 01/12/2024 13:10:36 01/11/20 24 01/12/2024 HEPAT IC FUNCT ION PANEL (7) alkaline phosphatase 82 IU/L 44-121 Not Available [facility]) [address] [facility] [place], [address], 01/12/2024 13:10:36 01/11/20 24 01/12/2024 HEPAT IC FUNCT ION PANEL (7) AST (SGOT) 102 IU/L 0-40 above high normal Not Available [facility] ([facility]) [address] [facility] [place], [address], 01/12/2024 13:10:36 01/11/20 24 01/12/2024 HEPAT IC FUNCT ION PANEL (7) ALT (SGPT) 257 IU/L 0-32 above high normal Not Available [facility] ([facility]) [address] [facility], [place], [address], 01/12/2024 13:10:36 01/11/20 24 01/12/2024 TSH RFX ON ABNOR MAL TO FREE T4 TSH 1.080 uIU/m L 0.450- 4.500 Not Available [facility] ([facility]) [address] [facility], [place], [address], 01/12/2024 13:10:37 01/11/20 24 01/12/2024 HEP B SURFA CE AB, QUAL hep B surface Ab, qual Non Reacti ve Non React marcos: Incon siste nt with immun ity, less than 10 mIU/m L React marcos: Consi stent with immun ity, great er than 9.9 mIU/m L Not Available [facility] ([facility]) [address] [facility], [place], [address], 01/12/2024 13:10:38 01/11/20 24 01/12/2024 VALENTINA+L IPASE amylase 75 U/L 31-110 Not Available [facility] ([facility]) [address] [place], [address], 01/12/2024 13:10:38 01/11/20 24 01/12/2024 VALENTINA+L IPASE lipase 65 U/L 14-72 Not Available [facility] ([facility]) [address] [place], [address], 01/12/2024 13:10:38 01/11/20 24 01/12/2024 CBC, PLATE LET, NO DIFFE RENTI AL WBC 5.5 x10e3 /uL 3.4-10 .8 Not Available [facility] ([facility]) [address] [place], [address], 01/12/2024 13:10:39 01/11/20 24 01/12/2024 CBC, PLATE LET, NO DIFFE RENTI AL RBC 4.27 x10e6 /uL 3.77-5 .28 Not Available [facility] ([facility]) [address] [facility], [place], [address], 01/12/2024 13:10:39 01/11/20 24 01/12/2024 CBC, PLATE LET, NO DIFFE RENTI AL hemoglobin 13.9 g/dL 11.1-1 5.9 Not Available [facility] ([facility]) [address] [facility], [place], [address], 01/12/2024 13:10:39 01/11/20 24 01/12/2024 CBC, PLATE LET, NO DIFFE RENTI AL hematocrit 39.4 % 34.0-4 6.6 Not Available [facility] ([facility]) [address] [facility], [place], [address], 01/12/2024 13:10:39 01/11/20 24 01/12/2024 CBC, PLATE LET, NO DIFFE RENTI AL MCV 92 fL 79-97 Not Available [facility] ([facility]) [address] [facility], [place], [address], 01/12/2024 13:10:39 01/11/20 24 01/12/2024 CBC, PLATE LET, NO DIFFE RENTI AL MCH 32.6 pg 26.6-3 3.0 Not Available [facility] ([facility]) [address] [facility], [place], [address], 01/12/2024 13:10:39 01/11/20 24 01/12/2024 CBC, PLATE LET, NO DIFFE RENTI AL MCHC 35.3 g/dL 31.5-3 5.7 Not Available [facility] ([facility]) [address] [facility], [place], [address], 01/12/2024 13:10:39 01/11/20 24 01/12/2024 CBC, PLATE LET, NO DIFFE RENTI AL RDW 13.6 % 11.7-1 5.4 Not Available [facility] ([facility]) [address] [facility], [place], [address], 01/12/2024 13:10:39 01/11/20 24 01/12/2024 CBC, PLATE LET, NO DIFFE RENTI AL platelets 248 x10e3 /uL 150-45 0 Not Available [facility] ([facility]) [address] [facility], [place], [address], 01/12/2024 13:10:39 01/11/20 24 01/12/2024 VITAM IN D, 25-HY DROXY vitamin D, 25-hydroxy 20.8 NG/mL 30.0-1 00.0 below low normal Vitam in D defic iency has been defin ed by the Insti tute of Medic ine and an Endoc rine Socie ty pract ice guide line as a level of serum 25-OH vitam in D less than 20 ng/mL (1,2) . The Endoc rine Socie ty went on to furth er defin e vitam in D insuf ficie ncy as a level betwe en 21 and 29 ng/mL (2). 1. IOM (Inst itute of Medic ine). 2009. Dieta ry refer ence intak es for calci um and D. Bala patterson [place]: The [facility] Press . 2. Apolinar pierre [place], Marika gallegos [place], Felipe off-F errar i SCHMITZ, et al. Evalu ation , treat ment, and preve ntion of vitam in D defic iency : an Endoc rine Socie ty clini surekha pract ice guide line. JCEM. 2010; 96(7) :1911 -30. Not Available [facility] ([facility]) [address] [facility], [place], [address], 01/12/2024 13:10:40 01/11/20 24 01/11/2024 urina lysis , dipst ick Leukocytes Trace Not Available In-Offi ce Order Internal Use Only DO Not Attach Compendium DO Not Attach Compendium, Do Not Delete/merge, 01/11/2024 13:28:17 01/11/20 24 01/11/2024 urina lysis , dipst ick Nitrite negati ve Not Available In-Office Order Internal Use Only DO Not Attach Compendium DO Not Attach Compendium, Do Not Delete/merge, 01/11/2024 13:28:17 01/11/20 24 01/11/2024 urina lysis , dipst ick Urobilinogen .2 Not Available In-Of fice Order Internal Use Only DO Not Attach Compendium DO Not Attach Compendium, Do Not Delete/merge, 01/11/2024 13:28:17 01/11/20 24 01/11/2024 urina lysis , dipst ick Protein 100 Not Available In-Office Order Internal Use Only DO Not Attach Compendium DO Not Attach Compendium, Do Not Delete/merge, 01/11/2024 13:28:17 01/11/20 24 01/11/2024 urina lysis , dipst ick pH 6.0 Not Available In-Office Order Internal Use Only DO Not Attach Compendium DO Not Attach Compendium, Do Not Delete/merge, 01/11/2024 13:28:17 01/11/20 24 01/11/2024 urina lysis , dipst ick Blood Non-He molyze d: Trace Not Available In-Office Order Internal Use Only DO Not Attach Compendium DO Not Attach Compendium, Do Not Delete/merge, 01/11/2024 13:28:17 01/11/20 24 01/11/2024 urina lysis , dipst ick Specific [place] 1.030 Not Available In-Off ice Order Internal Use Only DO Not Attach Compendium DO Not Attach Compendium, Do Not Delete/merge, 01/11/2024 13:28:17 01/11/20 24 01/11/2024 urina lysis , dipst ick Ketone Large (80) Not Available In-Office Order Internal Use Only DO Not Attach Compendium DO Not Attach Compendium, Do Not Delete/merge, [id number] 01/11/2024 13:28:17 01/11/20 24 01/11/2024 urina lysis , dipst ick Bilirubin Negati ve Not Available In-Office Order Internal Use Only DO Not Attach Compendium DO Not Attach Compendium, Do Not Delete/merge, [id number] 01/11/2024 13:28:17 01/11/20 24 01/11/2024 urina lysis , dipst ick Glucose Negati ve Not Available In-Office Order Internal Use Only DO Not Attach Compendium DO Not Attach Compendium, Do Not Delete/merge, [id number] 01/11/2024 13:28:17 07/10/20 24 07/11/2024 HEPAT IC FUNCT ION PANEL (7) protein, total 6.7 g/dL 6.0-8. 5 Not Available [facility] ([facility]) [address] [place], [address], 07/11/2024 06:20:46 07/10/20 24 07/11/2024 HEPAT IC FUNCT ION PANEL (7) albumin 4.6 g/dL 3.9-4. 9 Not Available [facility] ([facility]) [address] [place], [address], 07/11/2024 06:20:46 07/10/20 24 07/11/2024 HEPAT IC FUNCT ION PANEL (7) bilirubin, total 0.4 mg/dL 0.0-1. 2 Not Available [facility] ([facility]) [address] [place], [address], 07/11/2024 06:20:46 07/10/20 24 07/11/2024 HEPAT IC FUNCT ION PANEL (7) bilirubin, direct 0.12 mg/dL 0.00-0 .40 Not Available [facility] ([facility]) [address] [place], [address], 07/11/2024 06:20:46 07/10/20 24 07/11/2024 HEPAT IC FUNCT ION PANEL (7) alkaline phosphatase 80 IU/L 44-121 Not Available [facility]) [address] [facility], [place], [address], 07/11/2024 06:20:46 07/10/20 24 07/11/2024 HEPAT IC FUNCT ION PANEL (7) AST (SGOT) 17 IU/L 0-40 Not Available [facility] ([facility]) [address] [place], [address], 07/11/2024 06:20:46 07/10/20 24 07/11/2024 HEPAT IC FUNCT ION PANEL (7) ALT (SGPT) 15 IU/L 0-32 Not Available [facility] ([facility]) [address] [place], [address], 07/11/2024 06:20:46 01/04/20 24 01/04/2024 CT, abdom en + pelvi s, w/o contr ast No observ ation record ed. [address] [address], [place], [address], 01/12/2024 09:57:07 03/15/20 24 03/15/2024 MAMMO , scree dominique, digit al, bilat eral No observ ation record ed. [facility] [address] [place], [address], 04/01/2024 11:06:07 11/12/20 24 11/12/2024 imagi ng/di agnos tic resul t No observ ation record ed. [facility] [address] [place], [address], 11/12/2024 14:05:18 11/15/19 25 11/15/2024 imagi ng/di agnos tic resul t No observ ation record ed. [id number] [facility] [address], [place], [address], 11/15/2024 14:11:45 11/15/19 25 11/15/2024 imagi ng/di agnos tic resul t No observ ation record ed. [facility] [address] [facility] [address], [place], [address], 11/15/2024 14:16:41 Result Notes None recorded. Problems Name Problem SNOMED Code Status Onset Date Resolution Date Notes Provider Name and Address Organization Details Recorded Time Skin lesion 26665501 Active 2017 right uatsdin and left thigh Not Available [facility] 3 22:49:14 Active immuniza tion Active 2017 Not Available [facility] 3 22:49:13 Screenin g for malignan t neoplasm of breast Active 2017 Not Available [facility] 3 22:49:13 Intentio nal weight loss 154236695 Active 2017 Not Available [facility] 3 22:49:13 Tobacco dependen ce syndrome 12726147 Active 2018 Not Available [facility] 3 22:49:14 Adult health examinat ion Active 2019 Not Available [facility] 3 22:49:13 Osteopen ia 653363679 Active 2020 Not Available [facility] 3 22:49:13 Overweig ht 324446155 Completed 202007/10/2024 Allison Wu MD Attn: Accounting ,[address] [place], [address] , [facility] 4 10:44:36 Pain in left knee Active 2020 Not Available [facility] 3 22:49:13 Osteoart hritis of knee 325236094 Active 2020 LEFT Not Available [facility] 3 22:49:13 Screenin g for malignan t neoplasm of colon Active 2020 Not Available [facility] 3 22:49:13 Mammogra phy abnormal 197479757 Active 2020 Not Available [facility] 3 22:49:13 Postconc ussion syndrome 32906620 Active 2021 Not Available [facility] 22:49:13 Depressi ve disorder 48874306 Active 2021 Not Available [facility] 22:49:13 Insomnia 394310882 Active 2021 Not Available [facility] 22:49:13 Erythema of skin 246124938 Active 2022 Cheeks Allison Wu MD Attn: Accounting ,[address] [facility], [place], [address] , [place] [facility] 3 11:38:50 Liver enzymes outside referenc e range 430339643 Active 2023 High Allison Wu MD Attn: Accounting ,[address] [facility], [place], [address] , [place] [facility] 4 13:25:14 Urinary tract infectio us disease 97503339 Active 2023 Allison Wu MD Attn: Accounting ,[address] [facility], [place], [address] , [place] [facility] 4 13:27:10 Abnormal weight loss 340936719 Active 2023 Allison Wu MD Attn: Accounting ,[address] [facility], [place], [address] , [place] [facility] 4 13:27:36 Abdomina l pain 14962525 Active 2023 Allison Wu MD Attn: Accounting ,[address] [facility], [place], [address] , [place] [facility] 4 13:31:19 Nausea 270981285 Active 2023 Allison Wu MD Attn: Accounting ,[address] [facility], [place], [address] , [place] [facility] 4 13:31:50 Vitamin D deficien cy 47465531 Active 2023 Allison Wu MD Attn: Accounting ,[address] [facility], [place], [address] , [facility] 4 11:58:47 Knee pain Active Not Available [facility] 3 22:49:13 Gastroes ophageal reflux disease 064885064 Active 2015 Not Available [facility] 3 22:49:13 Epigastr ic pain 85743343 Active 2016 Not Available [facility] 3 22:49:13 Pre-surg kp evaluati on Completed 201605/27/2019 Allison Wu MD Attn: Accounting ,[address] [facility], [place], [address] , [facility] 9 17:35:10 History of arthropl asty of right knee 80400387795 54468 Active 2016 Not Available [facility] 3 22:49:13 Problem Notes None recorded. Procedures Surgical History Date Name Laterality Status Provider Name and Address Organization Details Recorded Time 12/09/19 23 Date of Last Mammogram completed Haily Hamlin MA [facility] 03/07/2024 11:57:43 09/23/20 20 Date of Last Pap Smear completed Jil Pierce MA [facility] 09/23/2020 11:17:00 07/04/20 17 TOTAL KNEE ARTHROPLASTY (SURG) completed Ana Orellana [place] [facility] 07/27/2017 15:37:01 03/28/20 17 Joint Injection completed Odell Mcmanus MD [address], [place], [address], [facility] 03/28/2017 11:41:36 03/07/20 17 Joint Injection completed Odell Mcmanus MD [address] [place], [address], [facility] 03/07/2017 11:14:00 Appendectomy completed Anabell Vann [place] [facility] 09/28/2016 12:05:35 Arthroscopic Surgery completed Anabell Vann MA [facility] 09/28/2016 12:05:39 Knee Surgery completed Anabell Vann MA [facility] 09/28/2016 12:05:51 Eye Surgery completed Anabell Vann [place] [facility] 09/28/2016 12:05:58 Imaging Results Imaging Date Name Status LastModified by Organiz ation Details LastModified Time 01/04/2024 CT, abdomen + pelvis, w/o contrast completed [address], [address], 01/12/2024 09:57:07 03/15/2024 MAMMO, screening, digital, bilateral completed [facility] [address] [place], [address], 04/01/2024 11:06:07 11/12/2024 imaging/diagno stic result active [facility] [address] [place], [address], 11/12/2024 14:05:18 11/15/2024 imaging/diagno stic result active [address], [address], 11/15/2024 14:11:45 11/15/2024 imaging/diagno stic result active [address], [address], 11/15/2024 14:16:41 Procedure Notes None recorded. Medical Equipment None Reported. Allergies Allergen ID Allergen Name Allergen Category Reaction Reaction Severity Criticality Documentation Date Start Date Code Code System Note Provider Name and Address Organization Details Recorded Time 55782 Substance with sulfonami de structure and antibacte rial mechanism of action (substanc e) medicatio n Not available Not available Not available 09/28/2016 77209 8003 SNOMED NICOLETTE Sagastume, [facility] 6 12:04:33 95116 Medicinal product containin g penicilli n and acting as antibacte rial agent (product) medicatio n Not available Not available Not available 09/28/2016 18381 05 SNOMED NICOLETTE Sagastume, [facility] 6 12:04:40 Medications Name Sig Start Date Stop Date Status Note LastModified by Organization Details LastModified Time multivitami n tablet Take 1 tablet every day by oral route. 02/08 completed Not Available Not Available Not Available Mapap Extra Strength 500 mg tablet Take 2 tablets 3 times a day by oral route as needed. 10/24 completed Not Available Not Available Not Available bupropion HCl SR 150 mg tablet,12 hr sustained-r elease Take 1 tablet twice a day by oral route. completed Not Available Not Available Not Available nicotine 14 mg/24 hr daily transdermal patch Apply 1 patch every day by transderm al route. completed Not Available Not Available Not Available ondansetron HCl 8 mg tablet 08/04 completed Not Available Not Available Not Available ondansetron HCl 4 mg tablet Take 1 tablet 3 times a day by oral route as needed. 03/11 completed Not Available Not Available Not Available omeprazole 40 mg capsule,del ayed release Take 1 capsule every day by oral route before meals. 10/17 completed Not Available Not Available Not Available Kenalog 40 mg/mL suspension for injection Take 1 mL by injection route. 05/03 completed Not Available Not Available Not Available oxycodone-a cetaminophe n 5 mg-325 mg tablet 10/24 completed Not Available Not Available Not Available aspirin 325 mg tablet,idania yed release 03/11 completed Not Available Not Available Not Available pantoprazol e 40 mg tablet,idania yed release Take 1 tablet every day by oral route before meals. 10/24 completed Not Available Not Available Not Available ranitidine 150 mg tablet Take 1 tablet twice a day by oral route. 04/28 completed Not Available Not Available Not Available diclofenac sodium 75 mg tablet,idania yed release 10/17 completed Not Available Not Available Not Available Replens vaginal gel Insert 1 g 3 times a day by vaginal route as needed. 2023 active Not Available Not Available Not Avai lable mirtazapine 15 mg tablet 08/04 completed Not Available Not Available Not Available ergocalcife rol (vitamin D2) 1,250 mcg (50,000 unit) capsule Take 1 capsule every week by oral route. active Not Available Not Available No t Available ibuprofen 600 mg tablet Take 1 tablet 3 times a day by oral route as needed. 08/04 completed Not Available Not Available Not Available cefuroxime axetil 500 mg tablet active Not Available Not Available No t Available oxybutynin chloride 5 mg tablet I TO 2 TABS PO EVERY 4 HOURS PRN PAIN 10/24 completed Not Available Not Available Not Available ondansetron 4 mg disintegrat ing tablet 03/11 completed Not Available Not Available Not Available diazepam 5 mg tablet 10/24 completed Not Available Not Available Not Available oxycodone 5 mg tablet 10/17 completed Not Available Not Available Not Available Premarin 0.625 mg/gram vaginal cream Insert 0.5 g twice a week by vaginal route. 04/28 completed Not Available Not Available Not Available glucosamin 375 mg-chond 300 mg-collagen 50 mg-hyaluron ic acid 2 mg cap Take 1 capsule twice a day by oral route. 2023 active Not Available Not Available Not Avai lable quetiapine 50 mg tablet TAKE 1 TABLET BY MOUTH EVERY DAY AT BEDTIME completed Not Available Not Available Not Available Calcium 600 + D(3) 600 mg-10 mcg (400 unit) tablet TAKE 1 TABLET BY MOUTH TWO TIMES DAILY FOR CALCIUM REPLACEME NT 2023 active Not Available Not Available Not Avai lable Glucosamine -Chondroiti n Complex 750 mg-625 mg-1,000 unit tablet Take 1 tablet twice a day by oral route. 02/08 completed Not Available Not Available Not Available BinaxNOW COVID-19 Ag Self Test kit 04/27 completed Not Available Not Available Not Available Vitals Date Recorded Body height Body mass index (BMI) Body weight Heart rate Body temperature Oxygen saturation Oxygen saturation in Arterial blood by Pulse oximetry Systolic blood pressure Diastolic blood pressure Provider Name and Address Organization Details Last Updated DateTime 3 157.48 cm 23.6 kg/m2 16243.4 2 g 77 /min 98 [degF] 98 % 98 % 140 mm[Hg] 78 mm[Hg] Anabell Vann [place] - [facility] 3 10:56:57 Date Recorded Body height Body mass index (BMI) Body weight Body temperature Oxygen saturation Oxygen saturation in Arterial blood by Pulse oximetry Heart rate Systolic blood pressure Diastolic blood pressure Provider Name and Address Organization Details Last Updated DateTime 4 157.48 cm 21.4 kg/m2 07116.3 1 g 98 [degF] 98 % 98 % 106 /min 150 mm[Hg] 80 mm[Hg] Anabell Vann MA [facility] 4 12:42:38 Date Recorded Body height Oxygen saturation Oxygen saturation in Arterial blood by Pulse oximetry Body temperature Body mass index (BMI) Body weight Heart rate Systolic blood pressure Diastolic blood pressure Provider Name and Address Organization Details Last Updated DateTime 4 157.48 cm 98 % 98 % 98.1 [degF] 22.3 kg/m2 75789.2 7 g 55 /min 140 mm[Hg] 80 mm[Hg] Anabell Vann MA [facility] 4 11:24:49 Date Recorded Body height Body mass index (BMI) Body weight Systolic blood pressure Diastolic blood pressure Provider Name and Address Organization Details Last Updated DateTime 03/11/2024 157.48 cm 21.7 kg/m2 31162.06 g 128 mm[Hg] 72 mm[Hg] Raheel Montoya MA [facility] 4 11:15:23 Date Recorded Body height Body mass index (BMI) Body weight Oxygen saturation Oxygen saturation in Arterial blood by Pulse oximetry Heart rate Systolic blood pressure Diastolic blood pressure Provider Name and Address Organization Details Last Updated DateTime 4 157.48 cm 22.3 kg/m2 93550.2 7 g 98 % 98 % 61 /min 128 mm[Hg] 80 mm[Hg] Anabell Vann MA [facility] 4 10:25:34 Social History Question Answer Notes LastModified by Organizat ion Details LastModified Time Tobacco Smoking Status Current Every Day Smoker Anabell Vann MA [facility], [facility] 09/28/2016 12:05:03 What Is Your Level Of Alcohol Consumption? Occasional Information not available 09/23/2020 Is Blood Transfusion Acceptable In An Emergency? Yes Information not available 09/23/2020 What Is Your Level Of Caffeine Consumption? Moderate Information not available 09/23/2020 How Much Tobacco Do You Chew? None Information not available 09/23/2020 In The 14 Days Before Symptom Onset, Have You Had Close Contact With A Laboratory-confir med COVID-19 While That Case Was Ill? No Information not available 03/11/2024 In The 14 Days Before Symptom Onset, Have You Had Close Contact With A Person Who Is Under Investigation For COVID-19 While That Person Was Ill? No Information not available 03/11/2024 Have You Been To An Area Known To Be High Risk For COVID-19? No Information not available 03/11/2024 Are You Currently Employed? No Information not available 09/23/2020 What Type Of Diet Are You Following? REGULAR Information not available 09/23/2020 Which Illicit Or Recreational Drugs Have You Used? Marijuana Information not available 09/23/2020 Do You Or Have You Ever Used E-cigarettes Or Vape? Never Used Electronic Cigarettes Information not available 09/23/2020 Education 2 Year College Informatio n not available 09/23/2020 What Is Your Occupation? Retired Information not available 09/23/2020 Live Alone Or With Others? With Others Information not available 09/23/2020 What Was The Date Of Your Most Recent Tobacco Screening? 07/10/2024 Information not available 07/10/2024 How Many Children Do You Have? 0 Information not available 10/13/2020 Performs Monthly Self-breast Exam? No Information no t available 09/23/2020 Do You Use Protection During Sex? No Information not available 09/23/2020 What Is Your Relationship Status? Information not available 09/23/2020 Seat Belts Used Routinely Yes Information not available 09/23/2020 Are You Sexually Active? No Information not available 09/23/2020 Do You Have Smoke And Carbon Monoxide Detectors In Your Home? Yes Information not available 03/11/2024 At What Age Did You Start Smoking Tobacco? 26 Information not available 09/23/2020 How Much Tobacco Do You Smoke? 0.5 PPD Information not available 07/10/2024 General Stress Level Medium Information not available 09/23/2020 Do You Use Sunscreen Routinely? No Information not available 09/23/2020 Has Tobacco Cessation Counseling Been Provided? Yes Information not available 04/27/2023 On What Date Was Tobacco Cessation Counseling Provided? 07/10/2024 Information not available 07/10/2024 How Many Years Have You Smoked Tobacco? 34 Information not available 09/28/2016 Do You Or Have You Ever Used Any Other Forms Of Tobacco Or Nicotine? No Information not available 04/27/2023 Sex: Female Functional Status Question Answer Note LastModified by Organization D etails LastModified Time What is your exercise level? Moderate Information not available 09/23/2020 Mental Status None recorded. Family History Nothing Reported. Medical History Condition Response Muscle, Joint, or Bone Problems Y Seizures/Epilepsy Y Gynecological History Statement/Question Response If Post Menopausal, Age at Menopause 50 Date of Last Mammogram 12/09/2022 Menses Monthly N STIs/STDs N Date of Last Pap Smear 09/23/2020 Current Control Method Menopause Age at First Child 2 Obstetrics History GPAL:G 0 P 0 0 0 0 Type Value Living 0 Total 0 Immunizations Vaccine Type Date Status Note Provider Nam e and Address Organization Details Recorded Time COVID-19, mRNA, LNP-S, PF, 30 mcg/0.3 mL dose 01/22/2021 completed Not Available [facility] 4 15:00:57 COVID-19, mRNA, LNP-S, PF, 30 mcg/0.3 mL dose 02/16/2021 completed Not Available [facility] 4 15:00:57 COVID-19, mRNA, LNP-S, PF, 30 mcg/0.3 mL dose 09/15/2021 completed NICOLETTE P[place], [place] - [facility] 09/15/2021 12:03:42 COVID-19, mRNA, LNP-S, PF, 30 mcg/0.3 mL dose, nish-sucrose 08/08/2022 completed NICOLETTE [place], [place] [facility] 08/08/2022 10:21:26 COVID-19, mRNA, LNP-S, bivalent, PF, 30 mcg/0.3 mL dose 01/18/2023 completed Chen Romero MA [facility], [place] [facility] 01/18/2023 10:06:54 Past Encounters Encounter ID Performer Location Encounter Start Date Encounter Closed Date Diagnosis/Indication Diagnosis SNOMED-CT Code Diagnosis ICD10 Code Diagnosis Note [id number] MD Rozina Chan (Adult Med) [address] [place] [address] [phone] 09/28/2016 11:45:09 09/28/2016 15:04:40 Gastroesophageal reflux disease 822342609 K21.9 Knee pain 36137987 M25.5 69 [id number] MD Rozina Chan (Adult Med) [address] [place] [address] [phone] 0 12/20/2016 11:42:07 12/20/2016 14:55:32 Epigastric pain 63284565 R10.13 [id number] Odell Mcmanus MD [facility] [address] [place] [address] [phone] 2 03/07/2017 09:43:42 03/07/2017 11:26:53 Knee pain 26689281 M25.561 M25.562 Osteoarthr itis of knee 078862517 M17.9 [id number] Odell Mcmanus MD [facility] [address] [place] [address] [phone] 2 03/28/2017 10:17:00 03/28/2017 13:09:34 Osteoarthritis of knee 037692939 M17.9 [id number] MD Rozina Chan (Adult Med) [address] [place] [address] [phone] 0 05/03/2017 10:34:24 05/04/2017 12:08:33 Gastroesophageal reflux disease 252421449 K21.9 Knee pain 88840912 M25.5 69 Pre-surger y evaluation 217655087 Z01.818 May be cleared for surgery [id number] Odell Mcmanus MD [facility] [address] [place] [address] [phone] 2 05/30/2017 09:39:36 06/01/2017 15:22:05 Osteoarthritis of knee 816898658 M17.9 [id number] Od[address]manus MD [facility] [address] [place] [address] [phone] 2 07/18/2017 10:51:46 07/19/2017 12:02:06 Knee pain 75218996 M25.561 M25.562 History of total knee arthroplasty 0839178003 105 Z96.515 [id number] MD Rozina Chan (Adult Med) [address] [place] [address] [phone] 0 08/01/2017 09:28:18 08/02/2017 13:10:51 History of arthroplasty of right knee 3972256324 594756 Z96.651 Pt requesting medication refill. Pt referred back to specialist for refills. [id number] Odell Mcmanus MD [facility] [address] [place] [address] [phone] 2 08/29/2017 10:12:28 08/30/2017 11:13:51 Knee pain 05051388 M25.561 M25.562 History of total knee arthroplasty 6470434904 105 Z96.398 [id number] [facility] [address] [place] [address] [phone] 0 10/17/2017 10:06:23 10/17/2017 11:21:15 Knee pain 05821614 M25.569 Gastroesop hageal reflux disease 740995390 K21.9 [id number] [address] [facility] [address] [place] [address] [phone] 2 11/24/2017 11:19:21 11/24/2017 13:01:56 Knee pain 89342095 M25.561 M25.562 Osteoarthr itis of knee 957626947 M17.9 [id number] MD Rozina Chan (Adult Med) [address] [place] [address] [phone] 0 05/14/2018 12:39:46 05/14/2018 15:58:16 Skin lesion 25042068 L98.9 Active immunization 3387 9002 Z23 Screening for malignant neoplasm of breast 920373560 Z12.31 Intentiona l weight loss 402864164 R63.8 Needs letter re goal [id number] MEME Nicholson (Adult Med) [address] [place] [address] [phone] 0 10/24/2018 13:52:24 10/25/2018 10:09:23 Follow-up consultation 002516815 Z71.2 Ms. Hunt is here today with questions about her mammogram and breast U/S completed July 2018. She initially received word that the mammogram was abnormal and that a diagnostic U/S (Right-robb e) would have to be performed. She then (later that month) received a letter that the initial screening mammogram was normal. Plan:Discu ssed the addendum results posted (07/31/18)- - previous outside mammograph y dated 11/10/15 and 12/23/12 have been submitted for comparison purposes. The RIGHT outer breast mass vs. cyst is stable vs prior mammograph y dating back to at least October 2013.Recom mend annual screening mammograph y. Ms. Hunt will complete a bilateral, screening mammogram July 2019. Adult heal th examination 421357781 Z00.01 Pt interested in the shingles vaccine.En couraged Ms. Hunt to get the Shrigrix vaccine even if she needs to pay out-of-poc ket. [id number] MD Rozina Chan (Adult Med) [address] [place] [address] [phone] 0 05/27/2019 16:27:56 05/28/2019 10:32:42 Tobacco dependence syndrome 07549061 F17.200 History of arthroplasty of right knee 8253386878 115274 Z96.651 Gastroesop hageal reflux disease 417071544 K21.9 [id number] MD Rozina Chan (Adult Med) [address] [place] [address] [phone] 0 05/28/2020 16:04:06 05/29/2020 08:42:19 Screening for malignant neoplasm of breast 919620182 Z12.31 Adult heal th examination 080609226 Z00.00 Pt advised to call insurance re elegibilit y for Silver Sneakers programme [id number] MATTHEW MANRIQUEZ (PCB DESIGNER) [address] [place] [address] [phone] 0 09/23/2020 10:57:05 09/25/2020 19:04:52 Gynecologic examination 50842214 Z01.419 60yo postmenopa usal female presenting for annual WWE.-clini surekha breast & pelvic examinatio ns completed today, unremarkab le -cervical cancer screening: last Pap unknown, performed today. -mammogram performed 08/04/2020, benign findings -routine nuswab completed, treat as needed -Educated osteoporos is prevention including calcium rich diet, weight bearing exercise. Will start supplement . F/u DEXA -RTC in 1yr Venereal d isease screening 115292500 Z11.3 Smoker 35621956 F17.200 Counseled pt on smoking cessation. She declines aids at this time. Atrophic vaginitis 12390 000 N95.2 Pt reporting vaginal dryness with atrophy noted on exam. Start estrogen cream as prescribed . Care instructio ns provided. Screening for osteoporosis 845539959 Z13.820 -Continue weightbear ing exercises [id number] Allison [facility] [address] [place] [address] [phone] 0 04/28/2021 10:08:04 05/03/2021 14:13:54 Adult health examination 766512293 Z00.00 History of arthroplasty of right knee 3269218179 853331 Z96.651 Osteopenia 566872325 M85 .80 Tobacco de pendence syndrome 65434509 Z87.891 Overweight 436047129 E66 .3 Osteoarthr itis of knee 593594999 M17.9 Pain in left knee 230636 1668 49655 M25.790 [id number] [facility] [address] [place] [address] [phone] 0 07/28/2021 09:55:44 07/31/2021 13:59:19 Screening for malignant neoplasm of breast 904212186 Z12.31 Osteopenia 178811248 M85 .80 Cont Ca/Vit D Screening for malignant neoplasm of colon 646418051 Z12.11 Tobacco de pendence syndrome 41886330 Z87.891 Osteoarthr itis of knee 205164603 M17.9 [id number] NICOLETTE Price (Peds) [address] [place] [address] [phone] 0 09/15/2021 11:49:46 09/16/2021 10:09:05 Administration of SARS-CoV-2 mRNA vaccine 5425390675 Z23 [id number] MD Rozina Chan (Adult Med) [address] [place] [address] [phone] 0 02/08/2022 11:14:03 02/09/2022 12:44:20 Postconcussion syndrome 67419941 F07.81 Spouse advised to take pt back to ED if symptoms worsened [id number] MD Rozina Chan (Adult Med) [address] [place] [address] [phone] 0 03/10/2022 11:50:04 03/11/2022 10:23:48 Depressive disorder 15480918 F32.A Postconcus missy syndrome 36923627 F07.81 Doing well at present. Appetite improved [id number] MD Rozina Chan (Adult Med) [address] [place] [address] [phone] 0 08/04/2022 11:27:45 08/05/2022 16:36:56 History of arthroplasty of right knee 0540852404 920856 Z96.651 Osteoarthr itis of knee 385970871 M17.9 Osteopenia 141546099 M85 .80 Cont Ca/Vit D Tobacco de pendence syndrome 78532651 Z87.891 Adult [facility] th examination 991032629 Z00.00 Insomnia 252877229 G47.0 0 [id number] NICOLETTE Price (Peds) [address] [place] [address] [id number] 0 08/08/2022 09:55:50 08/09/2022 10:49:11 Administration of SARS-CoV-2 mRNA vaccine 8529477184 Z23 [id number] MD Rozina Chan (Adult Med) [address] [place] [address] [phone] 0 10/11/2022 10:38:58 10/13/2022 15:39:20 Insomnia 979698948 G47.00 [id number] MD Rozina Chan (Adult Med) [address] [place] [address] [phone] 0 04/27/2023 10:24:36 05/03/2023 11:07:07 Erythema of skin 881056255 L53.9 Observe at present Osteopenia 381993088 M85 .80 Cont Ca/Vit D Insomnia 447595983 G47.0 0 Tobacco de pendence syndrome 42896439 Z87.456 [id number] NICOLETTE Price (Peds) [address] [place] [address] [id number] 0 01/18/2023 09:22:27 01/23/2023 08:59:02 Administration of SARS-CoV-2 mRNA vaccine 8173499227 Z23 [id number] MD Rozina Chan (Adult Med) [address] [place] [address] [phone] 0 01/11/2024 12:19:13 01/12/2024 15:44:25 Liver enzymes outside reference range 584293364 R94.5 Urinary tr act infectious disease 82093642 N39.0 Abnormal weight loss 267 280389 R63.4 Abdominal pain 56150766 R10.9 Nausea 791360680 R11.0 Osteopenia 164265485 M85 .80 Cont Ca/Vit D Osteoarthr itis of knee 733123730 M17.9 [id number] MD Rozina Chan (Adult Med) [address] [place] [address] [phone] 0 03/04/2024 10:44:42 03/06/2024 12:23:14 Screening for malignant neoplasm of breast 682737209 Z12.31 Vitamin D deficiency 347 52391 E55.9 Liver enzy mes outside reference range 305922800 R94.5 [id number] MD Rozina Dietrich (PCB DESIGNER) [address] [place] [address] [phone] 0 03/11/2024 10:48:41 04/15/2024 14:09:34 Vaginal dryness 87137656 N89.8 - vaginal dryness that limits ability to have intercours e.- previously tx with premarin cream in 2019.- she has postmenopa usal.- still has desire to have intercours e but because of dryness does not attempt.- apply moisturize r upt to 3 times daily and also lubricant prior to intercours e Screening mammography 24 317544 Z12.31 - patient due for mammogram- normal manual breast exam [id number] Allison Wu MD [facility] (Adult Med) [facility] [place] [address] 07/10/2024 09:50:39 07/12/2024 15:04:29 Liver enzymes outside reference range 522292424 R94.5 Tobacco de pendence syndrome 19647197 Z87.891 Osteopenia 666701317 M85 .80 Cont Ca/Vit D Health Concerns Section Related Observation LastModified by Organization Detai ls LastModified Time None Recorded Concern Status LastModified by Organization Details LastModified Time None Recorded Advance Directives Directive None Recorded Payers Encounter Date Sequence Insurance Name Policy Number Policy Noble Covered Member ID Noble Member ID Guarantor Name 04/27/2023 1 [facility] (MEDICAID HM) [id number] 0003 Summer Hunt [id number] Summer Hunt 01/11/2024 1 [facility] (MEDICAID HMO) [id number] 0003 Summer Hunt [id number] Summer Hunt 03/04/2024 1 [facility] (MEDICAID HMO) [id number] Summer Hunt [id number] Summer Hunt 03/11/2024 1 [facility] (MEDICAID HMO) [id number] 0003 Summer Hunt [id number] Summer Hunt 07/10/2024 1 [facility] (MEDICAID HMO) [id number] 0003 Summer Hunt [id number] Summer Hunt Notes Date Note Type Note Provider Name and Address Organization Details Recorded Time 04/27/2023 text/html Skin has broken out in the past 2-3 days. Has not used any new products. Continues to have trouble sleeping. Would like to try to stop smoking again. Allison Wu MD Attn: Accounting,[address] [place], [address], [place] [facility] 04/27/2023 11:48:49 01/11/2024 text/html Here for ED foll ow up. Slipped and fell about ten days ago. Seen in ED at [facility] and given IVF. Went to other ED a day later. CT head showed no macute injury. CT abdomen/pelvis OK but AST/ALT elevated. Ptg reportedly has heavy alcohol use around time of fall.She continues to feel sick, nauseated. .Appetite decreased over same period. She continues to hace urinary and frequency.. Allison Wu MD Attn: Accounting, [address] [facility], [place], [address], [place] [facility] 01/11/2024 13:40:30 03/04/2024 text/html Here for f/u. Schmitz s pain in legs after prolonged activity. Has known arthritis in left knee. S/P R TKR. Allison Wu MD Attn: Accounting, [address] [facility], [place], [place], [address] [place] [address], [place] [facility] 03/04/2024 12:04:42 03/11/2024 text/html 63-year-old fema le with a past medical history of depression GERD and tobacco use arrived for a pap smear but records indicate last pap was 09/23/2020 which was normal - arrived with complaints of vaginal dryness that limits ability to have intercourse. previously tx with premarin cream in 2020. She denies any lesion or discharge. She has postmenopausal. She still has desire to have intercourse but because of dryness does not attempt. Cheli Mahoney MD Attn: Accounting, [address] [facility], [place], [address], [place] [facility] 03/19/2024 14:19:32 07/10/2024 text/html Here for f/u. F Allison Wu MD Attn: Accounting, [address] [facility], [place], [address], [place] [facility] 07/10/2024 10:45:24 OBGyn Episode No OBEpisode recorded.
--- OUTSIDE RECORDS SUMMARY | 2024-11-22 22:24 | XMS_ITS | Encounter Summary ---
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 Date/Time Encounter Type Encounter Description Reason Pro vider Source Oct 07, 2024 12:48 PM Outpatient Encounter GENERAL INTERNAL MEDICINE IHE Encounter Template Text not used by [place] Plan of Treatment: Future Appointments (+ 6 [...] comes from all [facility]. Appointment Date/Time Appointment Type Appointme nt Facility Name Nov 21, 2024 10:00 AM AMBULATORY - MEDICINE [facility] Nov 21, 2024 10:30 AM AMBULATORY - MEDICINE [facility] Active, Pending, and Scheduled Orders This [...] comes from all [facility]. Test Date/Time Test Type Test Details Facility Name Nov 21, 2024 11:50 AM Procedure Order CP EKG STL CP EKG - STL Proc Nurse'S Companion's Choice [facility] Nov 21, 2024 07:19 PM Laboratory - Chemi stry Order MRSA SURVL NARES DNA NARES WC [facility] Nov 21, 2024 07:19 PM Consult Order Physical T herapy PT INPT DEEPTI Cons Bedside [facility] Social History: Smoking Status (Most current) [...] 2024 10:30 AM [place]-TOBACCO USER EVERY DAY [facility] Tobacco Use History This section includes a history of the smoking, or tobacco-related health factors, that were collected on or before the date of the Encounter. The data comes from the [place] facility where the Encounter took place. Date/Time Smoking Status/Tobacco Use Comment F acility Jul 25, 2024 10:30 AM [place]-TOBACCO USE ADVICE [facility] Jul 25, 2024 10:30 AM [place]-TOBACCO USE 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 [facility] Jul 25, 2024 10:30 AM VA-TOBACCO USE MED NO [facility] Jul 25, 2024 10:30 AM VA-TOBACCO USE WI 30 MIN OF WAKEUP [facility] Jul 25, 2024 10:30 AM VA-TOBACCO USER EVERY DAY [facility] Jul 26, 2023 10:00 AM VA-TOBACCO USE 30 YEARS OR MORE [facility] Jul 26, 2023 10:00 AM VA-TOBACCO USE ADVICE [facility] Jul 26, 2023 10:00 AM VA-TOBACCO USE 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 [facility] Jul 26, 2023 10:00 AM VA-TOBACCO USE MED NO [facility] Jul 26, 2023 10:00 AM VA-TOBACCO USE WI 30 MIN OF WAKEUP [facility] Jul 26, 2023 10:00 AM VA-TOBACCO USER EVERY DAY [facility] Jul 21, 2022 11:00 AM VA-TOBACCO USE 30 YEARS OR MORE [facility] Jul 21, 2022 11:00 AM VA-TOBACCO USE ADVICE [facility] Jul 21, 2022 11:00 AM VA-TOBACCO USE 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 [facility] Jul 21, 2022 11:00 AM VA-TOBACCO USE MED NOTIFY PROVIDER [facility] Jul 21, 2022 11:00 AM VA-TOBACCO USE MED YES [facility] Jul 21, 2022 11:00 AM VA-TOBACCO USE WI 30 MIN OF WAKEUP [facility] Jul 21, 2022 11:00 AM VA-TOBACCO USER EVERY DAY [facility] Jan 13, 2020 10:39 AM VA-TOBACCO USE 30 YEARS OR MORE [facility] Jan 13, 2020 10:39 AM VA-TOBACCO USE ADVICE [facility] Jan 13, 2020 10:39 AM VA-TOBACCO USE 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 [facility] Jan 13, 2020 10:39 AM VA-TOBACCO USE MED YES [facility] Jan 13, 2020 10:39 AM VA-TOBACCO USE WI 30 MIN OF WAKEUP [facility] Jan 13, 2020 10:39 AM VA-TOBACCO USER EVERY DAY [facility] Feb 05, 2019 10:32 AM TOBACCO OFFERED PT MEDS (PROVIDER) [facility] Dec 18, 2018 11:00 AM TOBACCO MEDS OFFER ED BUT DECLINED [facility] Dec 18, 2018 11:00 AM VA-TOBACCO USE > 1 5 LESS THAN 30 YEARS [facility] Dec 18, 2018 11:00 AM VA-TOBACCO USE ADVICE [facility] Dec 18, 2018 11:00 AM VA-TOBACCO USE 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 The data comes from all [facility]. Date/Time Pathology Report Provider Source Sep 20, [...] RECEIVED IN [employer] SOLUTION LABELED ADRI JIMENEZ [phone]. ONE THINPREP PREPARED. A SPECIMEN ALIQUOT WITH AN APPROPRIATE ORDER FORM IS SUBMITTED TO [facility] FOR HPV TESTING. DIAGNOSIS: SPECIMEN TYPE: ThinPrep [...] RESULT: HPV mRNA E6/E7 NOT DETECTED Methodology: Certified Appliance Service Technician Mediated Amplification This assay detects E6/E7 viral messenger RNA (mRNA) from 14 high-risk HPV types (16,18,31,35,39,45,51,52,59,66, & 68) [facility], [address] [place] [id number] Teacher Private: MALINA Barroso#:[id number] Please see [employer] [facility] for the original HPV report. /anastacio/ NESSA FRANK MD, PhD STAFF PATHOLOGIST Signed Sep 20, 2024@14:55 Performing Laboratory: Cytology Report [facility]: [facility] [address] [place] [address] CLIA# [id number] [address] [place] [id number] $FTR - - - - - - [...] - - ADRI JIMENEZ STANDARD FORM 515 ID:[id number] SEX:F :[id number] AGE: 64 LOC:KII PCP: Jackie Johnson MD /anastacio/ NESSA FRANK MD, PhD STAFF PATHOLOGIST Signed: 09/20/2024 14:[address] [facility] Encounter Notes: All associated encounter notes This section contains the clinical notes associated to the Encounter. Date/Time Encounter Note(s) Provider Source March 15, 2024 12:48 PM SCANNED NOTE: LOCAL TITLE: NON [place] CARE ST STANDARD TITLE: SCANNED NOTE DATE OF NOTE: MARCH 15, 2024@12:48 ENTRY DATE: OCT 07, 2024@12:49:26 AUTHOR: CEDRIC MARK EXP COSIGNER: URGENCY: STATUS: COMPLETED Attached to this note is a scanned copy of [place] medical record consisting of the following document(s): Progress Note, Radiology DOS: 03/15/24 From: [facility] To view the scanned document: 1) You must be logged into [facility] 2) Click on Toolbar 3) Sign on to [facility] /es/ CEDRIC MARK Registered Nurse Signed: 10/07/2024 12:52 CEDRIC MARK [facility]
== END 2024-11-15 16:00 | disposition home or self-care (01) ==
PROVIDERS: Student in an Organized Health Care Education/Training Program; Emergency Provider Student in an Organized Health Care Education/Training Program; PCP Internal Medicine Gastroenterology
DX: R53.81 Other malaise (principal); R51.9 Headache, unspecified; R11.2 Nausea with vomiting, unspecified; B34.9 Viral infection, unspecified; Z20.822 Contact with and (suspected) exposure to COVID-19
CPT/HCPCS: 36415; 70450; 74177; 80053; 81001; 83690; 85025; 87637; 96360; 99284; A9270; J7120; Q9967